=== PATIENT | male | born 1955 | race Caucasian/White ===

== ENCOUNTER 2017-09-22 11:28 | Inpatient (IN) | payer OTHER ==
[~2017-09-22] VITALS: Ht 172.7 cm; Wt 65.0 kg
[~2017-09-22 11:28] MED LIST: Z.0.NO CURRENT MEDS
[2017-09-22] MEDS ORDERED: IOHEXOL 350 MG/ML 10 ML VIAL (for RAD DIAG) IVCONTRAST ONE (11:29)
[2017-09-22 11:36] VITALS: O2SAT 97
--- NOTE | 2017-09-22 11:50 | PD ---
HPI Chief Complaint: fall Time Seen by Provider: 11:29 Travel History International Travel<30 days: No Contact w/Intl Traveler<30days: No History of Present Illness HPI 62-year-old male fell about 10 feet out of a tree and injured his left hip area. He states he did not hit his head or blacked out that he knows of. He denies any other concurrent complaints other than his hip. He states he is not taking any blood thinners. He received morphine and Zofran prior to arrival. His vitals were stable in route. Quality pain is sharp. Severity is moderate now after pain medications. Pain is worse with movement. He denies other modifying factors. He was called a trauma alert based on his age and height of fall with long bone fracture. [facility] Past Medical History Medical History: Denies Significant Hx Past Surgical History Surgical History: No Previous Surgery Social History Tobacco Use: Yes Allergies-Medications (Allergen,Severity, Reaction): Coded Allergies: codeine (Verified Allergy, Severe, violently ill, 09/22/17) Reported Meds & Prescriptions Reported Meds & Active Scripts Active No Active Prescriptions or Reported Medications Review of Systems Except as stated in HPI: all other systems reviewed are Neg Physical Exam Narrative GENERAL: Well-nourished, well-developed patient. SKIN: Warm and dry. HEAD: Normocephalic and atraumatic. EYES: No injection or drainage. ENT: No nasal drainage noted. NECK: Supple, trachea midline. C-collar in place CARDIOVASCULAR: Regular rate and rhythm RESPIRATORY: Breath sounds equal bilaterally. No accessory muscle use. GASTROINTESTINAL: Abdomen soft, non-tender, nondistended. EXTREMITIES:Pain with palpation of left hip, no pain with other joints , neurovascularly intact, no lacerations over, compartments soft. BACK: Nontender without obvious deformity with logroll. NEUROLOGICAL: Awake and alert. Motor and sensory grossly within normal limits other than limited to pain from left hip. Normal speech. Data Data Last Documented VS Vital Signs Date Time Temp Pulse Resp B/P (MAP) Pulse Ox O2 Delivery O2 Flow Rate FiO2 09/22/17 11:36 97 2.00 09/22/17 11:36 Nasal Cannula Orders Orders I-Stat Profile (09/22/17 11:30) Complete Blood Count With Diff (09/22/17 11:30) Prothrombin Time / Inr (Pt) (09/22/17 11:30) Act Partial Throm Time (Ptt) (09/22/17 11:30) Type And Screen (09/22/17 11:30) Chest, Single Ap (09/22/17 11:30) Pelvis, Ap Only (Routine) (09/22/17 11:30) Ct Brain W/O Iv Contrast(Rout) (09/22/17 11:30) Ct Cerv Spine W/O Contrast (09/22/17 11:30) Ct Abd/Pel W Iv Contrast(Rout) (09/22/17 11:30) Ct Thorax/ Chest W Iv Contrast (09/22/17 11:30) Iv Access Insert/Monitor (09/22/17 11:30) Ecg Monitoring (09/22/17 11:30) Oximetry (09/22/17 11:30) Oxygen Administration (09/22/17 11:30) Femur, One View (09/22/17 ) Hip, Ap Only Wo Ap Pelvis (09/22/17 ) Ondansetron Inj (Zofran Inj) (09/22/17 12:00) Iohexol 350 Inj (Omnipaque 350 Inj) (09/22/17 11:29) Mcdonald's Traction (09/22/17 ) Admit Order (Ed Use Only) (09/22/17 13:17) Morphine Inj (Morphine Inj) (09/22/17 13:30) Ondansetron Inj (Zofran Inj) (09/22/17 13:30) Labs Laboratory Tests Test 09/22/17 11:31 White Blood Count 11.7 TH/MM3 Red Blood Count 4.78 MIL/MM3 Hemoglobin 13.6 GM/DL Bedside Hemoglobin 13.3 G/DL Hematocrit 40.6 % Bedside Hematocrit 39.0 % Mean Corpuscular Volume 84.9 FL Mean Corpuscular Hemoglobin 28.3 PG Mean Corpuscular Hemoglobin Concent 33.4 % Red Cell Distribution Width 15.2 % Platelet Count 262 TH/MM3 Mean Platelet Volume 8.0 FL Neutrophils (%) (Auto) 70.9 % Lymphocytes (%) (Auto) 19.7 % Monocytes (%) (Auto) 8.0 % Eosinophils (%) (Auto) 0.8 % Basophils (%) (Auto) 0.6 % Neutrophils # (Auto) 8.3 TH/MM3 Lymphocytes # (Auto) 2.3 TH/MM3 Monocytes # (Auto) 0.9 TH/MM3 Eosinophils # (Auto) 0.1 TH/MM3 Basophils # (Auto) 0.1 TH/MM3 CBC Comment DIFF FINAL Differential Comment Prothrombin Time 10.7 SEC Prothromb Time International Ratio 1.1 RATIO Activated Partial Thromboplast Time 22.7 SEC Bedside Sodium 141 MMOL/L Bedside Potassium 3.7 MMOL/L Bedside Chloride 102 MMOL/L Bedside Blood Urea Nitrogen 16 MG/DL Bedside Creatinine 1.0 MG/DL Bedside Glucose 146 MG/DL MDM Medical Decision Making Medical Screen Exam Complete: Yes Emergency Medical Condition: Yes Interpretation(s) I stats revealed and are normal Last 24 hours Impressions Pelvis X-Ray 09/22/171129 Signed Impressions: Service Date/Time: September 11:30 - CONCLUSION: Nondisplaced fractures suspected involving the pelvis as detailed above. Consider CT to further evaluate. Yaniv Alvarez Jr., MD Head CT 09/22/171129 Signed Impressions: Service Date/Time: September 11:42 - CONCLUSION: 1. No acute hemorrhage or mass effect. 2. Remote postsurgical changes with screw-plate fixation devices anterior maxilla. There is an apparent old left nasal bone fracture. Lalo Danielson MD Chest X-Ray 09/22/171129 Signed Impressions: Service Date/Time: September 11:30 - CONCLUSION: 1. Negative portable chest status post trauma. Vaughn Beltre MD Chest CT 09/22/170 Signed Impressions: Service Date/Time: September 11:50 - CONCLUSION: 1. Enlarged bilateral axillary adenopathy and adenopathy in the upper abdomen concerning for lymphoma/leukemia versus metastatic disease. 2. No acute thoracic injury. 3. Large hiatal hernia. 4. Right lower lateral rib fracture appear subacute to chronic. Hong Damian MD Cervical Spine CT 09/22/170 Signed Impressions: Service Date/Time: September 11:44 - CONCLUSION: 1. No fracture or dislocation. 2. Mild degenerative changes. Yaniv Alvarez Jr., MD Abdomen/Pelvis CT 09/22/171129 Signed Impressions: Service Date/Time: September 11:48 - CONCLUSION: 1. Acute fractures involving the left ischium, left inferior pubic ramus, and left intertrochanteric hip with small left pelvic hematoma. 2. Retroperitoneal adenopathy worrisome for a myeloproliferative disorder. 3. Tiny low-density lesions involving the liver likely related to cysts. Yaniv Alvarez Jr., MD Hip X-Ray 09/22/17 0000 Signed Impressions: Service Date/Time: September 11:30 - CONCLUSION: 1. Comminuted left femoral intertrochanteric fracture. 2. Nondisplaced left inferior pubic ramus fracture. Vaughn Beltre MD Femur X-Ray 09/22/17 0000 Signed Impressions: Service Date/Time: September 11:30 - CONCLUSION: 1. Comminuted left femoral intertrochanteric fracture. 2. Nondisplaced left inferior pubic ramus fracture. Vaughn Beltre MD Differential Diagnosis Fracture, strain, sprain, bleed Narrative Course Patient was brought into the trauma room. Vital stable. Emergency department E -FAST was performed with patient consent. The curvilinear probe was used in the right upper quadrant/Morison's pouch, suprapubic, left upper quadrant/spleenorenal space, epigastric, parasternal long axis. There was no evidence of peritoneal free fluid, pericardial effusion Patient was removed from backboard and went to CT on the monitor. Workup showed hip fracture, and pelvic fractures with hematoma. Patient also updated about concerning findings of adenopathy with concerns for myeloproliferative disorder and he has not her that this and understands this will need to be worked up. He agrees to admission Physician Communication Physician Communication Dr. Betancourt agrees to admit Diagnosis Primary Impression: Fracture, intertrochanteric, left femur Qualified Codes: S72.142A - Displaced intertrochanteric fracture of left femur , initial encounter for closed fracture Additional Impressions: Fracture of left ischium Fracture of left inferior pubic ramus Qualified Codes: S32.592A - Other specified fracture of left pubis, initial encounter for closed fracture Pelvic hematoma in male Admitting Information Admitting Physician Requests: Admit Scripts No Active Prescriptions or Reported Meds Betty Simms MD Sep 22, 2017 11:50
[2017-09-22 11:52] LABS: AUTOMATED NEUTROPHIL # 8.3 TH/MM3 (1.8-7.7); BASOPHIL # 0.1 TH/MM3 (0-0.2); BASOPHIL % 0.6 % (0.0-2.0); EOSINOPHIL # 0.1 TH/MM3 (0-0.4); EOSINOPHIL % 0.8 % (0.0-4.0); HEMATOCRIT 40.6 % (39.0-51.0); HEMOGLOBIN 13.6 GM/DL (13.0-17.0); LYMPH % 19.7 % (9.0-44.0); LYMPHOCYTE # 2.3 TH/MM3 (1.0-4.8); MEAN CELL VOLUME 84.9 FL (80.0-100.0); MEAN CORPUSCULAR HEMOGLOBIN 28.3 PG (27.0-34.0); MEAN CORPUSCULAR HGB CONC 33.4 % (32.0-36.0); MONOCYTE # 0.9 TH/MM3 (0-0.9); NEUT % 70.9 % (16.0-70.0); PLATELET COUNT 262 TH/MM3 (150-450); RED BLOOD COUNT 4.78 MIL/MM3 (4.50-5.90); RED CELL DISTRIBUTION WIDTH 15.2 % (11.6-17.2); WHITE BLOOD COUNT 11.7 TH/MM3 (4.0-11.0)
--- NOTE | 2017-09-22 11:53 | RADRPT ---
EXAM DATE/TIME: 09/22/2017 11:30 [facility] COMPARISON: No previous studies available for comparison. INDICATIONS : Trauma alert. Fall. MEDICAL HISTORY : None. SURGICAL HISTORY : None. ENCOUNTER: Initial ACUITY: 1 day PAIN SCORE: Non-responsive. LOCATION: Bilateral chest FINDINGS: A single view of the chest demonstrates the lungs to be symmetrically aerated without evidence of mas s, infiltrate or effusion. The cardiomediastinal contours are unremarkable. Osseous structures are intact. CONCLUSION: 1. Negative portable chest status post trauma. Vaughn Beltre MD on September 22, 2017 at 11:49 Board Certified Radiologist. This report was verified electronically.
--- NOTE | 2017-09-22 11:55 | RADRPT ---
EXAM DATE/TIME: 09/22/2017 11:30 [facility] COMPARISON: No previous studies available for comparison. INDICATIONS : Trauma alert. Fall. MEDICAL HISTORY : None. SURGICAL HISTORY : None. ENCOUNTER: Initial ACUITY: 1 day PAIN SCORE: Non-responsive. LOCATION: Left pelvis FINDINGS: A single portable frontal view the chest shows linear lucencies involving the right pubis as well as the left inferior pubic ramus. Similar finding involving the ischium on the left. Concern for possibl e nondisplaced fractures in these locations. Remaining pelvis is intact. CONCLUSION: Nondisplaced fractures suspected involving the pelvis as detailed above. Consider CT to further evalu ate. Yaniv Alvarez Jr., MD on September 22, 2017 at 11:48 Board Certified Radiologist. This report was verified electronically.
--- NOTE | 2017-09-22 11:56 | RADRPT ---
EXAM DATE/TIME: 09/22/2017 11:30 [facility] COMPARISON: No previous studies available for comparison. INDICATIONS : Trauma alert. Fall. MEDICAL HISTORY : None. SURGICAL HISTORY : None. ENCOUNTER: Initial ACUITY: 1 day PAIN SCORE: Non-responsive. LOCATION: Left femur FINDINGS: There is a comminuted intertrochanteric fracture of the left femur. There is also a nondisplaced left inferior pubic ramus fracture. Soft tissues are grossly unremarkable. CONCLUSION: 1. Comminuted left femoral intertrochanteric fracture. 2. Nondisplaced left inferior pubic ramus fracture. Vaughn Beltre MD on September 22, 2017 at 11:50 Board Certified Radiologist. This report was verified electronically.
--- NOTE | 2017-09-22 11:57 | RADRPT ---
EXAM DATE/TIME: 09/22/2017 11:30 [facility] COMPARISON: No previous studies available for comparison. INDICATIONS : Trauma alert. Fall. MEDICAL HISTORY : None. SURGICAL HISTORY : None. ENCOUNTER: Initial ACUITY: 1 day PAIN SCORE: Non-responsive. LOCATION: Left hip FINDINGS: Comminuted intertrochanteric fracture of the left femur. Nondisplaced left inferior pubic ramus fract ure. Peak symphysis and SI joints appear maintained. Visualized sacral arches are intact. Soft tissue s are unremarkable. CONCLUSION: 1. Comminuted left femoral intertrochanteric fracture. 2. Nondisplaced left inferior pubic ramus fracture. Vaughn Beltre MD on September 22, 2017 at 11:53 Board Certified Radiologist. This report was verified electronically.
--- NOTE | 2017-09-22 11:57 | RADRPT ---
EXAM DATE/TIME: 09/22/2017 11:42 [facility] COMPARISON: No previous studies available for comparison. INDICATIONS : Truma fell out of a tree RADIATION DOSE: 69.15 CTDIvol (mGy) MEDICAL HISTORY : unable to obtain SURGICAL HISTORY : unable to obtain ENCOUNTER: Initial ACUITY: 1 day PAIN SCALE: 8/10 LOCATION: cranial TECHNIQUE: Multiple contiguous axial images were obtained of the head. Using automated exposure control and adj ustment of the mA and/or kV according to patient size, radiation dose was kept as low as reasonably a chievable to obtain optimal diagnostic quality images. DICOM format image data is available electro nically for review and comparison. FINDINGS: CEREBRUM: The ventricles are normal for age. No evidence of midline shift, mass lesion, hemorrhage or acute in farction. No extra-axial fluid collections are seen. POSTERIOR FOSSA: The cerebellum and brainstem are intact. The 4th ventricle is midline. The cerebellopontine angle i s unremarkable. EXTRACRANIAL: The visualized portion of the orbits is intact. SKULL: The calvaria is intact. No evidence of skull fracture. Postoperative changes are noted with screw-pl ate fixation devices along the maxilla. There is an old fracture of left nasal bone. CONCLUSION: 1. No acute hemorrhage or mass effect. 2. Remote postsurgical changes with screw-plate fixation devices anterior maxilla. There is an appare nt old left nasal bone fracture. Lalo Danielson MD on September 22, 2017 at 11:52 Board Certified Radiologist. This report was verified electronically.
[2017-09-22] MEDS ORDERED: SODIUM CHLOR 0.9% 250 ML INJ 250 ML IV ONE (12:00)
[2017-09-22] MEDS ORDERED: ONDANSETRON HCL 4 MG/2 ML VIAL ONE (12:00)
[2017-09-22] MEDS ORDERED: LIDOCAINE HCL 1% PF 5 ML SYRINGE OTHER ONE (12:00)
[2017-09-22] MEDS ORDERED: NEOSTIGMINE 5 MG/5 ML SYRINGE IV PUSH ONE (12:00)
[2017-09-22] MEDS ORDERED: ONDANSETRON HCL 4 MG/2 ML VIAL IV ONE (12:00)
[2017-09-22] MEDS ORDERED: ROCURONIUM INJ 50 MG/5 ML SYRINGE IV PUSH ONE (12:00)
[2017-09-22] MEDS ORDERED: DEXAMETHASONE SOD PHOS 4 MG/ML VIAL IV ONE (12:00)
[2017-09-22] MEDS ORDERED: GLYCOPYRROLATE 1 MG/5 ML SYRINGE IV PUSH ONE (12:00)
[2017-09-22] MEDS ORDERED: PROPOFOL 200 MG/20 ML AMP IV ONE (12:00)
[2017-09-22 12:01] LABS: INTERNATIONAL NORMALIZED RATIO 1.1 RATIO; PROTHROMBIN TIME - PATIENT 10.7 SEC (9.8-11.6)
--- NOTE | 2017-09-22 12:18 | RADRPT ---
EXAM DATE/TIME: 09/22/2017 11:50 [facility] COMPARISON: No previous studies available for comparison. INDICATIONS : Fell out of a tree IV CONTRAST: 95 cc Omnipaque 350 (iohexol) IV ; Cumulative dose for multiple exams. RADIATION DOSE: 5.1 CTDIvol (mGy) ; Combined studies - Thorax/Abdomen/Pelvis MEDICAL HISTORY : Unable to obtain SURGICAL HISTORY : unable to obtain ENCOUNTER: Initial ACUITY: 1 day PAIN SCALE: 8/10 LOCATION: chest TECHNIQUE: Volumetric scanning of the chest was performed. Using automated exposure control and adjustment of t he mA and/or kV according to patient size, radiation dose was kept as low as reasonably achievable to obtain optimal diagnostic quality images. DICOM format image data is available electronically for review and comparison. Follow-up recommendations for detected pulmonary nodules are based at a minimum on nodule size and pa tient risk factors according to Fleischner Society Guidelines. FINDINGS: LUNGS: There is no consolidation or pneumothorax. Several 3-4 mm neither nodules in the right lung, likely b enign. PLEURA: There is no pleural thickening or pleural effusion. MEDIASTINUM: The heart and great vessels demonstrate no acute abnormality. There is no mediastinal or hilar lymph adenopathy. AXILLAE: Enlarged bilateral axillary lymphadenopathy. SKELETAL: Right lower lateral rib fracture appears subacute to chronic. Vertebral plana of T7 likely old injury MISCELLANEOUS: The visualized upper abdominal organs demonstrate no acute abnormality. Subcentimeter low densities. CONCLUSION: 1. Enlarged bilateral axillary adenopathy and adenopathy in the upper abdomen concerning for lymphoma /leukemia versus metastatic disease. 2. No acute thoracic injury. 3. Large hiatal hernia. 4. Right lower lateral rib fracture appear subacute to chronic. Hong Damian MD on September 22, 2017 at 12:12 Board Certified Radiologist. This report was verified electronically.
--- NOTE | 2017-09-22 12:28 | RADRPT ---
EXAM DATE/TIME: 09/22/2017 11:44 [facility] COMPARISON: No previous studies available for comparison. INDICATIONS : Fell out of a tree RADIATION DOSE: 31.78 CTDIvol (mGy) MEDICAL HISTORY : Unable to obtain SURGICAL HISTORY : unable to obtain ENCOUNTER: Initial ACUITY: 1 day PAIN SCALE: 8/10 LOCATION: neck TECHNIQUE: Volumetric scanning of the cervical spine was performed. Multiplanar reconstructions in the sagittal, coronal and oblique axial planes were performed. Using automated exposure control and adjustment o f the mA and/or kV according to patient size, radiation dose was kept as low as reasonably achievable to obtain optimal diagnostic quality images. DICOM format image data is available electronically f or review and comparison. FINDINGS: VERTEBRAE: Normal vertebral body height. ALIGNMENT: No evidence of subluxation. C2-C3: The bony spinal canal is normal in size. No evidence of disc bulge or herniation. The neural forami na are bilaterally patent. C3-C4: There is a minimal broad-based disc bulge. No abutment of the cord or central canal stenosis. Neural foramina on the right shows mild narrowing due to bony uncovertebral hypertrophy. The left is patent. C4-C5: Minimal broad-based disc bulge. No central canal stenosis or abutment of the cord. Neural foramina ar e patent. C5-C6: There is a mild broad-based disc osteophyte complex that just touches the ventral portion of the cord . Central canal measures 1 cm in anterior to posterior dimension. Bony uncovertebral hypertrophy gene rates mild neural foraminal narrowing bilaterally. C6-C7: The bony spinal canal is normal in size. No evidence of disc bulge or herniation. The neural forami na are bilaterally patent. C7-T1: The bony spinal canal is normal in size. No evidence of disc bulge or herniation. The neural forami na are bilaterally patent. CONCLUSION: 1. No fracture or dislocation. 2. Mild degenerative changes. Yaniv Alvarez Jr., MD on September 22, 2017 at 12:03 Board Certified Radiologist. This report was verified electronically.
--- NOTE | 2017-09-22 12:36 | RADRPT ---
EXAM DATE/TIME: 09/22/2017 11:48 [facility] COMPARISON: PELVIS AP ONLY, September 22, 2017, 11:30. INDICATIONS : Fell out of tree IV CONTRAST: 95 cc Omnipaque 350 (iohexol) IV ; Cumulative dose for multiple exams. ORAL CONTRAST: No oral contrast ingested. RADIATION DOSE: 5.1 CTDIvol (mGy) ; Combined studies - Thorax/Abdomen/Pelvis MEDICAL HISTORY : unable to obtain SURGICAL HISTORY : unable to obtain ENCOUNTER: Initial ACUITY: 1 day PAIN SCALE: 8/10 LOCATION: Abdomen TECHNIQUE: Volumetric scanning of the abdomen and pelvis was performed. Using automated exposure control and ad justment of the mA and/or kV according to patient size, radiation dose was kept as low as reasonably achievable to obtain optimal diagnostic quality images. DICOM format image data is available electro nically for review and comparison. FINDINGS: LOWER LUNGS: A large hiatal hernia. Lung bases are clear. No pericardial effusion. LIVER: Numerous tiny low density lesions are seen scattered throughout the liver. These are too small to acc urately characterize. They are well circumscribed and very low in density. No solid-appearing lesions . Portal vein is patent. Gallbladder is unremarkable. SPLEEN: Normal size without lesion. PANCREAS: Within normal limits. KIDNEYS: Normal in size and shape. There is no mass, stone or hydronephrosis. ADRENAL GLANDS: Within normal limits. VASCULAR: There is no aortic aneurysm. BOWEL/MESENTERY: The stomach, small bowel, and colon demonstrate no acute abnormality. There is no free intraperitone al air or fluid. ABDOMINAL WALL: Within normal limits. RETROPERITONEUM: There is retroperitoneal adenopathy observed within the cephalad portion of the retroperitoneum. This is centered around the level the renal artery origins. The largest lymph node that can be isolated f or accurate measurement measures 3.1 x 2.3 cm. BLADDER: No wall thickening or mass. REPRODUCTIVE: Within normal limits. INGUINAL: There is no lymphadenopathy or hernia. MUSCULOSKELETAL: Acute fractures are seen involving the pelvis and left hip. There is a comminuted intertrochanteric h ip fracture on the left. The femoral head remains in contact with the acetabulum. There is an acute f racture through the left inferior pubic ramus as well as to the left ischium. The right pubis is inta ct. No significant displacement of the fracture fragments observed. A subtle fracture involving the l eft sacral ala also noted. A small hematoma seen involving the left hemipelvis. No acute extravasatio n. CONCLUSION: 1. Acute fractures involving the left ischium, left inferior pubic ramus, and left intertrochanteric hip with small left pelvic hematoma. 2. Retroperitoneal adenopathy worrisome for a myeloproliferative disorder. 3. Tiny low-density lesions involving the liver likely related to cysts. Yaniv Alvarez Jr., MD on September 22, 2017 at 12:25 Board Certified Radiologist. This report was verified electronically.
[2017-09-22] MEDS ORDERED: MORPHINE SULFATE 4 MG/ML INJ IV PUSH ONE (13:30)
[2017-09-22] MEDS ORDERED: ONDANSETRON HCL 4 MG/2 ML VIAL IV PUSH ONE (13:30)
[2017-09-22 13:33] VITALS: BP 120/70; PULSE 48; RESP 15; O2SAT 96
[2017-09-22 14:26] VITALS: BP 124/72; PULSE 50; RESP 16; O2SAT 97
[2017-09-22] MEDS ORDERED: SODIUM CHLOR 0.9% 1000 ML INJ 1,000 ML IV SCH (15:28)
[2017-09-22] MEDS ORDERED: ONDANSETRON HCL 4 MG/2 ML VIAL IV PUSH PRN (15:30)
[2017-09-22] MEDS ORDERED: ENALAPRILAT 1.25 MG/ML VIAL IV PUSH PRN (15:30)
[2017-09-22] MEDS: LIDOCAINE HCL 5% PATCH T-DERMAL SCH (15:30)
[2017-09-22] MEDS ORDERED: MORPHINE SULFATE 4 MG/ML INJ IV PUSH PRN (15:30)
[2017-09-22 16:00] VITALS: BP 131/74; PULSE 60; RESP 18; TEMP 96.9; O2SAT 98
[2017-09-22] MEDS ORDERED: GENTAMICIN SULFATE 80 MG/2 ML VIAL ONE (16:32)
[2017-09-22] MEDS: METHOCARBAMOL 500 MG TAB PO SCH ×2 (16:32→23:47)
[2017-09-22] MEDS: ACETAMINOPHEN 1000 MG/100 ML 100 ML IV SCH ×2 (16:47→22:03)
[2017-09-22] MEDS ORDERED: HYDR-3288 PO (17:37)
[2017-09-22] MEDS ORDERED: ASPI81CH6 CHEW (17:38)
[2017-09-22] MEDS ORDERED: VANCOMYCIN HCL 1000 MG VIAL ONE (17:44)
[2017-09-22] MEDS ORDERED: ceFAZolin 2 GM PREMIX 50 ML ONE (17:44)
[2017-09-22] MEDS ORDERED: MISCELLANEOUS PHARMACY INFORMATION XX ONE (17:45)
[2017-09-22] MEDS ORDERED: diphenhydrAMINE HCL 25 MG CAP PO PRN (17:45)
[2017-09-22] MEDS ORDERED: Post-op Orders (for Pharmacy) XX ONE (17:45)
[2017-09-22] MEDS ORDERED: MISCELLANEOUS NURSING INFORMATION XX PRN (17:45)
[2017-09-22] MEDS ORDERED: MAGNESIUM HYDROXIDE SUSP 30 ML CUP PO PRN (17:45)
--- NOTE | 2017-09-22 18:17 | MH ---
cc: SORAYA CONTRERAS MD DATE OF ADMISSION 09/22/2017 ADMISSION DIAGNOSIS Fall from a tree, intertrochanteric hip fracture HISTORY OF PRESENT ILLNESS A 62-year-old male fell out of a tree, injured his left hip. He did not lose consciousness and remembers the whole thing. He complained about severe pain in the hip and was brought in as priority two trauma alert. The patient was worked up and is now being admitted to the Trauma Service. PAST MEDICAL HISTORY Negative. PAST SURGERIES None ALLERGIES No allergies. MEDICATIONS No medications. SOCIAL HISTORY The patient smokes a pack a day most of his adult life. PHYSICAL EXAMINATION GENERAL: A pleasant gentleman in no acute distress. HEENT: Normocephalic. No trauma to the head. Pupils equally reactive. Extraocular muscles intact. No hemotympanum. No Sims sign, no raccoon's eyes. Oral cavity is intact. NECK: Bilateral carotid pulses. No bruits. C-collar is in place and will be removed later based on the x-ray reading. HEART: Regular rhythm. No murmurs. Hemodynamically intact. LUNGS: Bilateral breath sounds. ABDOMEN soft. Active bowel sounds. No masses. No organomegaly. EXTREMITIES: The patient has bilateral femoral, popliteal, dorsalis pedis, posterior tibial pulses. On palpation, he is very tender on the left hip area and any movement of the left leg causes extreme pain. BACK: The patient is log-rolled to the back. There are no injuries noted. NEUROLOGIC: The patient is awake, alert. Latasha coma scale is 15. Motor and sensory fully intact. Normal deep tendon reflexes. No pathologic reflexes. LYMPH: Examination of the lymphatic system reveals some enlarged lymph nodes noted in the supraclavicular area and both axillary areas. Groins - there are some scattered small nodes. RECOMMENDATIONS A 62-year-old male with final diagnosis of left intertrochanteric hip fracture, left inferior and superior ramus pubis fracture with some displacement. The patient will be admitted to trauma service and further care per orthopedics. In addition, it should be noted that this gentleman has bilateral extra lymphadenopathy which is palpable and a CT of the abdomen incidentally reveals retroperitoneal lymph nodes which are fairly large to about 3 cm in the periaortic area. This is definitely a pathologic finding and could be associated with a occult lymphoma or metastatic disease and will have to be worked up further when this acute phase is over. Critical care 40 minutes. Soraya MELTON/ /4:55 PM /5:49 PM
--- NOTE | 2017-09-22 19:01 | RADRPT ---
EXAM DATE/TIME: 09/22/2017 18:15 [facility] COMPARISON: No previous studies available for comparison. INDICATIONS : Left hip fracture, ORIF done in operating room. MEDICAL HISTORY : Unable to obtain. SURGICAL HISTORY : Unable to obtain. ENCOUNTER: Initial ACUITY: 1 day PAIN SCORE: Non-responsive. LOCATION: Left hip FINDINGS: ORIF of left proximal femur fracture is noted with hardware in good position. CONCLUSION: ORIF of left proximal femur fracture with hardware in good position. Steve Teague MD on September 22, 2017 at 18:58 Board Certified Radiologist. This report was verified electronically.
[2017-09-22] MEDS: DEXT 5%-NACL 0.45% 1000 ML INJ 1,000 ML IV SCH (19:40)
[2017-09-22] MEDS ORDERED: *morphine SULFATE 8 MG/ML PERIprocedure ONLY ONE (19:57)
[2017-09-22 20:46] VITALS: BP 116/74; PULSE 56; RESP 18; TEMP 96.9; O2SAT 97
[2017-09-22] MEDS: DOCUSATE SODIUM 50 MG/SENNA 8.6 MG TAB PO SCH (21:00)
[2017-09-22] MEDS: MAGNESIUM HYDROXIDE SUSP 30 ML CUP PO SCH (21:00)
[2017-09-22] MEDS ORDERED: DOCUSATE SODIUM 100 MG CAP PO SCH (21:00)
[2017-09-22] MEDS: FAMOTIDINE 20 MG TAB PO SCH (21:00)
[2017-09-22] MEDS: REMOVE OLD LIDOCAINE PATCH T-DERMAL SCH (21:00)
--- NOTE | 2017-09-22 21:35 | MB ---
cc: VANESSA BROWN MD DATE OF CONSULTATION 09/22/17 REASON FOR CONSULTATION Left intertrochanteric hip fracture, multiple trauma with pelvic rami fractures. HISTORY OF RESENT ILLNESS This patient is a 62-year-old male who fell approximately 10 feet out of a tree onto his left hip. He states he did not lose consciousness that he knows of. He complains of severe pain in regards to his left hip with inability to stand, walk, ambulate or bear weight. He is not taking any blood thinners. He received morphine upon arrival to the emergency room. He was a trauma alert patient due to his fall injury and mechanism. Pain is severe, constant, sharp and worsening symptoms with any movement. The morphine has given slight relief of his symptoms. He is a trauma alert based on his age, fall from height mechanism and long bone fracture. PAST MEDICAL HISTORY Negative. PAST SURGICAL HISTORY Negative. ALLERGIES CODEINE - CAUSES HIM TO HAVE NAUSEA ONLY. SOCIAL HISTORY He smokes greater than one pack of cigarettes per day, has done so for many years. He does not currently take any medications. REVIEW OF SYSTEMS Negative for 10 systems other than HPI. PHYSICAL EXAMINATION GENERAL: Patient is a well-nourished male lying in bed. He is in moderate distress. HEENT: Normocephalic, atraumatic. Pupils are round. Extraocular muscles intact. NECK: Supple. LUNGS: Clear. HEART: Regular rate and rhythm. ABDOMEN: Soft, nontender. SKIN: Warm, dry, intact. EXTREMITIES: His left hip shows swelling of his hip and thigh region with tenderness to palpatoin. Compartment still appears soft. He can flex and extend his ankle and toes distally. He has a 2+ dorsalis pedis pulse. Sensation intact distally. His mood and affect are appropriate. VITAL SIGNS: Temperature is 98, pulse 84, respirations 16, blood pressure 130/80. White blood cell count is 11.7, hemoglobin 13, hematocrit 40, platelet count is 262. IMAGING STUDIES X-rays of the pelvis shows nondisplaced fractures involving the pelvic rami. CT head No acute hemorrhage or mass effect. There is screw and plate fixation of the anterior maxilla with an apparent old nasal bone fracture. Chest x-ray negative. CT of the chest shows enlarged bilateral axillary adenopathy concerning for lymphoma, leukemia versus metastatic disease. No acute thoracic injury. CT scan of the cervical spine shows no fracture dislocation. There are mild degenerative changes. CT of the abdomen and pelvis shows acute fractures involving the left ischium, left inferior pelvic rami. There is a left intertrochanteric hip fracture, pelvic hematoma, retroperitoneal adenopathy which has concern for myeloproliferative disorder, liver cyst. The left hip x-ray - comminuted left intertrochanteric hip fracture with displacement, nondisplaced left pelvic rami fracture. X-rays left femur shows comminuted left intertrochanteric hip fracture and left-sided pelvic rami fracture. IMPRESSION A 52-year male status post fall from a tree with a left comminuted displaced intertrochanteric hip fracture, left pelvic rami fractures. PLAN I discussed the diagnosis with the patient, treatment options in regards to left intertrochanteric hip fracture. We discussed the option of nonoperative treatment versus surgery. Surgery would consist of open reduction internal fixation with Intramedullary trochanteric femoral nailing. Risks of surgery were discussed which include but are not limited to anesthesia, bleeding, infection, damage to nerves, blood vessels, pain, stiffness, failure of hardware, nonunion, malunion, blood clots, pulmonary embolism, even . The patient's pain is severe. He favored the benefits over the risks and did wish to proceed with surgery. I would recommend nonoperative treatment of the pelvic fractures at this point including the rami fractures. He has an abnormality on his imaging which is concerning for myeloproliferative disorder. This can be worked up on a non-emergent basis at this point. The medical physician can work this up as appropriate and as necessary. The patient has asked appropriate questions. These have been answered. Written consent has been obtained. The surgical site has been marked and we will proceed with surgery of his left intertrochanteric hip fracture as outlined above. MD SHIRLEY Goss/ /5:40 PM /8:52 PM
[2017-09-22] MEDS ORDERED: DO NOT ADM ANY ANTICOAGULANT DRUGS PRN (22:15)
[2017-09-23] VITALS (8 sets, daily range): BP systolic 107–135; BP diastolic 66–72; PULSE 58–84; RESP 16–18; TEMP 96.6–98.4; O2SAT 94–97
[2017-09-23] MEDS: ACETAMINOPHEN/HYDROcodone 325 MG/7.5 MG TAB PO PRN (00:13)
[2017-09-23] MEDS: MORPHINE SULFATE 4 MG/ML INJ IV PUSH PRN (02:53)
[2017-09-23] MEDS: MAGNESIUM HYDROXIDE SUSP 30 ML CUP PO SCH ×2 (02:53→20:05)
[2017-09-23] MEDS: DEXT 5%-NACL 0.45% 1000 ML INJ 1,000 ML IV SCH ×3 (03:35→22:33)
[2017-09-23 03:57] LABS: AUTOMATED NEUTROPHIL # 10.2 TH/MM3 (1.8-7.7); BASOPHIL % 0.2 % (0.0-2.0); HEMOGLOBIN 11.7 GM/DL (13.0-17.0); LYMPH % 7.7 % (9.0-44.0); LYMPHOCYTE # 0.9 TH/MM3 (1.0-4.8); MEAN CELL VOLUME 85.6 FL (80.0-100.0); MEAN CORPUSCULAR HEMOGLOBIN 28.6 PG (27.0-34.0); MEAN CORPUSCULAR HGB CONC 33.5 % (32.0-36.0); MONO % 8.9 % (0.0-8.0); MONOCYTE # 1.1 TH/MM3 (0-0.9); NEUT % 83.2 % (16.0-70.0); PLATELET COUNT 183 TH/MM3 (150-450); RED BLOOD COUNT 4.09 MIL/MM3 (4.50-5.90); RED CELL DISTRIBUTION WIDTH 15.3 % (11.6-17.2); WHITE BLOOD COUNT 12.2 TH/MM3 (4.0-11.0)
[2017-09-23] MEDS: ACETAMINOPHEN 1000 MG/100 ML 100 ML IV SCH ×4 (04:00→22:32)
[2017-09-23 04:12] LABS: BICARBONATE 26.2 MEQ/L (21.0-32.0); CALCIUM 8.3 MG/DL (8.5-10.1); CREATININE 0.7 MG/DL (0.60-1.30)
[2017-09-23] MEDS: ONDANSETRON HCL 4 MG/2 ML VIAL IVP PRN (06:44)
--- NOTE | 2017-09-23 08:18 | RADRPT ---
EXAM DATE/TIME: 09/23/2017 07:43 [facility] COMPARISON: CHEST SINGLE AP, September 22, 2017, 11:30. INDICATIONS : Trauma. MEDICAL HISTORY : SURGICAL HISTORY : Left hip surgery. ENCOUNTER: Subsequent ACUITY: 1 day PAIN SCORE: 0/10 LOCATION: Bilateral chest FINDINGS: A single view of the chest demonstrates the lungs to be symmetrically aerated without evidence of mas s, infiltrate or effusion. There is prominent retrocardiac density likely hiatal hernia. The cardiome diastinal contours are unremarkable. Osseous structures are intact. CONCLUSION: No acute disease. Hong Damian MD on September 23, 2017 at 8:12 Board Certified Radiologist. This report was verified electronically.
[2017-09-23] MEDS: LIDOCAINE HCL 5% PATCH T-DERMAL SCH (08:59)
[2017-09-23] MEDS: FAMOTIDINE 20 MG TAB PO SCH ×2 (09:00→20:05)
[2017-09-23] MEDS: DOCUSATE SODIUM 50 MG/SENNA 8.6 MG TAB PO SCH ×2 (09:00→20:05)
[2017-09-23] MEDS: MULTIVITAMINS/MINERALS THERAPEUTIC TAB PO SCH (09:00)
[2017-09-23] MEDS: METHOCARBAMOL 500 MG TAB PO SCH ×3 (09:00→22:31)
--- NOTE | 2017-09-23 09:21 | PD.ORT.PN ---
Subjective Post Op Day #: 1 Subjective Remarks pain tolerable. meds causing nausea. Objective Vitals Vital Signs Date Time Temp Pulse Resp B/P (MAP) Pulse Ox O2 Delivery O2 Flow Rate FiO2 09/23/17 04:20 96.7 58 18 107/68 (81) 96 09/23/17 00:39 94 09/23/17 00:10 96.6 62 18 115/69 (84) 94 09/22/17 20:46 96.9 56 18 116/74 (88) 97 09/22/17 20:30 97.7 63 16 121/80 (94) 98 Nasal Cannula 2 09/22/17 20:15 61 17 117/81 (93) 97 Nasal Cannula 2 09/22/17 20:00 56 24 125/74 (91) 98 Nasal Cannula 2 09/22/17 19:45 59 24 141/80 (100) 99 Nasal Cannula 2 09/22/17 19:30 58 14 134/80 (98) 99 Nasal Cannula 2 09/22/17 19:15 60 12 129/78 (95) 98 Nasal Cannula 2 09/22/17 19:00 64 12 145/90 (108) 99 Nasal Cannula 2 09/22/17 18:51 97.8 78 14 145/85 (105) 99 Nasal Cannula 2 09/22/17 16:00 96.9 60 18 131/74 (93) 98 09/22/17 14:55 09/22/17 14:26 50 16 124/72 (89) 97 Room Air 09/22/17 13:33 48 15 120/70 (87) 96 Room Air 09/22/17 11:36 97 2.00 09/22/17 11:36 97 Nasal Cannula 2.00 I/O 09/22/17 09/22/17 09/22/17 09/23/17 09/23/17 09/23/17 07:00 15:00 23:00 07:00 15:00 23:00 Intake Total 720 ml 440 ml Output Total 225 ml 300 ml Balance 495 ml 140 ml Intake Oral 120 ml 240 ml IV Total 200 ml Other 600 ml Output Urine Total 200 ml 300 ml Estimated Blood Loss 25 ml # Bowel Movements 0 0 Result Diagram: 09/23/17 0325 09/23/17 0325 Other Results Laboratory Tests Test 09/22/17 11:31 Prothromb Time International Ratio 1.1 RATIO Prothrombin Time 10.7 SEC (9.8-11.6) Imaging Last 24 hours Impressions Chest X-Ray 09/23/17 0600 Signed Impressions: Service Date/Time: Saturday, September 23, 2017 07:43 - CONCLUSION: No acute disease. Hong Damian MD Pelvis X-Ray 09/22/171129 Signed Impressions: Service Date/Time: September 11:30 - CONCLUSION: Nondisplaced fractures suspected involving the pelvis as detailed above. Consider CT to further evaluate. Yaniv Alvarez Jr., MD Head CT 09/22/171129 Signed Impressions: Service Date/Time: September 11:42 - CONCLUSION: 1. No acute hemorrhage or mass effect. 2. Remote postsurgical changes with screw-plate fixation devices anterior maxilla. There is an apparent old left nasal bone fracture. Lalo Danielson MD Chest X-Ray 09/22/171129 Signed Impressions: Service Date/Time: September 11:30 - CONCLUSION: 1. Negative portable chest status post trauma. Vaughn Beltre MD Chest CT 09/22/171129 Signed Impressions: Service Date/Time: September 11:50 - CONCLUSION: 1. Enlarged bilateral axillary adenopathy and adenopathy in the upper abdomen concerning for lymphoma/leukemia versus metastatic disease. 2. No acute thoracic injury. 3. Large hiatal hernia. 4. Right lower lateral rib fracture appear subacute to chronic. Hong Damian MD Cervical Spine CT 09/22/171129 Signed Impressions: Service Date/Time: September 11:44 - CONCLUSION: 1. No fracture or dislocation. 2. Mild degenerative changes. Yaniv Alvarez Jr., MD Abdomen/Pelvis CT 09/22/171129 Signed Impressions: Service Date/Time: September 11:48 - CONCLUSION: 1. Acute fractures involving the left ischium, left inferior pubic ramus, and left intertrochanteric hip with small left pelvic hematoma. 2. Retroperitoneal adenopathy worrisome for a myeloproliferative disorder. 3. Tiny low-density lesions involving the liver likely related to cysts. Yaniv Alvarez Jr., MD Objective Remarks in bed, nad dressing c/d/i thigh swelling, soft neg homans nvi Assessment & Plan Ortho Post Op Day #: 1 Problem List: Assessment and Plan s/p L Troch Nail POD1 pelvic rami fxs TTWB daily dressing changes lovenox, d/c on [id number] d/c planning rx in chart f/up dr. almanza 2 weeks Isaias Urban Sep 23, 2017 09:21
--- NOTE | 2017-09-23 11:05 | HHI.PR ---
Subjective Subjective Notes PTD: 1 Patient lying in bed. Working with PT. Patient states his pain is 4-5/10. Patient states that he lives alone and in a single story home. Objective Vitals/I&O Vital Signs Date Time Temp Pulse Resp B/P (MAP) Pulse Ox O2 Delivery O2 Flow Rate FiO2 09/23/17 09:38 96 Nasal Cannula 2.00 09/23/17 08:00 97.3 66 16 135/68 (90) Labs Laboratory Tests Test 09/22/17 11:31 09/23/17 03:25 White Blood Count 11.7 12.2 Red Blood Count 4.78 4.09 Hemoglobin 13.6 11.7 Bedside Hemoglobin 13.3 Hematocrit 40.6 35.0 Bedside Hematocrit 39.0 Mean Corpuscular Volume 84.9 85.6 Mean Corpuscular Hemoglobin 28.3 28.6 Mean Corpuscular Hemoglobin Concent 33.4 33.5 Red Cell Distribution Width 15.2 15.3 Platelet Count 262 183 Mean Platelet Volume 8.0 8.0 Neutrophils (%) (Auto) 70.9 83.2 Lymphocytes (%) (Auto) 19.7 7.7 Monocytes (%) (Auto) 8.0 8.9 Eosinophils (%) (Auto) 0.8 0.0 Basophils (%) (Auto) 0.6 0.2 Neutrophils # (Auto) 8.3 10.2 Lymphocytes # (Auto) 2.3 0.9 Monocytes # (Auto) 0.9 1.1 Eosinophils # (Auto) 0.1 0.0 Basophils # (Auto) 0.1 0.0 CBC Comment DIFF FINAL DIFF FINAL Differential Comment Prothrombin Time 10.7 Prothromb Time International Ratio 1.1 Activated Partial Thromboplast Time 22.7 Bedside Sodium 141 Bedside Potassium 3.7 Bedside Chloride 102 Bedside Blood Urea Nitrogen 16 Bedside Creatinine 1.0 Bedside Glucose 146 Blood Urea Nitrogen 12 Creatinine 0.70 Random Glucose 146 Calcium Level 8.3 Sodium Level 137 Potassium Level 3.9 Chloride Level 104 Carbon Dioxide Level 26.2 Anion Gap 7 Estimat Glomerular Filtration Rate 97 Radiology Last Impressions Chest X-Ray 09/23/17 0600 Signed Impressions: Service Date/Time: Saturday, September 23, 2017 07:43 - CONCLUSION: No acute disease. Hong Damian MD Pelvis X-Ray 09/22/171129 Signed Impressions: Service Date/Time: September 11:30 - CONCLUSION: Nondisplaced fractures suspected involving the pelvis as detailed above. Consider CT to further evaluate. Yaniv Alvarez Jr., MD Head CT 09/22/171129 Signed Impressions: Service Date/Time: September 11:42 - CONCLUSION: 1. No acute hemorrhage or mass effect. 2. Remote postsurgical changes with screw-plate fixation devices anterior maxilla. There is an apparent old left nasal bone fracture. Lalo Danielson MD Chest CT 09/22/171129 Signed Impressions: Service Date/Time: September 11:50 - CONCLUSION: 1. Enlarged bilateral axillary adenopathy and adenopathy in the upper abdomen concerning for lymphoma/leukemia versus metastatic disease. 2. No acute thoracic injury. 3. Large hiatal hernia. 4. Right lower lateral rib fracture appear subacute to chronic. Hong Damian MD Cervical Spine CT 09/22/171129 Signed Impressions: Service Date/Time: September 11:44 - CONCLUSION: 1. No fracture or dislocation. 2. Mild degenerative changes. Yaniv Alvarez Jr., MD Abdomen/Pelvis CT 09/22/171129 Signed Impressions: Service Date/Time: September 11:48 - CONCLUSION: 1. Acute fractures involving the left ischium, left inferior pubic ramus, and left intertrochanteric hip with small left pelvic hematoma. 2. Retroperitoneal adenopathy worrisome for a myeloproliferative disorder. 3. Tiny low-density lesions involving the liver likely related to cysts. Yaniv Alvarez Jr., MD Hip X-Ray 09/22/17 0000 Signed Impressions: Service Date/Time: September 18:15 - CONCLUSION: ORIF of left proximal femur fracture with hardware in good position. Steve Teague MD Femur X-Ray 09/22/17 0000 Signed Impressions: Service Date/Time: September 11:30 - CONCLUSION: 1. Comminuted left femoral intertrochanteric fracture. 2. Nondisplaced left inferior pubic ramus fracture. Vaughn Beltre MD Narrative Exam GENERAL: This is a 62-year-old male lying in bed. No distress noted. SKIN: Warm and dry. HEAD: Atraumatic. Normocephalic. EYES: PERRLA ENT: No nasal bleeding or discharge. Mucous membranes pink and moist. NECK: Trachea midline. No JVD. CARDIOVASCULAR: Regular rate and rhythm. RESPIRATORY: No accessory muscle use. Lungs are clear to auscultation. Breath sounds equal bilaterally. No distress or dyspnea. GASTROINTESTINAL: BS + x 4 quads. Abdomen soft, non-tender, nondistended. MUSCULOSKELETAL: Extremities without cyanosis, or edema. + peripheral pulses x 4 extremities. Warm with good capillary refill and sensation. MAEW. NEUROLOGICAL: Awake and alert. Normal speech and pattern. A/P Problem List: (1) Fracture, intertrochanteric, left femur ICD Codes: S72.142A - Displaced intertrochanteric fracture of left femur, initial encounter for closed fracture Status: Acute (2) Fracture of left ischium ICD Codes: S32.602A - Unspecified fracture of left ischium, initial encounter for closed fracture Status: Acute (3) Pelvic hematoma in male ICD Codes: N50.1 - Vascular disorders of male genital organs Status: Acute (4) Fracture of left inferior pubic ramus ICD Codes: S32.592A - Other specified fracture of left pubis, initial encounter for closed fracture Status: Acute Assessment and Plan [place]: This is a 62-year-old male who sustained a fall. He fell from a tree, approximately 10 feet. He landed on his left hip. No LOC. INJURIES: RIGHT rib fx (sub acute vs. chronic) LEFT ischium fx LEFT inferior pubic ramus fx (non-op) LEFT femoral intertrochanter fx Small pelvic hematoma Procedures: 09/22: LEFT troch nail Consults: Orthopedics. Case management. Diet: Regular diet. Tolerating po diet. Encourage good po intake with each meal. Pulmonary: Encourage good pulmonary toileting. IS and acapella at bedside and pt encouraged to use. Rationale for use explained to patient, and verbalized understanding. PAIN Management: [place] 7.5-15 mg q 4h. Morphine 5 mg q 3h. Robaxin 500 mg q 8h. Lidoderm patch. OFIRMEV q 6 x 24h. Activity: OOB. PT and OT ordered. (TTWB LLE) GI prophylaxis: Pepcid 20 mg BID po. Bowel regimen: Ileana - colace and MOM. LBM: 0 DVT prophylaxis: Mechanical VTE with SCDs. Chemical management with Lovenox 40 QD SQ. DC Planning: Case management consulted for assistance with final discharge disposition. Awaiting PT evaluation to coordinate final DC plan. Emotional support provided to patient and family at bedside and plan of care discussed. Discussed with RN at bedside. Discussed pt condition and plan of care with collaborating trauma surgeon. Patient is hemodynamically stable and being managed on the med/surg floor. The trauma team will round each day, and evaluate plan of care on a daily basis. RIGHT rib fx (sub acute vs. chronic) O2 as needed Aggressive pulmonary toileting Chest x-rays as needed Pain management PT and OT ordered Encourage out of bed LEFT ischium fx LEFT inferior pubic ramus fx (non-op) LEFT femoral intertrochanter fx Small pelvic hematoma Orthopedics consulted and assisting in management and care 2: Left troch nail Pain management PT and OT ordered TTWB LLE Encourage out of bed Lovenox for DVT prophylaxis Antibiotics per orthopedics Dressings per orthopedics H&H stable Problem Qualifiers (1) Fracture, intertrochanteric, left femur: Qualified Codes: S72.142A - Displaced intertrochanteric fracture of left femur , initial encounter for closed fracture (2) Fracture of left ischium: (3) Fracture of left inferior pubic ramus: Qualified Codes: S32.592A - Other specified fracture of left pubis, initial encounter for closed fracture Danielle Ames Sep 23, 2017 11:05
--- NOTE | 2017-09-23 13:45 | MP ---
cc: VANESSA BROWN DATE OF SURGERY: 09/22/2017 PREOPERATIVE DIAGNOSIS: Left intertrochanteric hip fracture. POSTOPERATIVE DIAGNOSIS: Left intertrochanteric hip fracture. OPERATIVE PROCEDURE PERFORMED: Trochanteric femoral nailing left intertrochanteric hip fracture. SURGEON: Dr. Vanessa Brown. SOFTWARE SUPPORT REPRESENTATIVE: Chidi oL ANESTHESIA General. ESTIMATED BLOOD LOSS: 100 cc. COMPLICATIONS: None. IMPLANTS USED: Synthes. JUSTIFICATION FOR THE PROCEDURE: This patient is a 62-year-old male who fell from a tree sustaining a left comminuted intertrochanteric femur fracture as well as left-sided pelvic rami fractures. He was taken to the [facility] Emergency Room. Orthopedic surgery was consulted. The patient was counselled as to the risks, benefits and alternatives to the above-named proposed surgical procedure and did wish to proceed with surgery. DESCRIPTION OF THE PROCEDURE IN DETAIL: Written consent was obtained. The patient was identified by name and taken to the operating room and placed in the supine position. General endotracheal anesthesia was administered as well as 2 grams of IV Ancef and 1 gram of IV Vancomycin. The left foot was placed in a padded traction boot. The right leg was placed in a padded well-leg askew. All bony prominences and pressure points were well-padded. The left hip and left lower extremity were prepped and draped using isopropyl alcohol, Hibiclens solution and Chloraprep solution. After a time out was performed, a longitudinal incision was made over the lateral aspect of the left hip. The fascial layer was incised. The guidewire was used to gain entrance into the intramedullary canal of the femur. This was followed by a cannulated entry reamer. Subsequently a Synthes trochanteric femoral nail was inserted into the intramedullary canal of the femur. The 130 degree locking jig was used to place a guide pin centered into the femoral head on the AP and lateral fluoroscopic projections. This was followed by placement of a 110 mm spiral blade. The top locking screw was secured to create a single sliding construct. Distally the locking jig was used to place a single lateral to medial transverse static locking screw. Fluoroscopic imaging again confirmed hardware placement and fracture reduction. The surgical wound was thoroughly irrigated with sterile saline solution. Fascial layer was closed with #1 Vicryl suture, the subcutaneous layer with 2-0 Vicryl suture. The skin was closed with Dermabond. Sterile dressing applied. The patient tolerated the procedure well. No intraoperative complications were noted. NOTE Dereck Urban, physician assistant vice president certified was present during the entire procedure to include patient positioning and the procedure itself. The medical necessity of a physician assistant vice president was indicated in this case due to the complexity of the procedure itself. He assisted with appropriate manipulation of the leg and also retraction of muscle, tendon, bone and neurovascular structures. He assisted with preparation of bone and also implantation of the prosthetic replacement. MD SHIRLEY Goss/TEZ /6:31 PM /1:18 PM
--- NOTE | 2017-09-23 14:52 | PD.CONS ---
HPI Service [facility] Consult Requested By Dr. Cat Reason for Consult Assist with medical management and counseling for tobacco abuse. elevation of WBCs Abnormal imaging results Primary Care Physician Unknown Diagnoses: History of Present Illness 62-year-old white male with no past history was brought in as a TRAUMA ALERT after he sustained a fall accidentally from a tree 10 feet above the ground sustaining a left hip fracture and left pubic ramus fracture in which he underwent a ORIF with Dr. Soares orthopedic surgery on September. He states that he did not lose consciousness from the fall. Prior to the fall, he has been healthy with no symptoms of fatigue, recent weight loss, appetite changes, joint pain nor muscle aches. Review of Systems Constitutional: DENIES: Fatigue, Fever, Chills, Change in appetite Endocrine: DENIES: Heat/cold intolerance Eyes: DENIES: Blurred vision, Eye pain, Vision loss Ears, nose, mouth, throat: DENIES: Hearing loss, Nasal discharge, Throat pain, Ear Pain, Sinus Pain Respiratory: DENIES: Cough, Shortness of breath Cardiovascular: DENIES: Chest pain, Palpitations, Dyspnea on Exertion, Lower Extremity Edema Gastrointestinal: DENIES: Abdominal pain, Black stools, Bloody stools, Constipation, Diarrhea, Nausea, Vomiting Musculoskeletal: DENIES: Joint pain, Muscle aches, Stiffness Integumentary: DENIES: Rash Hematologic/lymphatic: DENIES: Bruising, Lymphadenopathy Immunologic/allergic: DENIES: Eczema Neurologic: DENIES: Headache, Localized weakness, Paresthesias Psychiatric: DENIES: Anxiety, Depression, Suicidal Ideation Except as stated in HPI: all other systems reviewed are Neg Past Family Social History Allergies: Coded Allergies: codeine (Verified Allergy, Severe, violently ill, 09/22/17) Past Medical History None Past Surgical History None Reported Medications None Family History Father had prostate cancer Social History Smokes half a pack of cigarettes per day does not drink alcohol use other drugs. Physical Exam Vital Signs Vital Signs Date Time Temp Pulse Resp B/P (MAP) Pulse Ox O2 Delivery O2 Flow Rate FiO2 09/23/17 09:38 96 Nasal Cannula 2.00 09/23/17 08:00 97.3 66 16 135/68 (90) 96 09/23/17 04:20 96.7 58 18 107/68 (81) 96 09/23/17 00:39 94 09/23/17 00:10 96.6 62 18 115/69 (84) 94 09/22/17 20:46 96.9 56 18 116/74 (88) 97 09/22/17 20:30 97.7 63 16 121/80 (94) 98 Nasal Cannula 2 09/22/17 20:15 61 17 117/81 (93) 97 Nasal Cannula 2 09/22/17 20:00 56 24 125/74 (91) 98 Nasal Cannula 2 09/22/17 19:45 59 24 141/80 (100) 99 Nasal Cannula 2 09/22/17 19:30 58 14 134/80 (98) 99 Nasal Cannula 2 09/22/17 19:15 60 12 129/78 (95) 98 Nasal Cannula 2 09/22/17 19:00 64 12 145/90 (108) 99 Nasal Cannula 2 09/22/17 18:51 97.8 78 14 145/85 (105) 99 Nasal Cannula 2 09/22/17 16:00 96.9 60 18 131/74 (93) 98 09/22/17 14:55 Physical Exam GENERAL: This is a well-nourished, well-developed patient, in no apparent distress. SKIN: No rashes, ecchymoses or lesions. Cool and dry. HEAD: Atraumatic. Normocephalic. No temporal or scalp tenderness. EYES: Pupils equal round and reactive. Extraocular motions intact. No scleral icterus. No injection or drainage. ENT: Nose without bleeding, purulent drainage or septal hematoma. Throat without erythema, tonsillar hypertrophy or exudate. Uvula midline. Airway patent. NECK: Trachea midline. No JVD or significant lymphadenopathy. Supple, nontender , no meningeal signs. Exam in the axillary area showed palpable lymphadenopathy CARDIOVASCULAR: Regular rate and rhythm without murmurs, gallops, or rubs. RESPIRATORY: Clear to auscultation. Breath sounds equal bilaterally. No wheezes , rales, or rhonchi. GASTROINTESTINAL: Abdomen soft, non-tender, nondistended. No guarding. Normoactive bowel sounds MUSCULOSKELETAL: Extremities without clubbing, cyanosis, or edema. Left hip bandage clean dry intact NEUROLOGICAL: Awake and alert to person place and time and situation. Cranial nerves II through XII intact. Motor and sensory grossly within normal limits. Five out of 5 muscle strength in all muscle groups. Normal speech. Laboratory Laboratory Tests Test 09/23/17 03:25 White Blood Count 12.2 Red Blood Count 4.09 Hemoglobin 11.7 Hematocrit 35.0 Mean Corpuscular Volume 85.6 Mean Corpuscular Hemoglobin 28.6 Mean Corpuscular Hemoglobin Concent 33.5 Red Cell Distribution Width 15.3 Platelet Count 183 Mean Platelet Volume 8.0 Neutrophils (%) (Auto) 83.2 Lymphocytes (%) (Auto) 7.7 Monocytes (%) (Auto) 8.9 Eosinophils (%) (Auto) 0.0 Basophils (%) (Auto) 0.2 Neutrophils # (Auto) 10.2 Lymphocytes # (Auto) 0.9 Monocytes # (Auto) 1.1 Eosinophils # (Auto) 0.0 Basophils # (Auto) 0.0 CBC Comment DIFF FINAL Differential Comment Blood Urea Nitrogen 12 Creatinine 0.70 Random Glucose 146 Calcium Level 8.3 Sodium Level 137 Potassium Level 3.9 Chloride Level 104 Carbon Dioxide Level 26.2 Anion Gap 7 Estimat Glomerular Filtration Rate 97 Result Diagram: 09/23/175 09/23/17 0325 Imaging Last Impressions Chest X-Ray 09/23/17 0600 Signed Impressions: Service Date/Time: Saturday, September 23, 2017 07:43 - CONCLUSION: No acute disease. Hong Damian MD Pelvis X-Ray 09/22/17 1130 Signed Impressions: Service Date/Time: September 11:30 - CONCLUSION: Nondisplaced fractures suspected involving the pelvis as detailed above. Consider CT to further evaluate. Yaniv Alvarez Jr., MD Head CT 09/22/17 113 Signed Impressions: Service Date/Time: September 11:42 - CONCLUSION: 1. No acute hemorrhage or mass effect. 2. Remote postsurgical changes with screw-plate fixation devices anterior maxilla. There is an apparent old left nasal bone fracture. Lalo Danielson MD Chest CT 09/22/17 1130 Signed Impressions: Service Date/Time: September 11:50 - CONCLUSION: 1. Enlarged bilateral axillary adenopathy and adenopathy in the upper abdomen concerning for lymphoma/leukemia versus metastatic disease. 2. No acute thoracic injury. 3. Large hiatal hernia. 4. Right lower lateral rib fracture appear subacute to chronic. Hong Damian MD Cervical Spine CT 09/22/17 1130 Signed Impressions: Service Date/Time: September 11:44 - CONCLUSION: 1. No fracture or dislocation. 2. Mild degenerative changes. Yaniv Alvarez Jr., MD Abdomen/Pelvis CT 09/22/17 1130 Signed Impressions: Service Date/Time: September 11:48 - CONCLUSION: 1. Acute fractures involving the left ischium, left inferior pubic ramus, and left intertrochanteric hip with small left pelvic hematoma. 2. Retroperitoneal adenopathy worrisome for a myeloproliferative disorder. 3. Tiny low-density lesions involving the liver likely related to cysts. Yaniv Alvarez Jr., MD Hip X-Ray 09/22/17 0000 Signed Impressions: Service Date/Time: September 18:15 - CONCLUSION: ORIF of left proximal femur fracture with hardware in good position. Steve Teague MD Femur X-Ray 09/22/17 0000 Signed Impressions: Service Date/Time: September 11:30 - CONCLUSION: 1. Comminuted left femoral intertrochanteric fracture. 2. Nondisplaced left inferior pubic ramus fracture. Vaughn Beltre MD Assessment and Plan Assessment and Plan 1. Status post traumatic fall with left hip fracture and left pubic ramus fracture status post op day #1 for left troch nail- continue postoperative care , pain control and physical therapy per orthopedic surgery 2. Abnormal CT of the chest and abdomen with findings of Enlarged bilateral axillary adenopathy and adenopathy in the upper abdomen concerning for lymphoma/ leukemia versus metastatic disease. -Patient has a insignificant past history with no recent abnormal review of systems symptoms. At this time, will obtain consultation with hematology to also review these films for further recommendations and work-up for lymphoma. 3. Tobacco abuse- cessation counseling 4. DVT prophylaxis- Rosalina Marsh MD Sep 23, 2017 14:52
[2017-09-23] MEDS: ENOXAPARIN SODIUM 40 MG/0.4 ML SYRINGE SQ SCH (17:37)
--- NOTE | 2017-09-23 19:01 | MB ---
cc: SHARI SANDOVAL M.D. DATE OF CONSULTATION: 09/23/2017. REASON FOR CONSULTATION: Consult requested by hospitalist for evaluation of lymphadenopathy. HISTORY OF PRESENT ILLNESS: This is a 62-year-old very pleasant white male. He is from [place]; however, he spends the winter in [place]. He was working on a tree ten feet above the ground and fell accidentally and broke his left hip and left pubic ramus. He was brought into the hospital as a trauma alert and underwent open reduction internal fixation with orthopedics, Dr. Soares, yesterday. The patient did not lose any consciousness. He had a CT scan of the chest, abdomen and pelvis which showed bilateral axillary lymphadenopathy and retroperitoneal lymphadenopathy. I have been asked to see the patient for further evaluation. The patient is unaware of any lymphadenopathy. He denies any fever, night sweats or weight loss. He has no medical problems that he knows of. The rest of the review of systems is negative. PAST MEDICAL HISTORY: None PAST SURGICAL HISTORY: None ALLERGIES: CODEINE. MEDICATIONS PRIOR TO COMING TO THE HOSPITAL: None. FAMILY HISTORY: Family history is significant for prostate cancer. SOCIAL HISTORY: The patient smokes cigarettes half-pack a day but he does not drink alcohol. PHYSICAL EXAMINATION: GENERAL: This is a well-developed, well-nourished white male in no apparent distress. VITAL SIGNS: Temperature 97.3, heart rate is 84, blood pressure 130/72, 02 saturation is 97%. HEAD, EYES, EARS, NOSE, THROAT: Pupils equal, round and reactive to light and accommodation. Extraocular muscles intact. Anicteric. No oral lesions are noted. NECK: There is no cervical lymphadenopathy noted but he does have palpable bilateral axillary lymphadenopathy. LUNGS: Clear. No wheezes, rales or rhonchi. HEART: Regular rate and rhythm. ABDOMEN: Abdomen soft and nontender. No hepatosplenomegaly. EXTREMITIES: No pedal edema. NEUROLOGIC: Awake, alert, oriented times three. SKIN: No significant lesions noted. ASSESSMENT: 1. Significant bilateral axillary and retroperitoneal lymphadenopathy. This is most likely consistent with lymphoma until proven otherwise. 2. Traumatic left hip fracture status post fall from a tree ten feet above the ground. PLAN: I have reviewed his available records and I have discussed with the patient regarding the CT scan of the chest findings which shows bilateral axillary lymph adenopathy; however, there is no mediastinal or hilar lymphadenopathy noted. We also discussed the CT scan of the abdomen and pelvis findings which showed retroperitoneal lymphadenopathy. The largest lymph node is 3.1 x 2.3 cm. He also has acute fractures involving the left ischium and left inferior pubic ramus and a left intertrochanteric hip with small left pelvic hematoma. He also has an hepatic cyst. We also reviewed his blood test results. The CBC yesterday showed white count 11.7, hemoglobin 13.6, platelet count is 262,000. Differential count is normal except the absolute neutrophil count is mildly elevated at 8.3. I discussed with him that he has significant lymphadenopathy which I believe is most likely due to lymphoma. He does not have any B symptoms of lymphoma. He does not have any fever, night sweats or weight loss. We discussed the workup for the lymphadenopathy. Biopsy can be done as an outpatient or inpatient. The patient preferred to have the biopsy done while he is in the hospital. Therefore I will consult general surgery for biopsy of the palpable axillary lymph node for tissue diagnosis. I will also add HIV test and LDH for further workup of the lymphoma. Thank you for asking my opinion MD CHESTER Olivo/TEZ /6:14 PM /6:41 PM MTDOleg
--- NOTE | 2017-09-23 19:02 | EKG ---
Date Performed: 09/22/2017 Time Performed: 17:18:43 PTAGE: 89 years EKG: SINUS BRADYCARDIA BORDERLINE ECG INTERPRETATION BASED ON A DEFAULT AGE OF 40 YEARS NO PREVIOUS TRACING DOCTOR: Nav Prado Interpretating Date/Time 09/23/2017 19:01:49
[2017-09-23] MEDS: SODIUM CHLORIDE 0.9% FLUSH 10 ML FLUSH IV FLUSH PRN (20:05)
[2017-09-23] MEDS: REMOVE OLD LIDOCAINE PATCH T-DERMAL SCH (20:08)
[2017-09-24 00:20] VITALS: BP 116/66; PULSE 65; RESP 16; TEMP 98.9; O2SAT 92
[2017-09-24] MEDS: ACETAMINOPHEN/HYDROcodone 325 MG/7.5 MG TAB PO PRN ×5 (00:58→22:47)
--- NOTE | 2017-09-24 05:18 | RADRPT ---
EXAM DATE/TIME: 09/24/2017 04:47 [facility] COMPARISON: CT THORAX W CONTRAST, September 22, 2017, 11:50. CHEST SINGLE AP, September 23, 2017, 7:43. INDICATIONS : Follow up trauma from fall. MEDICAL HISTORY : None. SURGICAL HISTORY : Left hip surgery. ENCOUNTER: Initial ACUITY: 3 days PAIN SCORE: 0/10 LOCATION: Bilateral chest FINDINGS: A single view of the chest demonstrates the lungs to be symmetrically aerated without evidence of mas s, infiltrate or effusion. The cardiomediastinal contours are unremarkable. Osseous structures are intact. Large hiatal hernia. CONCLUSION: No significant change has occurred. Kendall Borges MD on September 24, 2017 at 5:15 Board Certified Radiologist. This report was verified electronically.
[2017-09-24 05:39] LABS: HEMOGLOBIN 10.6 GM/DL (13.0-17.0); MEAN CELL VOLUME 84.8 FL (80.0-100.0); MEAN CORPUSCULAR HEMOGLOBIN 29.1 PG (27.0-34.0); MEAN CORPUSCULAR HGB CONC 34.3 % (32.0-36.0); PLATELET COUNT 159 TH/MM3 (150-450); RED BLOOD COUNT 3.66 MIL/MM3 (4.50-5.90); RED CELL DISTRIBUTION WIDTH 15.7 % (11.6-17.2); WHITE BLOOD COUNT 8.7 TH/MM3 (4.0-11.0)
[2017-09-24 05:48] LABS: BICARBONATE 29.8 MEQ/L (21.0-32.0); CREATININE 0.78 MG/DL (0.60-1.30)
[2017-09-24] MEDS: METHOCARBAMOL 500 MG TAB PO SCH ×2 (07:40→16:22)
[2017-09-24] MEDS: LIDOCAINE HCL 5% PATCH T-DERMAL SCH (07:44)
[2017-09-24] MEDS: MULTIVITAMINS/MINERALS THERAPEUTIC TAB PO SCH (07:44)
[2017-09-24] MEDS: FAMOTIDINE 20 MG TAB PO SCH ×2 (07:45→20:12)
[2017-09-24] MEDS: DOCUSATE SODIUM 50 MG/SENNA 8.6 MG TAB PO SCH ×2 (07:45→20:12)
[2017-09-24] MEDS: MAGNESIUM HYDROXIDE SUSP 30 ML CUP PO SCH ×2 (07:46→20:12)
[2017-09-24] MEDS: DEXT 5%-NACL 0.45% 1000 ML INJ 1,000 ML IV SCH ×3 (07:46→22:42)
[2017-09-24 08:00] VITALS: BP 117/59; PULSE 67; RESP 16; TEMP 97; O2SAT 94
--- NOTE | 2017-09-24 08:16 | HHI.PR ---
Subjective Subjective Notes PTD: 2 Pt lying in bed. No distress noted. "I'm feeling rough." "I'm trying not to take those crazy pain meds. They make me nauseous and crap. " [facility] [place] "I got CT scans up and down about a year ago, and they took something off my back 2 years ago." Objective Vitals/I&O Vital Signs Date Time Temp Pulse Resp B/P (MAP) Pulse Ox O2 Delivery O2 Flow Rate FiO2 09/24/17 01:58 20 09/24/17 00:20 98.9 65 116/66 (83) 92 09/23/17 19:51 21 09/23/17 09:38 Nasal Cannula 2.00 Labs Laboratory Tests Test 09/24/17 04:36 White Blood Count 8.7 Red Blood Count 3.66 Hemoglobin 10.6 Hematocrit 31.0 Mean Corpuscular Volume 84.8 Mean Corpuscular Hemoglobin 29.1 Mean Corpuscular Hemoglobin Concent 34.3 Red Cell Distribution Width 15.7 Platelet Count 159 Mean Platelet Volume 8.0 Blood Urea Nitrogen 10 Creatinine 0.78 Random Glucose 101 Calcium Level 8.0 Sodium Level 139 Potassium Level 3.6 Chloride Level 106 Carbon Dioxide Level 29.8 Anion Gap 3 Estimat Glomerular Filtration Rate 86 Radiology Last 24 hours Impressions Chest X-Ray 09/24/17 0600 Signed Impressions: Service Date/Time: Sunday, September 24, 2017 04:47 - CONCLUSION: No significant change has occurred. Kendall Borges MD Narrative Exam GENERAL: This is a 62-year-old male lying in bed. No distress noted. SKIN: Warm and dry. HEAD: Atraumatic. Normocephalic. EYES: PERRLA ENT: No nasal bleeding or discharge. Mucous membranes pink and moist. NECK: Trachea midline. No JVD. CARDIOVASCULAR: Regular rate and rhythm. RESPIRATORY: No accessory muscle use. Lungs are clear to auscultation. Breath sounds equal bilaterally. No distress or dyspnea. GASTROINTESTINAL: BS + x 4 quads. Abdomen soft, non-tender, nondistended. MUSCULOSKELETAL: Extremities without cyanosis, or edema. + peripheral pulses x 4 extremities. Warm with good capillary refill and sensation. MAEW. NEUROLOGICAL: Awake and alert. Normal speech and pattern. A/P Problem List: (1) Fracture, intertrochanteric, left femur ICD Codes: S72.142A - Displaced intertrochanteric fracture of left femur, initial encounter for closed fracture Status: Acute (2) Fracture of left ischium ICD Codes: S32.602A - Unspecified fracture of left ischium, initial encounter for closed fracture Status: Acute (3) Pelvic hematoma in male ICD Codes: N50.1 - Vascular disorders of male genital organs Status: Acute (4) Fracture of left inferior pubic ramus ICD Codes: S32.592A - Other specified fracture of left pubis, initial encounter for closed fracture Status: Acute Assessment and Plan [place]: This is a 62-year-old male who sustained a fall. He fell from a tree, approximately 10 feet. He landed on his left hip. No LOC. INJURIES: RIGHT rib fx (sub acute vs. chronic) LEFT ischium fx LEFT inferior pubic ramus fx (non-op) LEFT femoral intertrochanter fx Small pelvic hematoma Procedures: 09/22: LEFT troch nail Consults: Orthopedics. Hospitalist. Hematology. Case management. Diet: Regular diet. Tolerating po diet. Encourage good po intake with each meal. Pulmonary: Encourage good pulmonary toileting. IS and acapella at bedside and pt encouraged to use. Rationale for use explained to patient, and verbalized understanding. PAIN Management: [place] 7.5-15 mg q 4h. Morphine 5 mg q 3h. Robaxin 500 mg q 8h. Lidoderm patch. OFIRMEV q 6 x 24h. Activity: OOB. PT and OT ordered. (TTWB LLE) GI prophylaxis: Pepcid 20 mg BID po. Bowel regimen: Ileana - colace and MOM. LBM: 0 DVT prophylaxis: Mechanical VTE with SCDs. Chemical management with Lovenox 40 QD SQ. DC Planning: Case management consulted for assistance with final discharge disposition. PT recommends Rehab vs. HHC PT. Pt states that he lives alone, however he could get a friend to stay with him while he recuperates. Emotional support provided to patient and family at bedside and plan of care discussed. Discussed with RN at bedside. Discussed pt condition and plan of care with collaborating trauma surgeon. Patient is hemodynamically stable and being managed on the med/surg floor. The trauma team will round each day, and evaluate plan of care on a daily basis. RIGHT rib fx (sub acute vs. chronic) O2 as needed Aggressive pulmonary toileting Chest x-rays as needed Pain management PT and OT ordered Encourage out of bed LEFT ischium fx LEFT inferior pubic ramus fx (non-op) LEFT femoral intertrochanter fx Small pelvic hematoma Orthopedics consulted and assisting in management and care 09/22: Left troch nail Pain management PT and OT ordered TTWB LLE Encourage out of bed Lovenox for DVT prophylaxis Antibiotics per orthopedics Dressings per orthopedics H&H stable *Enlarged bilateral axillary adenopathy *Adenopathy in upper abdomen concerning for lymphoma/leukemia Hospitalist following pt Hematology consulted and assisting in management and care Dr. Betancourt is happy to assist with plan for lymph node biopsy Problem Qualifiers (1) Fracture, intertrochanteric, left femur: Qualified Codes: S72.142A - Displaced intertrochanteric fracture of left femur , initial encounter for closed fracture (2) Fracture of left ischium: (3) Fracture of left inferior pubic ramus: Qualified Codes: S32.592A - Other specified fracture of left pubis, initial encounter for closed fracture Danielle Ames Sep 24, 2017 08:16
[2017-09-24 08:33] VITALS: O2SAT 93
--- NOTE | 2017-09-24 09:35 | PD.ORT.PN ---
Subjective Post Op Day #: 2 Subjective Remarks The patient is resting in bed with moderate pain to the left hip and pelvis. Denies tingling and numbness in BLEs. Objective Vitals Vital Signs Date Time Temp Pulse Resp B/P (MAP) Pulse Ox O2 Delivery O2 Flow Rate FiO2 09/24/17 08:33 93 21 09/24/17 01:58 20 09/24/17 00:20 98.9 65 16 116/66 (83) 92 09/23/17 23:02 20 09/23/17 20:20 98.4 68 17 111/66 (81) 95 09/23/17 19:51 97 21 09/23/17 12:00 97.3 84 16 130/72 (91) 97 09/23/17 09:38 96 Nasal Cannula 2.00 I/O 09/23/17 09/23/17 09/23/17 09/24/17 09/24/17 09/24/17 07:00 15:00 23:00 07:00 15:00 23:00 Intake Total 440 ml 200 ml 2740 ml 440 ml Output Total 300 ml 1150 ml 500 ml Balance 140 ml 200 ml 1590 ml -60 ml Intake Oral 240 ml 1080 ml 240 ml IV Total 200 ml 200 ml 1660 ml 200 ml Output Urine Total 300 ml 1150 ml 500 ml # Voids 1 # Bowel Movements 0 0 0 Result Diagram: 09/24/17 0436 09/24/17 0436 Imaging Last 24 hours Impressions Chest X-Ray 09/23/17 0600 Signed Impressions: Service Date/Time: Saturday, September 23, 2017 07:43 - CONCLUSION: No acute disease. Hong Damian MD Pelvis X-Ray 09/22/171129 Signed Impressions: Service Date/Time: September 11:30 - CONCLUSION: Nondisplaced fractures suspected involving the pelvis as detailed above. Consider CT to further evaluate. Yaniv Alvarez Jr., MD Head CT 09/22/171129 Signed Impressions: Service Date/Time: September 11:42 - CONCLUSION: 1. No acute hemorrhage or mass effect. 2. Remote postsurgical changes with screw-plate fixation devices anterior maxilla. There is an apparent old left nasal bone fracture. Lalo Danielson MD Chest X-Ray 09/22/171129 Signed Impressions: Service Date/Time: September 11:30 - CONCLUSION: 1. Negative portable chest status post trauma. Vaughn Beltre MD Chest CT 09/22/171129 Signed Impressions: Service Date/Time: September 11:50 - CONCLUSION: 1. Enlarged bilateral axillary adenopathy and adenopathy in the upper abdomen concerning for lymphoma/leukemia versus metastatic disease. 2. No acute thoracic injury. 3. Large hiatal hernia. 4. Right lower lateral rib fracture appear subacute to chronic. Hong Damian MD Cervical Spine CT 09/22/171129 Signed Impressions: Service Date/Time: September 11:44 - CONCLUSION: 1. No fracture or dislocation. 2. Mild degenerative changes. Yaniv Alvarez Jr., MD Abdomen/Pelvis CT 09/22/171129 Signed Impressions: Service Date/Time: September 11:48 - CONCLUSION: 1. Acute fractures involving the left ischium, left inferior pubic ramus, and left intertrochanteric hip with small left pelvic hematoma. 2. Retroperitoneal adenopathy worrisome for a myeloproliferative disorder. 3. Tiny low-density lesions involving the liver likely related to cysts. Yaniv Alvarez Jr., MD Objective Remarks in bed, nad dressing c/d/i to the left hip thigh swelling mild, soft neg homans, calf is soft and nontender. nvi Assessment & Plan Ortho Post Op Day #: 2 Problem List: Assessment and Plan s/p L Troch Nail POD2 pelvic rami fxs TTWB daily dressing changes lovenox, d/c on [id number] d/c planning rx in chart f/up dr. almanza 2 weeks Julio Stewart Sep 24, 2017 09:35
--- NOTE | 2017-09-24 10:57 | HHI.PR ---
Subjective Subjective Notes Elderly patient who fell out of a tree and on workup was found to have a bulky retroperitoneal lymphadenopathy as well as bilateral axillary lymph nodes in packets I evaluated the patient and admitted him and oncology has been consult for their expert opinion Agree with the working diagnosis of a lymphoma despite the fact the patient has no symptoms. We will go ahead with axillary lymph node biopsy tomorrow Thanks J Objective Vitals/I&O Vital Signs Date Time Temp Pulse Resp B/P (MAP) Pulse Ox O2 Delivery O2 Flow Rate FiO2 09/24/17 08:33 93 21 09/24/17 08:00 97.0 67 16 117/59 (78) 09/23/17 09:38 Nasal Cannula 2.00 Labs Laboratory Tests Test 09/24/17 04:36 White Blood Count 8.7 Red Blood Count 3.66 Hemoglobin 10.6 Hematocrit 31.0 Mean Corpuscular Volume 84.8 Mean Corpuscular Hemoglobin 29.1 Mean Corpuscular Hemoglobin Concent 34.3 Red Cell Distribution Width 15.7 Platelet Count 159 Mean Platelet Volume 8.0 Blood Urea Nitrogen 10 Creatinine 0.78 Random Glucose 101 Calcium Level 8.0 Sodium Level 139 Potassium Level 3.6 Chloride Level 106 Carbon Dioxide Level 29.8 Anion Gap 3 Estimat Glomerular Filtration Rate 86 Radiology Last 24 hours Impressions Chest X-Ray 09/24/17 0600 Signed Impressions: Service Date/Time: Sunday, September 24, 2017 04:47 - CONCLUSION: No significant change has occurred. Kendall Borges MD A/P Problem List: (1) Fracture, intertrochanteric, left femur ICD Codes: S72.142A - Displaced intertrochanteric fracture of left femur, initial encounter for closed fracture Status: Acute (2) Fracture of left ischium ICD Codes: S32.602A - Unspecified fracture of left ischium, initial encounter for closed fracture Status: Acute (3) Pelvic hematoma in male ICD Codes: N50.1 - Vascular disorders of male genital organs Status: Acute (4) Fracture of left inferior pubic ramus ICD Codes: S32.592A - Other specified fracture of left pubis, initial encounter for closed fracture Status: Acute Problem Qualifiers (1) Fracture, intertrochanteric, left femur: Qualified Codes: S72.142A - Displaced intertrochanteric fracture of left femur , initial encounter for closed fracture (2) Fracture of left ischium: (3) Fracture of left inferior pubic ramus: Qualified Codes: S32.592A - Other specified fracture of left pubis, initial encounter for closed fracture Soraya Cat MD Sep 24, 2017 10:57
[2017-09-24] MEDS ORDERED: ceFAZolin 2 GM PREMIX 50 ML IV SCH (11:00)
[2017-09-24 12:00] VITALS: BP 126/65; PULSE 76; RESP 16; TEMP 98.7; O2SAT 95
--- NOTE | 2017-09-24 13:28 | PD.ONC.PN ---
Subjective Subjective Remarks Afebrile overnight. Patient resting in room in nad. No complaints offered. Objective Data Date Time Temp Pulse Resp B/P (MAP) Pulse Ox O2 Delivery O2 Flow Rate FiO2 09/24/17 08:33 93 21 09/24/17 08:00 97.0 67 16 117/59 (78) 94 09/24/17 01:58 20 09/24/17 00:20 98.9 65 16 116/66 (83) 92 09/23/17 23:02 20 09/23/17 20:20 98.4 68 17 111/66 (81) 95 09/23/17 19:51 97 21 09/24/17 09/24/17 09/24/17 07:00 15:00 23:00 Intake Total 440 ml Output Total 500 ml Balance -60 ml Result Diagram: 09/24/17 0436 09/24/17 0436 Laboratory Results Laboratory Tests Test 09/24/17 04:36 White Blood Count 8.7 TH/MM3 Red Blood Count 3.66 MIL/MM3 Hemoglobin 10.6 GM/DL Hematocrit 31.0 % Mean Corpuscular Volume 84.8 FL Mean Corpuscular Hemoglobin 29.1 PG Mean Corpuscular Hemoglobin Concent 34.3 % Red Cell Distribution Width 15.7 % Platelet Count 159 TH/MM3 Mean Platelet Volume 8.0 FL Blood Urea Nitrogen 10 MG/DL Creatinine 0.78 MG/DL Random Glucose 101 MG/DL Calcium Level 8.0 MG/DL Sodium Level 139 MEQ/L Potassium Level 3.6 MEQ/L Chloride Level 106 MEQ/L Carbon Dioxide Level 29.8 MEQ/L Anion Gap 3 MEQ/L Estimat Glomerular Filtration Rate 86 ML/MIN Imaging Studies Last 24 hours Impressions Chest X-Ray 09/24/17 0600 Signed Impressions: Service Date/Time: Sunday, September 24, 2017 04:47 - CONCLUSION: No significant change has occurred. Kendall Borges MD Administered Medications Medications (Trade) Dose Ordered Sig/Fiona Route PRN Reason Start Time Stop Time Status Last Admin Dose Admin Sodium Chloride (NS Flush) 2 ml UNSCH PRN IV FLUSH FLUSH AFTER USING IV ACCESS 09/22/17 15:30 09/23/17 20:05 Magnesium Hydroxide (Milk Of Magnesia Liq) 30 ml BID PO 09/22/17 21:00 09/24/17 07:46 Famotidine (Pepcid) 20 mg BID PO 09/22/17 21:00 09/24/17 07:45 Methocarbamol (Robaxin) 500 mg Q8H PO 09/22/17 16:00 09/24/17 07:40 Lidocaine HCl (Lidoderm 5% Patch.12 Hr) 1 patch DAILY T-DERMAL 09/22/17 15:30 09/23/17 08:59 Miscellaneous Information 1 Q24H T-DERMAL 09/22/17 21:00 09/23/17 20:08 Dextrose/Sodium Chloride 1,000 ml @ 100 mls/hr Q10H IV 09/22/17 17:35 09/23/17 22:33 Enoxaparin Sodium (Lovenox Inj) 40 mg Q24H SQ 09/23/17 18:00 10/02/17 18:01 09/23/17 17:37 Senna/Docusate Sodium (Ileana-Colace) 1 tab BID PO 09/22/17 21:00 09/24/17 07:45 Cefazolin Sodium 1000 mg/Sodium Chloride 100 ml @ 200 mls/hr Q8H IV 09/23/17 02:00 09/24/17 07:43 Acetaminophen/ Hydrocodone Bitart ([place] 7.5-325 Mg) 1 tab Q4H PRN PO PAIN SCALE 3 TO 5 09/22/17 17:45 09/24/17 10:32 Acetaminophen/ Hydrocodone Bitart ([place] 7.5-325 Mg) 2 tab Q6H PRN PO PAIN GREATER THAN/EQUAL TO 5 09/22/17 17:45 09/24/17 00:58 Morphine Sulfate (Morphine Inj) 5 mg Q3H PRN IV PUSH Pain after EGG PACKER discontinued 09/22/17 17:45 09/23/17 02:53 Ondansetron HCl (Zofran Inj) 4 mg Q4H PRN IVP NAUSEA OR VOMITING 09/22/17 17:45 09/23/17 06:44 Multivitamins/ Minerals Therapeutic (Theragran M Tab) 1 tab DAILY PO 09/23/17 09:00 09/24/17 07:44 Objective Remarks GENERAL: Well-nourished, well-developed patient. SKIN: Warm and dry. HEAD: Normocephalic. EYES: No scleral icterus. No injection or drainage. NECK: Supple, trachea midline. No JVD or lymphadenopathy. LYMPHATIC: No adenopathy. CARDIOVASCULAR: Regular rate and rhythm without murmurs. RESPIRATORY: Breath sounds equal bilaterally. No accessory muscle use. GASTROINTESTINAL: Abdomen soft, non-tender, nondistended. EXTREMITIES: No cyanosis, or edema. MUSCULOSKELETAL: Adequate muscle tone. NEUROLOGICAL: No obvious focal deficit. Awake, alert, and oriented x3. PSYCHIATRIC: Appropriate mood and affect; insight and judgment normal. Assessment/Plan Problem List: (1) Lymphadenopathy ICD Codes: R59.1 - Generalized enlarged lymph nodes Plan: 09/24: await w/u. axillary biopsy tomorrow via Dr. Betancourt. --most likely consistent with lymphoma until proven otherwise. --HIV pending --LDH elevated. --CT c/a/p: shows bilateral axillary lymph adenopathy + retroperitoneal LAD; however, there is no mediastinal or hilar lymphadenopathy noted. --no B symptoms, ie.e fever, night sweats or weight loss. (2) Fracture of left inferior pubic ramus ICD Codes: S32.592A - Other specified fracture of left pubis, initial encounter for closed fracture Status: Acute (3) Fracture, intertrochanteric, left femur ICD Codes: S72.142A - Displaced intertrochanteric fracture of left femur, initial encounter for closed fracture Status: Acute Assessment 62y/o male admitted s/p left hip fracture. hematology consulted for incidentally found lymphadenopathy. Attending Statement The exam, history, and the medical decision-making described in the above note were completed with the assistance of the mid-level provider. I reviewed and agree with the findings presented. I attest that I had a [id number] encounter with the patient on the same day, and personally performed and documented my assessment and findings in the medical record. Denies any complain Dr Betancourt will do excisional LN Bx tomorrow. working Dx is lymphoma Problem Qualifiers (1) Fracture of left inferior pubic ramus: Qualified Codes: S32.592A - Other specified fracture of left pubis, initial encounter for closed fracture (2) Fracture, intertrochanteric, left femur: Qualified Codes: S72.142A - Displaced intertrochanteric fracture of left femur , initial encounter for closed fracture Yuly Rondon Sep 24, 2017 13:28 Eric Torres MD Sep 24, 2017 23:24
--- NOTE | 2017-09-24 15:09 | HHI.PR ---
Subjective Remarks 62-year-old white male with no past history was brought in as a TRAUMA ALERT after he sustained a fall accidentally from a tree 10 feet above the ground sustaining a left hip fracture and left pubic ramus fracture in which he underwent a ORIF with Dr. Soares orthopedic surgery on September. He states that he did not lose consciousness from the fall. Prior to the fall, he has been healthy with no symptoms of fatigue, recent weight loss, appetite changes, joint pain nor muscle aches. 2-3 PATIENT IS SCHEDULED TO HAVE BIOPSIES OF LYMPHADENOPATHY TOMORROW PER RN STATES HE WORKED WITH PHYSICAL THERAPY TODAY AM LABS Objective Vitals Vital Signs Date Time Temp Pulse Resp B/P (MAP) Pulse Ox O2 Delivery O2 Flow Rate FiO2 09/24/17 08:33 93 21 09/24/17 08:00 97.0 67 16 117/59 (78) 94 09/24/17 01:58 20 09/24/17 00:20 98.9 65 16 116/66 (83) 92 09/23/17 23:02 20 09/23/17 20:20 98.4 68 17 111/66 (81) 95 09/23/17 19:51 97 21 I/O 09/23/17 09/23/17 09/23/17 09/24/17 09/24/17 09/24/17 07:00 15:00 23:00 07:00 15:00 23:00 Intake Total 440 ml 200 ml 2740 ml 440 ml Output Total 300 ml 1150 ml 500 ml Balance 140 ml 200 ml 1590 ml -60 ml Intake Oral 240 ml 1080 ml 240 ml IV Total 200 ml 200 ml 1660 ml 200 ml Output Urine Total 300 ml 1150 ml 500 ml # Voids 1 # Bowel Movements 0 0 0 Result Diagram: 09/24/17 0436 09/24/17 0436 Other Results Laboratory Tests Test 09/22/17 11:31 09/23/17 03:25 09/24/17 04:36 White Blood Count 11.7 TH/MM3 12.2 TH/MM3 8.7 TH/MM3 Red Blood Count 4.78 MIL/MM3 4.09 MIL/MM3 3.66 MIL/MM3 Hemoglobin 13.6 GM/DL 11.7 GM/DL 10.6 GM/DL Bedside Hemoglobin 13.3 G/DL Hematocrit 40.6 % 35.0 % 31.0 % Bedside Hematocrit 39.0 % Mean Corpuscular Volume 84.9 FL 85.6 FL 84.8 FL Mean Corpuscular Hemoglobin 28.3 PG 28.6 PG 29.1 PG Mean Corpuscular Hemoglobin Concent 33.4 % 33.5 % 34.3 % Red Cell Distribution Width 15.2 % 15.3 % 15.7 % Platelet Count 262 TH/MM3 183 TH/MM3 159 TH/MM3 Mean Platelet Volume 8.0 FL 8.0 FL 8.0 FL Neutrophils (%) (Auto) 70.9 % 83.2 % Lymphocytes (%) (Auto) 19.7 % 7.7 % Monocytes (%) (Auto) 8.0 % 8.9 % Eosinophils (%) (Auto) 0.8 % 0.0 % Basophils (%) (Auto) 0.6 % 0.2 % Neutrophils # (Auto) 8.3 TH/MM3 10.2 TH/MM3 Lymphocytes # (Auto) 2.3 TH/MM3 0.9 TH/MM3 Monocytes # (Auto) 0.9 TH/MM3 1.1 TH/MM3 Eosinophils # (Auto) 0.1 TH/MM3 0.0 TH/MM3 Basophils # (Auto) 0.1 TH/MM3 0.0 TH/MM3 CBC Comment DIFF FINAL DIFF FINAL Differential Comment Prothrombin Time 10.7 SEC Prothromb Time International Ratio 1.1 RATIO Activated Partial Thromboplast Time 22.7 SEC Bedside Sodium 141 MMOL/L Bedside Potassium 3.7 MMOL/L Bedside Chloride 102 MMOL/L Bedside Blood Urea Nitrogen 16 MG/DL Bedside Creatinine 1.0 MG/DL Bedside Glucose 146 MG/DL Blood Urea Nitrogen 12 MG/DL 10 MG/DL Creatinine 0.70 MG/DL 0.78 MG/DL Random Glucose 146 MG/DL 101 MG/DL Calcium Level 8.3 MG/DL 8.0 MG/DL Sodium Level 137 MEQ/L 139 MEQ/L Potassium Level 3.9 MEQ/L 3.6 MEQ/L Chloride Level 104 MEQ/L 106 MEQ/L Carbon Dioxide Level 26.2 MEQ/L 29.8 MEQ/L Anion Gap 7 MEQ/L 3 MEQ/L Estimat Glomerular Filtration Rate 97 ML/MIN 86 ML/MIN Lactate Dehydrogenase 421 U/L Imaging Last Impressions Chest X-Ray 09/24/17 0600 Signed Impressions: Service Date/Time: Sunday, September 24, 2017 04:47 - CONCLUSION: No significant change has occurred. Kendall Borges MD Pelvis X-Ray [id number]/22/[id number] Signed Impressions: Service Date/Time: September 11:30 - CONCLUSION: Nondisplaced fractures suspected involving the pelvis as detailed above. Consider CT to further evaluate. Yaniv Alvarez Jr., MD Head CT [id number]/22/171129 Signed Impressions: Service Date/Time: September 11:42 - CONCLUSION: 1. No acute hemorrhage or mass effect. 2. Remote postsurgical changes with screw-plate fixation devices anterior maxilla. There is an apparent old left nasal bone fracture. Lalo Danielson MD Chest CT [id number]/22/171129 Signed Impressions: Service Date/Time: September 11:50 - CONCLUSION: 1. Enlarged bilateral axillary adenopathy and adenopathy in the upper abdomen concerning for lymphoma/leukemia versus metastatic disease. 2. No acute thoracic injury. 3. Large hiatal hernia. 4. Right lower lateral rib fracture appear subacute to chronic. Hong Damian MD Cervical Spine CT [id number]/22/171129 Signed Impressions: Service Date/Time: September 11:44 - CONCLUSION: 1. No fracture or dislocation. 2. Mild degenerative changes. Yaniv Alvarez Jr., MD Abdomen/Pelvis CT [id number]/22/171129 Signed Impressions: Service Date/Time: September 11:48 - CONCLUSION: 1. Acute fractures involving the left ischium, left inferior pubic ramus, and left intertrochanteric hip with small left pelvic hematoma. 2. Retroperitoneal adenopathy worrisome for a myeloproliferative disorder. 3. Tiny low-density lesions involving the liver likely related to cysts. Yaniv Alvarez Jr., MD Hip X-Ray 09/22/17 0000 Signed Impressions: Service Date/Time: September 18:15 - CONCLUSION: ORIF of left proximal femur fracture with hardware in good position. Steve Teague MD Femur X-Ray 09/22/17 0000 Signed Impressions: Service Date/Time: September 11:30 - CONCLUSION: 1. Comminuted left femoral intertrochanteric fracture. 2. Nondisplaced left inferior pubic ramus fracture. Vaughn Beltre MD Objective Remarks GENERAL: This is a well-nourished, well-developed patient, in no apparent distress. SKIN: No rashes, ecchymoses or lesions. Cool and dry. HEAD: Atraumatic. Normocephalic. No temporal or scalp tenderness. EYES: Pupils equal round and reactive. Extraocular motions intact. No scleral icterus. No injection or drainage. ENT: Nose without bleeding, purulent drainage or septal hematoma. Throat without erythema, tonsillar hypertrophy or exudate. Uvula midline. Airway patent. NECK: Trachea midline. No JVD . Supple, nontender, no meningeal signs. Exam in the axillary area showed lymphadenopathy CARDIOVASCULAR: Regular rate and rhythm without murmurs, gallops, or rubs. S1, S2 NO S3 OR S4 RESPIRATORY: Clear to auscultation. Breath sounds equal bilaterally. No wheezes , rales, or rhonchi. GASTROINTESTINAL: Abdomen soft, non-tender, nondistended. No guarding. Normoactive bowel sounds MUSCULOSKELETAL: Extremities without clubbing, cyanosis, or edema. Left hip bandage clean dry intact NEUROLOGICAL: Awake and alert to person place and time and situation. Cranial nerves II through XII intact. Motor and sensory grossly within normal limits. Five out of 5 muscle strength in all muscle groups. Normal speech. Insight and judgment is good Mood and behaviors appropriate Procedures VANESSA SOARES DATE OF SURGERY: 09/22/2017 PREOPERATIVE DIAGNOSIS: Left intertrochanteric hip fracture. POSTOPERATIVE DIAGNOSIS: Left intertrochanteric hip fracture. OPERATIVE PROCEDURE PERFORMED: Trochanteric femoral nailing left intertrochanteric hip fracture. SURGEON: Dr. Vanessa Soares. SLEEVE SETTER SAFETY STITCH: Chidi Lo ANESTHESIA General. ESTIMATED BLOOD LOSS: 100 cc. COMPLICATIONS: None. IMPLANTS USED: Synthes. JUSTIFICATION FOR THE PROCEDURE: This patient is a 62-year-old male who fell from a tree sustaining a left comminuted intertrochanteric femur fracture as well as left-sided pelvic rami fractures. He was taken to the [facility] Emergency Room. Orthopedic surgery was consulted. The patient was counselled as to the risks, benefits and alternatives to the above-named proposed surgical procedure and did wish to proceed with surgery. DESCRIPTION OF THE PROCEDURE IN DETAIL: Written consent was obtained. The patient was identified by name and taken to the operating room and placed in the supine position. General endotracheal anesthesia was administered as well as 2 grams of IV Ancef and 1 gram of IV Vancomycin. The left foot was placed in a padded traction boot. The right leg was placed in a padded well-leg askew. All bony prominences and pressure points were well-padded. The left hip and left lower extremity were prepped and draped using isopropyl alcohol, Hibiclens solution and Chloraprep solution. After a time out was performed, a longitudinal incision was made over the lateral aspect of the left hip. The fascial layer was incised. The guidewire was used to gain entrance into the intramedullary canal of the femur. This was followed by a cannulated entry reamer. Subsequently a Synthes trochanteric femoral nail was inserted into the intramedullary canal of the femur. The 130 degree locking jig was used to place a guide pin centered into the femoral head on the AP and lateral fluoroscopic projections. This was followed by placement of a 110 mm spiral blade. The top locking screw was secured to create a single sliding construct. Distally the locking jig was used to place a single lateral to medial transverse static locking screw. Fluoroscopic imaging again confirmed hardware placement and fracture reduction. The surgical wound was thoroughly irrigated with sterile saline solution. Fascial layer was closed with #1 Vicryl suture, the subcutaneous layer with 2-0 Vicryl suture. The skin was closed with Dermabond. Sterile dressing applied. The patient tolerated the procedure well. No intraoperative complications were noted. NOTE Dereck Urban, physician respiratory therapist assistant certified was present during the entire procedure to include patient positioning and the procedure itself. The medical necessity of a physician respiratory therapist assistant was indicated in this case due to the complexity of the procedure itself. He assisted with appropriate manipulation of the leg and also retraction of muscle, tendon, bone and neurovascular structures. He assisted with preparation of bone and also implantation of the prosthetic replacement. Vanessa Soares MD Medications and IVs Current Medications Ondansetron HCl (Zofran Inj) 4 mg STK-MED ONCE .ROUTE ; Start 09/22/17 at 12:00; Stop 09/22/17 at 12:01; Status DC Iohexol (Omnipaque 350 Inj) 95 ml STK-MED ONCE IVCONTRAST Last administered on 09/22/17at 11:29; Start 09/22/17 at 11:29; Stop 09/22/17 at 12:14; Status DC Morphine Sulfate (Morphine Inj) 4 mg ONCE ONCE IV PUSH Last administered on 09/22/17at 13:32; Start 09/22/17 at 13:30; Stop 09/22/17 at 13:33; Status DC Ondansetron HCl (Zofran Inj) 4 mg ONCE ONCE IV PUSH Last administered on at 13:32; Start 09/22/17 at 13:30; Stop 09/22/17 at 13:33; Status DC Sodium Chloride 1,000 ml @ 100 mls/hr Q10H IV Last administered on 09/22/17at 15 :28; Start 09/22/17 at 15:28; Stop 09/22/17 at 19:29; Status DC Sodium Chloride (NS Flush) 2 ml UNSCH PRN IV FLUSH FLUSH AFTER USING IV ACCESS Last administered on 09/23/17at 20:05; Start 09/22/17 at 15:30 Morphine Sulfate (Morphine Inj) 2 mg Q3H PRN IV PUSH BREAKTHROUGH PAIN; Start 09/22/17 at 15:30; Stop 09/22/17 at 19:31; Status DC Oxycodone HCl (Roxicodone) 5 mg Q4H PRN PO PAIN SCALE 1 TO 5; Start 09/22/17 at 15:30; Stop 09/22/17 at 19:31; Status DC Oxycodone HCl (Roxicodone) 10 mg Q4H PRN PO PAIN SCALE 6 TO 10 Last administered on 09/22/17at 16:32; Start 09/22/17 at 15:30; Stop 09/22/17 at 19:31; Status DC Enalaprilat (Vasotec Inj) 1.25 mg Q8H PRN IV PUSH SBP>180, DBP>95; Start at 15:30 Ondansetron HCl (Zofran Inj) 4 mg Q6H PRN IV PUSH NAUSEA OR VOMITING; Start 09/22/17 at 15:30; Stop 09/22/17 at 19:29; Status DC Docusate Sodium (Colace) 100 mg BID PO ; Start 09/22/17 at 21:00; Stop 09/23/17 at 07:44; Status DC Magnesium Hydroxide (Milk Of Magnesia Liq) 30 ml BID PO Last administered on 07:46; Start 09/22/17 at 21:00 Famotidine (Pepcid) 20 mg BID PO Last administered on 09/24/17 07:45; Start 09/22/17 at 21:00 Methocarbamol (Robaxin) 500 mg Q8H PO Last administered on 09/24/17 07:40; Start 09/22/17 at 16:00 Lidocaine HCl (Lidoderm 5% Patch.12 Hr) 1 patch DAILY T-DERMAL Last administered on 09/23/17 08:59; Start 09/22/17 at 15:30 Acetaminophen 100 ml @ 400 mls/hr Q6H IV Last administered on 09/23/17 22:32; Start 09/22/17 at 16:00; Stop 09/23/17 at 23:55; Status DC Miscellaneous Information 1 Q24H T-DERMAL Last administered on 09/23/17 20:08; Start 09/22/17 at 21:00 Gentamicin Sulfate (Gentamicin Inj) 240 mg STK-MED ONCE .ROUTE ; Start 09/22/17 at 16:32; Stop 09/22/17 at 16:33; Status DC Dextrose/Sodium Chloride 1,000 ml @ 100 mls/hr Q10H IV Last administered on 09/23/17at 22:33; Start 09/22/17 at 17:35 Miscellaneous Information (Post-op Orders (for Pharmacy)) STAT ONCE XX ; Start 09/22/17 at 17:45; Stop 09/22/17 at 19:35; Status DC Enoxaparin Sodium (Lovenox Inj) 40 mg Q24H SQ Last administered on 09/23/17at 17: 37; Start 09/23/17 at 18:00; Stop 10/02/17 at 18:01 Senna/Docusate Sodium (Ileana-Colace) 1 tab BID PO Last administered on 09/24/17 07:45; Start 09/22/17 at 21:00 Magnesium Hydroxide (Milk Of Magnesia Liq) 10 ml Q12H PRN PO CONSTIPATION; Start 09/22/17 at 17:45; Stop 09/23/17 at 07:44; Status DC Cefazolin Sodium 1000 mg/Sodium Chloride 100 ml @ 200 mls/hr Q8H IV Last administered on 09/24/17at 07:43; Start 09/23/17 at 02:00 Miscellaneous Information UNSCH PRN XX SEE LABEL COMMENTS; Start 09/22/17 at 17 :45 Miscellaneous Medication ([facility]) ONCE ONCE XX ; Start 09/22 at 17:45; Stop 09/22/17 at 19:35; Status DC Acetaminophen/ Hydrocodone Bitart ([place] 7.5-325 Mg) 1 tab Q4H PRN PO PAIN SCALE 3 TO 5 Last administered on 09/24/17 14:48; Start 09/22/17 at 17:45 Acetaminophen/ Hydrocodone Bitart ([place] 7.5-325 Mg) 2 tab Q6H PRN PO PAIN GREATER THAN/EQUAL TO 5 Last administered on 09/24/17at 00:58; Start 09/22/17 at 17 :45 Morphine Sulfate (Morphine Inj) 5 mg Q3H PRN IV PUSH Pain after MERCHANDISE WORKER discontinued Last administered on 09/23/17 02:53; Start 09/22/17 at 17:45 Ondansetron HCl (Zofran Inj) 4 mg Q4H PRN IVP NAUSEA OR VOMITING Last administered on 09/23/17 06:44; Start 09/22/17 at 17:45 Multivitamins/ Minerals Therapeutic (Theragran M Tab) 1 tab DAILY PO Last administered on 09/24/17at 07:44; Start 09/23/17 at 09:00 Diphenhydramine HCl (Benadryl) 25 mg Q6H PRN PO ITCHING; Start 09/22/17 at 17:45 Vancomycin HCl (Vancomycin Inj) 1,000 mg STK-MED ONCE .ROUTE Last administered on 09/22/17at 18:05; Start 09/22/17 at 17:44; Stop 09/22/17 at 17:45; Status DC Cefazolin Sodium/ Dextrose 50 ml @ As Directed STK-MED ONCE .ROUTE Last administered on 09/22/17at 17:50; Start 09/22/17 at 17:44; Stop 09/22/17 at 17:45; Status DC Fentanyl Citrate (fentaNYL INJ) 200 mcg STK-MED ONCE .ROUTE ; Start 09/22/17 at 18:54; Stop 09/22/17 at 18:55; Status DC Morphine Sulfate (*morphine INJ PERIprocedure ONLY) 8 mg STK-MED ONCE .ROUTE Last administered on 09/22/17at 19:57; Start 09/22/17 at 19:57; Stop 09/22/17 at 19: 58; Status DC Miscellaneous Information ALL NURSING DEPARTME... UNSCH PRN .XX SEE LABEL COMMENTS; Start 09/22/17 at 22:15; Stop 09/23/17 at 22:14; Status DC Acetaminophen (Tylenol) 500 mg Q6H PRN PO PAIN SCALE 1 TO 2; Start 09/23/17 at 10:00 Cefazolin Sodium/ Dextrose 50 ml @ 100 mls/hr WALLET ASSEMBLER IV ; Start 09/24/17 at 11 :00; Stop 09/27/17 at 10:59 A/P Assessment and Plan Assessment and Plan 1. Status post traumatic fall with left hip fracture and left pubic ramus fracture status post op day #2 for left troch nail- continue postoperative care , pain control and physical therapy per orthopedic surgery 2. Abnormal CT of the chest and abdomen with findings of Enlarged bilateral axillary adenopathy and adenopathy in the upper abdomen concerning for lymphoma/ leukemia versus metastatic disease. -Patient has a insignificant past history with no recent abnormal review of systems symptoms. At this time, will obtain consultation with hematology to also review these films for further recommendations. 3. Tobacco abuse- cessation counseling 4. DVT prophylaxis- Lovenox Discharge Planning AM Ernie Reed DO Sep 24, 2017 15:09
[2017-09-24] MEDS: ENOXAPARIN SODIUM 40 MG/0.4 ML SYRINGE SQ SCH (18:19)
[2017-09-24] MEDS: ONDANSETRON HCL 4 MG/2 ML VIAL IVP PRN (19:45)
[2017-09-24] MEDS: MORPHINE SULFATE 4 MG/ML INJ IV PUSH PRN (19:47)
[2017-09-24 20:10] VITALS: BP 99/52; PULSE 80; RESP 17; TEMP 96.9; O2SAT 95
[2017-09-24] MEDS: REMOVE OLD LIDOCAINE PATCH T-DERMAL SCH (20:12)
[2017-09-24] MEDS: ACETAMINOPHEN 500 MG CPLT PO PRN (22:48)
[2017-09-25] MEDS: MORPHINE SULFATE 4 MG/ML INJ IV PUSH PRN ×2 (00:01→03:12)
[2017-09-25] MEDS: ONDANSETRON HCL 4 MG/2 ML VIAL IVP PRN ×3 (00:01→13:49)
[2017-09-25 00:15] VITALS: BP 109/58; PULSE 71; RESP 18; TEMP 98.5; O2SAT 94
[2017-09-25] MEDS ORDERED: CHLORHEXIDINE GLUCONATE 2 % 1 PACK (2 CLOTHS) TOPICAL PRN (04:00)
[2017-09-25] MEDS ORDERED: POVIDONE IODINE 5% (ANTISEPSIS KIT) 4 APPLICATIONS EACH NARE PRN (04:00)
[2017-09-25] MEDS ORDERED: METOPROLOL TARTRATE 25 MG TAB PO PRN (04:00)
[2017-09-25] MEDS ORDERED: LACTATED RINGER'S 1000 ML IV PRN (04:00)
[2017-09-25] MEDS ORDERED: SODIUM CHLORID 0.9% 500 ML IV PRN (04:00)
[2017-09-25] MEDS: DEXT 5%-NACL 0.45% 1000 ML INJ 1,000 ML IV SCH ×2 (05:35→15:35)
--- NOTE | 2017-09-25 05:44 | RADRPT ---
EXAM DATE/TIME: 09/25/2017 04:43 [facility] COMPARISON: CHEST SINGLE AP, September 24, 2017, 4:47. INDICATIONS : Follow up trauma from fall. MEDICAL HISTORY : None. SURGICAL HISTORY : Left hip surgery. ENCOUNTER: Subsequent ACUITY: 4 - 6 days PAIN SCORE: 0/10 LOCATION: Bilateral chest FINDINGS: Hiatal hernia. Hyperinflation. Cardiomegaly. CONCLUSION: No significant change has occurred. Kendall Borges MD on September 25, 2017 at 5:42 Board Certified Radiologist. This report was verified electronically.
[2017-09-25 06:03] LABS: AUTOMATED NEUTROPHIL # 5.2 TH/MM3 (1.8-7.7); BASOPHIL % 0.4 % (0.0-2.0); EOSINOPHIL # 0.2 TH/MM3 (0-0.4); EOSINOPHIL % 2.3 % (0.0-4.0); HEMATOCRIT 29.4 % (39.0-51.0); HEMOGLOBIN 10.4 GM/DL (13.0-17.0); LYMPH % 14.8 % (9.0-44.0); LYMPHOCYTE # 1.1 TH/MM3 (1.0-4.8); MEAN CORPUSCULAR HGB CONC 35.3 % (32.0-36.0); MEAN PLATELET VOLUME 7.9 FL (7.0-11.0); MONO % 14.5 % (0.0-8.0); MONOCYTE # 1.1 TH/MM3 (0-0.9); PLATELET COUNT 158 TH/MM3 (150-450); RED BLOOD COUNT 3.47 MIL/MM3 (4.50-5.90); RED CELL DISTRIBUTION WIDTH 15.5 % (11.6-17.2); WHITE BLOOD COUNT 7.7 TH/MM3 (4.0-11.0)
[2017-09-25 06:14] LABS: ALBUMIN 2.6 GM/DL (3.4-5.0); ALT (GPT) 20 U/L (12-78); AST (GOT) 18 U/L (15-37); BICARBONATE 28.9 MEQ/L (21.0-32.0); BLOOD UREA NITROGEN 11 MG/DL (7-18); CHLORIDE 105 MEQ/L (98-107); CREATININE 0.61 MG/DL (0.60-1.30); GLOMERULAR FILTRATION RATE 114 ML/MIN (>89); GLUCOSE,RANDOM 98 MG/DL (74-106); MAGNESIUM 2.2 MG/DL (1.5-2.5); SODIUM (NA) 139 MEQ/L (136-145)
[2017-09-25 06:18] LABS: INTERNATIONAL NORMALIZED RATIO 0.9 RATIO; PROTHROMBIN TIME - PATIENT 9.5 SEC (9.8-11.6)
[2017-09-25 06:23] LABS: ALKALINE PHOSPHATASE 61 U/L (45-117); TOTAL BILIRUBIN ADULT 0.4 MG/DL (0.2-1.0); TOTAL PROTEIN 5.7 GM/DL (6.4-8.2)
[2017-09-25 08:00] VITALS: BP 134/61; PULSE 66; RESP 18; TEMP 97.3; O2SAT 96
--- NOTE | 2017-09-25 08:47 | HHI.PR ---
Subjective Subjective Notes PTD: 3 1040: Pt c/o LEFT hip pain. Pt being wheeled down to OR for axillary needle biopsy. Objective Vitals/I&O Vital Signs Date Time Temp Pulse Resp B/P (MAP) Pulse Ox O2 Delivery O2 Flow Rate FiO2 09/25/17 00:15 98.5 71 18 109/58 (75) 94 09/24/17 08:33 21 09/23/17 09:38 Nasal Cannula 2.00 Labs Laboratory Tests Test 09/25/17 05:25 White Blood Count 7.7 Red Blood Count 3.47 Hemoglobin 10.4 Hematocrit 29.4 Mean Corpuscular Volume 85.0 Mean Corpuscular Hemoglobin 30.0 Mean Corpuscular Hemoglobin Concent 35.3 Red Cell Distribution Width 15.5 Platelet Count 158 Mean Platelet Volume 7.9 Neutrophils (%) (Auto) 68.0 Lymphocytes (%) (Auto) 14.8 Monocytes (%) (Auto) 14.5 Eosinophils (%) (Auto) 2.3 Basophils (%) (Auto) 0.4 Neutrophils # (Auto) 5.2 Lymphocytes # (Auto) 1.1 Monocytes # (Auto) 1.1 Eosinophils # (Auto) 0.2 Basophils # (Auto) 0.0 CBC Comment DIFF FINAL Differential Comment Prothrombin Time 9.5 Prothromb Time International Ratio 0.9 Blood Urea Nitrogen 11 Creatinine 0.61 Random Glucose 98 Total Protein 5.7 Albumin 2.6 Calcium Level 8.0 Phosphorus Level 3.0 Magnesium Level 2.2 Alkaline Phosphatase 61 Aspartate Amino Transf (AST/SGOT) 18 Alanine Aminotransferase (ALT/SGPT) 20 Total Bilirubin 0.4 Sodium Level 139 Potassium Level 4.0 Chloride Level 105 Carbon Dioxide Level 28.9 Anion Gap 5 Estimat Glomerular Filtration Rate 114 Free Thyroxine 1.10 Thyroid Stimulating Hormone 3rd Gen 1.360 Radiology Last 24 hours Impressions Chest X-Ray 09/24/17 0600 Signed Impressions: Service Date/Time: Sunday, September 24, 2017 04:47 - CONCLUSION: No significant change has occurred. Kendall Borges MD Narrative Exam GENERAL: This is a 62-year-old male lying in bed. No distress noted. SKIN: Warm and dry. HEAD: Atraumatic. Normocephalic. EYES: PERRLA ENT: No nasal bleeding or discharge. Mucous membranes pink and moist. NECK: Trachea midline. No JVD. CARDIOVASCULAR: Regular rate and rhythm. RESPIRATORY: No accessory muscle use. Lungs are clear to auscultation. Breath sounds equal bilaterally. No distress or dyspnea. GASTROINTESTINAL: BS + x 4 quads. Abdomen soft, non-tender, nondistended. MUSCULOSKELETAL: Extremities without cyanosis, or edema. + peripheral pulses x 4 extremities. Warm with good capillary refill and sensation. MAEW. NEUROLOGICAL: Awake and alert. Normal speech and pattern. A/P Problem List: (1) Fracture, intertrochanteric, left femur ICD Codes: S72.142A - Displaced intertrochanteric fracture of left femur, initial encounter for closed fracture Status: Acute (2) Fracture of left ischium ICD Codes: S32.602A - Unspecified fracture of left ischium, initial encounter for closed fracture Status: Acute (3) Pelvic hematoma in male ICD Codes: N50.1 - Vascular disorders of male genital organs Status: Acute (4) Fracture of left inferior pubic ramus ICD Codes: S32.592A - Other specified fracture of left pubis, initial encounter for closed fracture Status: Acute Assessment and Plan [place]: This is a 62-year-old male who sustained a fall. He fell from a tree, approximately 10 feet. He landed on his left hip. No LOC. INJURIES: RIGHT rib fx (sub acute vs. chronic) LEFT ischium fx LEFT inferior pubic ramus fx (non-op) LEFT femoral intertrochanter fx Small pelvic hematoma Procedures: 09/22: LEFT troch nail 09/25: Lymph node Biopsy Consults: Orthopedics. Hospitalist. Hematology. Case management. Diet: Regular diet. Tolerating po diet. Encourage good po intake with each meal. Pulmonary: Encourage good pulmonary toileting. IS and acapella at bedside and pt encouraged to use. Rationale for use explained to patient, and verbalized understanding. PAIN Management: [place] 7.5-15 mg q 4h. Morphine 5 mg q 3h. Robaxin 500 mg q 8h. Lidoderm patch. OFIRMEV q 6 x 24h. Activity: OOB. PT and OT ordered. (TTWB LLE) GI prophylaxis: Pepcid 20 mg BID po. Bowel regimen: Ileana - colace and MOM. Added Lactulose daily. LBM: 0 DVT prophylaxis: Mechanical VTE with SCDs. Chemical management with Lovenox 40 QD SQ. DC Planning: Case management consulted for assistance with final discharge disposition. PT recommends Rehab vs. C PT. Pt states that he lives alone, however he could get a friend to stay with him while he recuperates. Emotional support provided to patient and family at bedside and plan of care discussed. Discussed with RN at bedside. Discussed pt condition and plan of care with collaborating trauma surgeon. Patient is hemodynamically stable and being managed on the med/surg floor. The trauma team will round each day, and evaluate plan of care on a daily basis. RIGHT rib fx (sub acute vs. chronic) O2 as needed Aggressive pulmonary toileting Chest x-rays as needed Pain management PT and OT ordered Encourage out of bed LEFT ischium fx LEFT inferior pubic ramus fx (non-op) LEFT femoral intertrochanter fx Small pelvic hematoma Orthopedics consulted and assisting in management and care 2/: Left troch nail Pain management PT and OT ordered TTWB LLE Encourage out of bed Lovenox for DVT prophylaxis Antibiotics per orthopedics Dressings per orthopedics H&H stable *Enlarged bilateral axillary adenopathy *Adenopathy in upper abdomen concerning for lymphoma/leukemia Hospitalist following pt Hematology consulted and assisting in management and care 2/: Lymph node biopsy Problem Qualifiers (1) Fracture, intertrochanteric, left femur: Qualified Codes: S72.142A - Displaced intertrochanteric fracture of left femur , initial encounter for closed fracture (2) Fracture of left ischium: (3) Fracture of left inferior pubic ramus: Qualified Codes: S32.592A - Other specified fracture of left pubis, initial encounter for closed fracture Danielle Ames Sep 25, 2017 08:47
[2017-09-25] MEDS: FAMOTIDINE 20 MG TAB PO SCH ×2 (09:00→20:44)
[2017-09-25] MEDS: DOCUSATE SODIUM 50 MG/SENNA 8.6 MG TAB PO SCH ×2 (09:21→20:45)
[2017-09-25] MEDS: METHOCARBAMOL 500 MG TAB PO SCH ×4 (09:21→23:55)
[2017-09-25] MEDS: ACETAMINOPHEN 500 MG CPLT PO PRN ×2 (09:21→20:45)
[2017-09-25] MEDS: MULTIVITAMINS/MINERALS THERAPEUTIC TAB PO SCH (09:21)
[2017-09-25] MEDS: LACTULOSE SYRUP 20 GM/30 ML CUP PO SCH (09:22)
[2017-09-25] MEDS: MAGNESIUM HYDROXIDE SUSP 30 ML CUP PO SCH ×2 (09:22→20:45)
[2017-09-25] MEDS: LIDOCAINE HCL 5% PATCH T-DERMAL SCH (09:23)
[2017-09-25] MEDS ORDERED: LIDOCAINE 1%/EPINEPHrine 1:100,000 SOLN 50 ML VIAL ONE (10:29)
--- NOTE | 2017-09-25 10:38 | PD.ONC.PN ---
Subjective Subjective Remarks Afebrile overnight. Patient resting comfortably without complaint. Waiting to have axillary LN biopsy today. Objective Data Date Time Temp Pulse Resp B/P (MAP) Pulse Ox O2 Delivery O2 Flow Rate FiO2 09/25/17 00:15 98.5 71 18 109/58 (75) 94 09/24/17 20:10 96.9 80 17 99/52 (68) 95 09/24/17 12:00 98.7 76 16 126/65 (85) 95 09/25/17 09/25/17 09/25/17 07:00 15:00 23:00 Intake Total 581 ml Output Total 200 ml Balance 381 ml Result Diagram: 09/25/17 0525 09/25/17 0525 Laboratory Results Laboratory Tests Test 09/25/17 05:25 White Blood Count 7.7 TH/MM3 Red Blood Count 3.47 MIL/MM3 Hemoglobin 10.4 GM/DL Hematocrit 29.4 % Mean Corpuscular Volume 85.0 FL Mean Corpuscular Hemoglobin 30.0 PG Mean Corpuscular Hemoglobin Concent 35.3 % Red Cell Distribution Width 15.5 % Platelet Count 158 TH/MM3 Mean Platelet Volume 7.9 FL Neutrophils (%) (Auto) 68.0 % Lymphocytes (%) (Auto) 14.8 % Monocytes (%) (Auto) 14.5 % Eosinophils (%) (Auto) 2.3 % Basophils (%) (Auto) 0.4 % Neutrophils # (Auto) 5.2 TH/MM3 Lymphocytes # (Auto) 1.1 TH/MM3 Monocytes # (Auto) 1.1 TH/MM3 Eosinophils # (Auto) 0.2 TH/MM3 Basophils # (Auto) 0.0 TH/MM3 CBC Comment DIFF FINAL Differential Comment Prothrombin Time 9.5 SEC Prothromb Time International Ratio 0.9 RATIO Blood Urea Nitrogen 11 MG/DL Creatinine 0.61 MG/DL Random Glucose 98 MG/DL Total Protein 5.7 GM/DL Albumin 2.6 GM/DL Calcium Level 8.0 MG/DL Phosphorus Level 3.0 MG/DL Magnesium Level 2.2 MG/DL Alkaline Phosphatase 61 U/L Aspartate Amino Transf (AST/SGOT) 18 U/L Alanine Aminotransferase (ALT/SGPT) 20 U/L Total Bilirubin 0.4 MG/DL Sodium Level 139 MEQ/L Potassium Level 4.0 MEQ/L Chloride Level 105 MEQ/L Carbon Dioxide Level 28.9 MEQ/L Anion Gap 5 MEQ/L Estimat Glomerular Filtration Rate 114 ML/MIN Free Thyroxine 1.10 NG/DL Thyroid Stimulating Hormone 3rd Gen 1.360 uIU/ML Imaging Studies Last 24 hours Impressions Chest X-Ray 09/25/17 0600 Signed Impressions: Service Date/Time: Monday, September 25, 2017 04:43 - CONCLUSION: No significant change has occurred. Kendall Borges MD Administered Medications Medications (Trade) Dose Ordered Sig/Fiona Route PRN Reason Start Time Stop Time Status Last Admin Dose Admin Sodium Chloride (NS Flush) 2 ml UNSCH PRN IV FLUSH FLUSH AFTER USING IV ACCESS 09/22/17 15:30 09/23/17 20:05 Magnesium Hydroxide (Milk Of Jemal Liwilliam) 30 ml BID PO 09/22/17 21:00 09/25/17 09:22 Famotidine (Pepcid) 20 mg BID PO 09/22/17 21:00 09/25/17 09:00 Methocarbamol (Robaxin) 500 mg Q8H PO 09/22/17 16:00 09/25/17 09:21 Lidocaine HCl (Lidoderm 5% Patch.12 Hr) 1 patch DAILY T-DERMAL 09/22/17 15:30 09/25/17 09:23 Miscellaneous Information 1 Q24H T-DERMAL 09/22/17 21:00 09/24/17 20:12 Dextrose/Sodium Chloride 1,000 ml @ 100 mls/hr Q10H IV 09/22/17 17:35 09/24/17 22:42 Enoxaparin Sodium (Lovenox Inj) 40 mg Q24H SQ 09/23/17 18:00 10/02/17 18:01 09/24/17 18:19 Senna/Docusate Sodium (Ileana-Colace) 1 tab BID PO 09/22/17 21:00 09/25/17 09:21 Cefazolin Sodium 1000 mg/Sodium Chloride 100 ml @ 200 mls/hr Q8H IV 09/23/17 02:00 09/25/17 09:23 Acetaminophen/ Hydrocodone Bitart ([place] 7.5-325 Mg) 1 tab Q4H PRN PO PAIN SCALE 3 TO 5 09/22/17 17:45 09/24/17 22:47 Acetaminophen/ Hydrocodone Bitart ([place] 7.5-325 Mg) 2 tab Q6H PRN PO PAIN GREATER THAN/EQUAL TO 5 09/22/17 17:45 09/24/17 00:58 Morphine Sulfate (Morphine Inj) 5 mg Q3H PRN IV PUSH Pain after [employer]UR[employer] discontinued 09/22/17 17:45 09/25/17 03:12 Ondansetron HCl (Zofran Inj) 4 mg Q4H PRN IVP NAUSEA OR VOMITING 09/22/17 17:45 09/25/17 05:06 Multivitamins/ Minerals Therapeutic (Theragran M Tab) 1 tab DAILY PO 09/23/17 09:00 09/25/17 09:21 Acetaminophen (Tylenol) 500 mg Q6H PRN PO PAIN SCALE 1 TO 2 09/23/17 10:00 09/25/17 09:21 Lactulose (Lactulose Liq) 30 ml DAILY PO 09/25/17 09:00 09/25/17 09:22 Objective Remarks GENERAL: Pleasant middle aged male, lying in bed resting in nad. SKIN: Warm and dry. bandages along left hip with ice overlying. HEAD: Normocephalic. EYES: No scleral icterus. No injection or drainage. NECK: Supple, trachea midline. CARDIOVASCULAR: Regular rate and rhythm RESPIRATORY: anterior yanes clear. GASTROINTESTINAL: Abdomen soft, non-tender, nondistended. EXTREMITIES: No cyanosis MUSCULOSKELETAL: Adequate muscle tone. NEUROLOGICAL: awake and alert. Assessment/Plan Problem List: (1) Lymphadenopathy ICD Codes: R59.1 - Generalized enlarged lymph nodes Plan: 09/25: axillary biopsy today. await pathology --most likely consistent with lymphoma until proven otherwise. --HIV pending --LDH elevated. --CT c/a/p: shows bilateral axillary lymph adenopathy + retroperitoneal LAD; however, there is no mediastinal or hilar lymphadenopathy noted. --no B symptoms, ie.e fever, night sweats or weight loss. (2) Fracture of left inferior pubic ramus ICD Codes: S32.592A - Other specified fracture of left pubis, initial encounter for closed fracture Status: Acute (3) Fracture, intertrochanteric, left femur ICD Codes: S72.142A - Displaced intertrochanteric fracture of left femur, initial encounter for closed fracture Status: Acute Assessment 62y/o male admitted s/p left hip fracture. hematology consulted for incidentally found lymphadenopathy. Attending Statement The exam, history, and the medical decision-making described in the above note were completed with the assistance of the mid-level provider. I reviewed and agree with the findings presented. I attest that I had a [id number] encounter with the patient on the same day, and personally performed and documented my assessment and findings in the medical record. no c/o awaiting LN bx. will follow Problem Qualifiers (1) Fracture of left inferior pubic ramus: Qualified Codes: S32.592A - Other specified fracture of left pubis, initial encounter for closed fracture (2) Fracture, intertrochanteric, left femur: Qualified Codes: S72.142A - Displaced intertrochanteric fracture of left femur , initial encounter for closed fracture Yuly Rondon Sep 25, 2017 10:38 Eric Torres MD Sep 25, 2017 15:25
[2017-09-25] MEDS ORDERED: WALKER WHEELS/F1 MIS (10:42)
--- NOTE | 2017-09-25 10:45 | PD.ORT.PN ---
Subjective Post Op Day #: 3 Subjective Remarks The patient is resting in bed with continued moderate pain to the left hip and pelvis. Denies tingling and numbness in BLEs. Objective Vitals Vital Signs Date Time Temp Pulse Resp B/P (MAP) Pulse Ox O2 Delivery O2 Flow Rate FiO2 09/25/17 00:15 98.5 71 18 109/58 (75) 94 09/24/17 20:10 96.9 80 17 99/52 (68) 95 09/24/17 12:00 98.7 76 16 126/65 (85) 95 I/O 09/24/17 09/24/17 09/24/17 09/25/17 09/25/17 09/25/17 07:00 15:00 23:00 07:00 15:00 23:00 Intake Total 440 ml 3203 ml 581 ml Output Total 500 ml 1050 ml 200 ml Balance -60 ml 2153 ml 381 ml Intake Oral 240 ml 960 ml 360 ml IV Total 200 ml 2243 ml 221 ml Output Urine Total 500 ml 1050 ml 200 ml # Bowel Movements 0 0 0 Result Diagram: 09/25/17 0525 09/25/17 0525 Other Results Laboratory Tests Test 09/25/17 05:25 Prothromb Time International Ratio 0.9 RATIO Prothrombin Time 9.5 SEC (9.8-11.6) Imaging Last 24 hours Impressions Chest X-Ray 09/23/17 0600 Signed Impressions: Service Date/Time: Saturday, September 23, 2017 07:43 - CONCLUSION: No acute disease. Hong Damian MD Pelvis X-Ray 09/22/171129 Signed Impressions: Service Date/Time: September 11:30 - CONCLUSION: Nondisplaced fractures suspected involving the pelvis as detailed above. Consider CT to further evaluate. Yaniv Alvarez Jr., MD Head CT [id number]/22/171129 Signed Impressions: Service Date/Time: September 11:42 - CONCLUSION: 1. No acute hemorrhage or mass effect. 2. Remote postsurgical changes with screw-plate fixation devices anterior maxilla. There is an apparent old left nasal bone fracture. Lalo Danielson MD Chest X-Ray 09/22/171129 Signed Impressions: Service Date/Time: September 11:30 - CONCLUSION: 1. Negative portable chest status post trauma. Vaughn Beltre MD Chest CT 09/22/17 1130 Signed Impressions: Service Date/Time: September 11:50 - CONCLUSION: 1. Enlarged bilateral axillary adenopathy and adenopathy in the upper abdomen concerning for lymphoma/leukemia versus metastatic disease. 2. No acute thoracic injury. 3. Large hiatal hernia. 4. Right lower lateral rib fracture appear subacute to chronic. Hong Damian MD Cervical Spine CT 09/22/171129 Signed Impressions: Service Date/Time: September 11:44 - CONCLUSION: 1. No fracture or dislocation. 2. Mild degenerative changes. Yaniv Alvarez Jr., MD Abdomen/Pelvis CT 09/22/171129 Signed Impressions: Service Date/Time: September 11:48 - CONCLUSION: 1. Acute fractures involving the left ischium, left inferior pubic ramus, and left intertrochanteric hip with small left pelvic hematoma. 2. Retroperitoneal adenopathy worrisome for a myeloproliferative disorder. 3. Tiny low-density lesions involving the liver likely related to cysts. Yaniv Alvarez Jr., MD Objective Remarks in bed, nad dressing c/d/i to the left hip thigh swelling mild, soft neg homans, calf is soft and nontender. nvi Assessment & Plan Ortho Post Op Day #: 3 Problem List: Assessment and Plan s/p L Troch Nail POD3 pelvic rami fxs TTWB daily dressing changes lovenox, d/c on [id number] d/c planning rx in chart f/up dr. almanza 2 weeks Needle biopsy with Julio Tong Sep 25, 2017 10:45
[2017-09-25 11:40] LABS: HEMOGLOBIN A1C 5.6 % (4.3-6.0)
[2017-09-25] MEDS ORDERED: DEXAMETHASONE SOD PHOS 4 MG/ML VIAL IV ONE (12:00)
[2017-09-25] MEDS ORDERED: PROPOFOL 200 MG/20 ML AMP IV ONE (12:00)
[2017-09-25] MEDS ORDERED: LIDOCAINE HCL 1% PF 5 ML SYRINGE OTHER ONE (12:00)
[2017-09-25] MEDS ORDERED: ONDANSETRON HCL 4 MG/2 ML VIAL IV ONE (12:00)
[2017-09-25] MEDS ORDERED: ePHEDrine/NS 25 MG/5 ML SYRINGE IV ONE (12:00)
[2017-09-25] MEDS ORDERED: DO NOT ADM ANY ANTICOAGULANT DRUGS PRN (12:30)
[2017-09-25] MEDS ORDERED: MIDAZOLAM HCL 2 MG/2 ML VIAL ONE (12:44)
[2017-09-25 13:30] VITALS: BP 147/75; PULSE 64; RESP 16; TEMP 96.5; O2SAT 94
[2017-09-25] MEDS: ACETAMINOPHEN/HYDROcodone 325 MG/7.5 MG TAB PO PRN (14:26)
--- NOTE | 2017-09-25 14:36 | HHI.PR ---
Subjective Remarks 62-year-old white male with no past history was brought in as a TRAUMA ALERT after he sustained a fall accidentally from a tree 10 feet above the ground sustaining a left hip fracture and left pubic ramus fracture in which he underwent a ORIF with Dr. Soares orthopedic surgery on September. He states that he did not lose consciousness from the fall. Prior to the fall, he has been healthy with no symptoms of fatigue, recent weight loss, appetite changes, joint pain nor muscle aches. 2-3 PATIENT IS SCHEDULED TO HAVE BIOPSIES OF LYMPHADENOPATHY TOMORROW PER RN STATES HE WORKED WITH PHYSICAL THERAPY TODAY AM LABS 2-4 HAD LEFT AXILLARY BIOPSIES TODAY WITH SURGERY PATHOLOGY IS OBVIOUSLY PENDING PAIN CONTROL HAS DARK URINE WILL SEND UA WITH C&S DW RN AND PATIENT INCREASE ACTIVITY PT AND OT Objective Vitals Vital Signs Date Time Temp Pulse Resp B/P (MAP) Pulse Ox O2 Delivery O2 Flow Rate FiO2 09/25/17 12:57 66 14 142/84 (103) 93 Room Air 09/25/17 12:46 68 14 151/81 (104) 93 Room Air 09/25/17 12:33 98.4 64 14 159/88 (111) 97 Room Air 09/25/17 08:00 97.3 66 18 134/61 (85) 96 09/25/17 00:15 98.5 71 18 109/58 (75) 94 09/24/17 20:10 96.9 80 17 99/52 (68) 95 I/O 09/24/17 09/24/17 09/24/17 09/25/17 09/25/17 09/25/17 07:00 15:00 23:00 07:00 15:00 23:00 Intake Total 440 ml 3203 ml 581 ml 650 ml Output Total 500 ml 1050 ml 200 ml 10 ml Balance -60 ml 2153 ml 381 ml 640 ml Intake Oral 240 ml 960 ml 360 ml IV Total 200 ml 2243 ml 221 ml 650 ml Output Urine Total 500 ml 1050 ml 200 ml Estimated Blood Loss 10 ml # Bowel Movements 0 0 0 Result Diagram: 09/25/17 0525 09/25/17 0525 Other Results Laboratory Tests Test 09/23/17 03:25 09/24/17 04:36 09/25/17 05:25 White Blood Count 12.2 TH/MM3 8.7 TH/MM3 7.7 TH/MM3 Red Blood Count 4.09 MIL/MM3 3.66 MIL/MM3 3.47 MIL/MM3 Hemoglobin 11.7 GM/DL 10.6 GM/DL 10.4 GM/DL Hematocrit 35.0 % 31.0 % 29.4 % Mean Corpuscular Volume 85.6 FL 84.8 FL 85.0 FL Mean Corpuscular Hemoglobin 28.6 PG 29.1 PG 30.0 PG Mean Corpuscular Hemoglobin Concent 33.5 % 34.3 % 35.3 % Red Cell Distribution Width 15.3 % 15.7 % 15.5 % Platelet Count 183 TH/MM3 159 TH/MM3 158 TH/MM3 Mean Platelet Volume 8.0 FL 8.0 FL 7.9 FL Neutrophils (%) (Auto) 83.2 % 68.0 % Lymphocytes (%) (Auto) 7.7 % 14.8 % Monocytes (%) (Auto) 8.9 % 14.5 % Eosinophils (%) (Auto) 0.0 % 2.3 % Basophils (%) (Auto) 0.2 % 0.4 % Neutrophils # (Auto) 10.2 TH/MM3 5.2 TH/MM3 Lymphocytes # (Auto) 0.9 TH/MM3 1.1 TH/MM3 Monocytes # (Auto) 1.1 TH/MM3 1.1 TH/MM3 Eosinophils # (Auto) 0.0 TH/MM3 0.2 TH/MM3 Basophils # (Auto) 0.0 TH/MM3 0.0 TH/MM3 CBC Comment DIFF FINAL DIFF FINAL Differential Comment Blood Urea Nitrogen 12 MG/DL 10 MG/DL 11 MG/DL Creatinine 0.70 MG/DL 0.78 MG/DL 0.61 MG/DL Random Glucose 146 MG/DL 101 MG/DL 98 MG/DL Calcium Level 8.3 MG/DL 8.0 MG/DL 8.0 MG/DL Sodium Level 137 MEQ/L 139 MEQ/L 139 MEQ/L Potassium Level 3.9 MEQ/L 3.6 MEQ/L 4.0 MEQ/L Chloride Level 104 MEQ/L 106 MEQ/L 105 MEQ/L Carbon Dioxide Level 26.2 MEQ/L 29.8 MEQ/L 28.9 MEQ/L Anion Gap 7 MEQ/L 3 MEQ/L 5 MEQ/L Estimat Glomerular Filtration Rate 97 ML/MIN 86 ML/MIN 114 ML/MIN Lactate Dehydrogenase 421 U/L Prothrombin Time 9.5 SEC Prothromb Time International Ratio 0.9 RATIO Total Protein 5.7 GM/DL Albumin 2.6 GM/DL Phosphorus Level 3.0 MG/DL Magnesium Level 2.2 MG/DL Alkaline Phosphatase 61 U/L Aspartate Amino Transf (AST/SGOT) 18 U/L Alanine Aminotransferase (ALT/SGPT) 20 U/L Total Bilirubin 0.4 MG/DL Free Thyroxine 1.10 NG/DL Thyroid Stimulating Hormone 3rd Gen 1.360 uIU/ML Imaging Last Impressions Chest X-Ray 09/25/17 0600 Signed Impressions: Service Date/Time: Monday, September 25, 2017 04:43 - CONCLUSION: No significant change has occurred. Kendall Borges MD Pelvis X-Ray 09/22/171129 Signed Impressions: Service Date/Time: September 11:30 - CONCLUSION: Nondisplaced fractures suspected involving the pelvis as detailed above. Consider CT to further evaluate. Yaniv Alvarez Jr., MD Head CT [id number]/22/171129 Signed Impressions: Service Date/Time: September 11:42 - CONCLUSION: 1. No acute hemorrhage or mass effect. 2. Remote postsurgical changes with screw-plate fixation devices anterior maxilla. There is an apparent old left nasal bone fracture. Lalo Danielson MD Chest CT [id number]/22/171129 Signed Impressions: Service Date/Time: September 11:50 - CONCLUSION: 1. Enlarged bilateral axillary adenopathy and adenopathy in the upper abdomen concerning for lymphoma/leukemia versus metastatic disease. 2. No acute thoracic injury. 3. Large hiatal hernia. 4. Right lower lateral rib fracture appear subacute to chronic. Hong Damian MD Cervical Spine CT 09/22/171129 Signed Impressions: Service Date/Time: September 11:44 - CONCLUSION: 1. No fracture or dislocation. 2. Mild degenerative changes. Yaniv Alvarez Jr., MD Abdomen/Pelvis CT 09/22/171129 Signed Impressions: Service Date/Time: September 11:48 - CONCLUSION: 1. Acute fractures involving the left ischium, left inferior pubic ramus, and left intertrochanteric hip with small left pelvic hematoma. 2. Retroperitoneal adenopathy worrisome for a myeloproliferative disorder. 3. Tiny low-density lesions involving the liver likely related to cysts. Yaniv Alvarez Jr., MD Hip X-Ray 09/22/17 0000 Signed Impressions: Service Date/Time: September 18:15 - CONCLUSION: ORIF of left proximal femur fracture with hardware in good position. Steve Teague MD Femur X-Ray 09/22/17 0000 Signed Impressions: Service Date/Time: September 11:30 - CONCLUSION: 1. Comminuted left femoral intertrochanteric fracture. 2. Nondisplaced left inferior pubic ramus fracture. Vaughn Beltre MD Objective Remarks GENERAL: This is a well-nourished, well-developed patient, in no apparent distress. SKIN: No rashes, ecchymoses or lesions. Cool and dry. LEFT AXILLARY AREA IS DRESSED TENDER WITH PAIN ON MOVEMENT HEAD: Atraumatic. Normocephalic. No temporal or scalp tenderness. EYES: Pupils equal round and reactive. Extraocular motions intact. No scleral icterus. No injection or drainage. ENT: Nose without bleeding, purulent drainage or septal hematoma. Throat without erythema, tonsillar hypertrophy or exudate. Uvula midline. Airway patent. NECK: Trachea midline. No JVD . Supple, nontender, no meningeal signs. Exam in the axillary area showed lymphadenopathy CARDIOVASCULAR: Regular rate and rhythm without murmurs, gallops, or rubs. S1, S2 NO S3 OR S4 RESPIRATORY: Clear to auscultation. Breath sounds equal bilaterally. No wheezes , rales, or rhonchi. GASTROINTESTINAL: Abdomen soft, non-tender, nondistended. No guarding. Normoactive bowel sounds MUSCULOSKELETAL: Extremities without clubbing, cyanosis, or edema. Left hip bandage clean dry intact NEUROLOGICAL: Awake and alert to person place and time and situation. Cranial nerves II through XII intact. Motor and sensory grossly within normal limits. Five out of 5 muscle strength in all muscle groups. Normal speech. Insight and judgment is good Mood and behaviors appropriate Procedures VANESSA SOARES DATE OF SURGERY: 09/22/2017 PREOPERATIVE DIAGNOSIS: Left intertrochanteric hip fracture. POSTOPERATIVE DIAGNOSIS: Left intertrochanteric hip fracture. OPERATIVE PROCEDURE PERFORMED: Trochanteric femoral nailing left intertrochanteric hip fracture. SURGEON: Dr. Vanessa Soares. AUTO ACCESSORIES INSTALLER: Chidi Lo ANESTHESIA General. ESTIMATED BLOOD LOSS: 100 cc. COMPLICATIONS: None. IMPLANTS USED: Synthes. JUSTIFICATION FOR THE PROCEDURE: This patient is a 62-year-old male who fell from a tree sustaining a left comminuted intertrochanteric femur fracture as well as left-sided pelvic rami fractures. He was taken to the [facility] Emergency Room. Orthopedic surgery was consulted. The patient was counselled as to the risks, benefits and alternatives to the above-named proposed surgical procedure and did wish to proceed with surgery. DESCRIPTION OF THE PROCEDURE IN DETAIL: Written consent was obtained. The patient was identified by name and taken to the operating room and placed in the supine position. General endotracheal anesthesia was administered as well as 2 grams of IV Ancef and 1 gram of IV Vancomycin. The left foot was placed in a padded traction boot. The right leg was placed in a padded well-leg askew. All bony prominences and pressure points were well-padded. The left hip and left lower extremity were prepped and draped using isopropyl alcohol, Hibiclens solution and Chloraprep solution. After a time out was performed, a longitudinal incision was made over the lateral aspect of the left hip. The fascial layer was incised. The guidewire was used to gain entrance into the intramedullary canal of the femur. This was followed by a cannulated entry reamer. Subsequently a Synthes trochanteric femoral nail was inserted into the intramedullary canal of the femur. The 130 degree locking jig was used to place a guide pin centered into the femoral head on the AP and lateral fluoroscopic projections. This was followed by placement of a 110 mm spiral blade. The top locking screw was secured to create a single sliding construct. Distally the locking jig was used to place a single lateral to medial transverse static locking screw. Fluoroscopic imaging again confirmed hardware placement and fracture reduction. The surgical wound was thoroughly irrigated with sterile saline solution. Fascial layer was closed with #1 Vicryl suture, the subcutaneous layer with 2-0 Vicryl suture. The skin was closed with Dermabond. Sterile dressing applied. The patient tolerated the procedure well. No intraoperative complications were noted. NOTE Dereck Urban, physician special ed assistant certified was present during the entire procedure to include patient positioning and the procedure itself. The medical necessity of a physician special ed assistant was indicated in this case due to the complexity of the procedure itself. He assisted with appropriate manipulation of the leg and also retraction of muscle, tendon, bone and neurovascular structures. He assisted with preparation of bone and also implantation of the prosthetic replacement. Vanessa Soares MD Medications and IVs Current Medications Ondansetron HCl (Zofran Inj) 4 mg STK-MED ONCE .ROUTE ; Start 09/22/17 at 12:00; Stop 09/22/17 at 12:01; Status DC Iohexol (Omnipaque 350 Inj) 95 ml STK-MED ONCE IVCONTRAST Last administered on 09/22/17at 11:29; Start 09/22/17 at 11:29; Stop 09/22/17 at 12:14; Status DC Morphine Sulfate (Morphine Inj) 4 mg ONCE ONCE IV PUSH Last administered on 09/22/17at 13:32; Start 09/22/17 at 13:30; Stop 09/22/17 at 13:33; Status DC Ondansetron HCl (Zofran Inj) 4 mg ONCE ONCE IV PUSH Last administered on at 13:32; Start 09/22/17 at 13:30; Stop 09/22/17 at 13:33; Status DC Sodium Chloride 1,000 ml @ 100 mls/hr Q10H IV Last administered on 09/22/17at 15 :28; Start 09/22/17 at 15:28; Stop 09/22/17 at 19:29; Status DC Sodium Chloride (NS Flush) 2 ml UNSCH PRN IV FLUSH FLUSH AFTER USING IV ACCESS Last administered on 09/23/17at 20:05; Start 09/22/17 at 15:30 Morphine Sulfate (Morphine Inj) 2 mg Q3H PRN IV PUSH BREAKTHROUGH PAIN; Start 09/22/17 at 15:30; Stop 09/22/17 at 19:31; Status DC Oxycodone HCl (Roxicodone) 5 mg Q4H PRN PO PAIN SCALE 1 TO 5; Start 09/22/17 at 15:30; Stop 09/22/17 at 19:31; Status DC Oxycodone HCl (Roxicodone) 10 mg Q4H PRN PO PAIN SCALE 6 TO 10 Last administered on 09/22/17 16:32; Start 09/22/17 at 15:30; Stop 09/22/17 at 19:31; Status DC Enalaprilat (Vasotec Inj) 1.25 mg Q8H PRN IV PUSH SBP>180, DBP>95; Start at 15:30 Ondansetron HCl (Zofran Inj) 4 mg Q6H PRN IV PUSH NAUSEA OR VOMITING; Start 09/22/17 at 15:30; Stop 09/22/17 at 19:29; Status DC Docusate Sodium (Colace) 100 mg BID PO ; Start 09/22/17 at 21:00; Stop 09/23/17 at 07:44; Status DC Magnesium Hydroxide (Milk Of Magnesia Liq) 30 ml BID PO Last administered on 09:22; Start 09/22/17 at 21:00 Famotidine (Pepcid) 20 mg BID PO Last administered on 09/25/17 09:00; Start 09/22/17 at 21:00 Methocarbamol (Robaxin) 500 mg Q8H PO Last administered on 09/25/17 09:21; Start 09/22/17 at 16:00 Lidocaine HCl (Lidoderm 5% Patch.12 Hr) 1 patch DAILY T-DERMAL Last administered on 09/25/17 09:23; Start 09/22/17 at 15:30 Acetaminophen 100 ml @ 400 mls/hr Q6H IV Last administered on 09/23/17at 22:32; Start 09/22/17 at 16:00; Stop 09/23/17 at 23:55; Status DC Miscellaneous Information 1 Q24H T-DERMAL Last administered on 09/24/17 20:12; Start 09/22/17 at 21:00 Gentamicin Sulfate (Gentamicin Inj) 240 mg STK-MED ONCE .ROUTE ; Start 09/22/17 at 16:32; Stop 09/22/17 at 16:33; Status DC Dextrose/Sodium Chloride 1,000 ml @ 100 mls/hr Q10H IV Last administered on 09/24/17at 22:42; Start 09/22/17 at 17:35 Miscellaneous Information (Post-op Orders (for Pharmacy)) STAT ONCE XX ; Start 09/22/17 at 17:45; Stop 09/22/17 at 19:35; Status DC Enoxaparin Sodium (Lovenox Inj) 40 mg Q24H SQ Last administered on 09/24/17 18: 19; Start 09/23/17 at 18:00; Stop 10/02/17 at 18:01 Senna/Docusate Sodium (Ileana-Colace) 1 tab BID PO Last administered on 09/25/17 09:21; Start 09/22/17 at 21:00 Magnesium Hydroxide (Milk Of Magnesia Liq) 10 ml Q12H PRN PO CONSTIPATION; Start 09/22/17 at 17:45; Stop 09/23/17 at 07:44; Status DC Cefazolin Sodium 1000 mg/Sodium Chloride 100 ml @ 200 mls/hr Q8H IV Last administered on 09/25/17 09:23; Start 09/23/17 at 02:00 Miscellaneous Information UNSCH PRN XX SEE LABEL COMMENTS; Start 09/22/17 at 17 :45 Miscellaneous Medication ([facility] Information) ONCE ONCE XX ; Start 09/22 at 17:45; Stop 09/22/17 at 19:35; Status DC Acetaminophen/ Hydrocodone Bitart ([place] 7.5-325 Mg) 1 tab Q4H PRN PO PAIN SCALE 3 TO 5 Last administered on 09/24/17 22:47; Start 09/22/17 at 17:45 Acetaminophen/ Hydrocodone Bitart ([place] 7.5-325 Mg) 2 tab Q6H PRN PO PAIN GREATER THAN/EQUAL TO 5 Last administered on 09/25/17 14:26; Start 09/22/17 at 17 :45 Morphine Sulfate (Morphine Inj) 5 mg Q3H PRN IV PUSH 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 Last administered on 09/25/17 03:12; Start 09/22/17 at 17:45 Ondansetron HCl (Zofran Inj) 4 mg Q4H PRN IVP NAUSEA OR VOMITING Last administered on 09/25/17 13:49; Start 09/22/17 at 17:45 Multivitamins/ Minerals Therapeutic (Theragran M Tab) 1 tab DAILY PO Last administered on 2/4/18at 09:21; Start 09/23/17 at 09:00 Diphenhydramine HCl (Benadryl) 25 mg Q6H PRN PO ITCHING; Start 09/22/17 at 17:45 Vancomycin HCl (Vancomycin Inj) 1,000 mg STK-MED ONCE .ROUTE Last administered on 09/22/17at 18:05; Start 09/22/17 at 17:44; Stop 09/22/17 at 17:45; Status DC Cefazolin Sodium/ Dextrose 50 ml @ As Directed STK-MED ONCE .ROUTE Last administered on 09/22/17at 17:50; Start 09/22/17 at 17:44; Stop 09/22/17 at 17:45; Status DC Fentanyl Citrate (fentaNYL INJ) 200 mcg STK-MED ONCE .ROUTE ; Start 09/22/17 at 18:54; Stop 09/22/17 at 18:55; Status DC Morphine Sulfate (*morphine INJ PERIprocedure ONLY) 8 mg STK-MED ONCE .ROUTE Last administered on 09/22/17at 19:57; Start 09/22/17 at 19:57; Stop 09/22/17 at 19: 58; Status DC Miscellaneous Information ALL NURSING DEPARTME... UNSCH PRN .XX SEE LABEL COMMENTS; Start 09/22/17 at 22:15; Stop 09/23/17 at 22:14; Status DC Acetaminophen (Tylenol) 500 mg Q6H PRN PO PAIN SCALE 1 TO 2 Last administered on 09/25/17at 09:21; Start 09/23/17 at 10:00 Cefazolin Sodium/ Dextrose 50 ml @ 100 mls/hr CELL CLEANER IV Last administered on 09/25/17at 11:34; Start 09/24/17 at 11:00; Stop 09/27/17 at 10:59 Lactated Ringer's 1,000 ml @ 30 mls/hr Q24H PRN IV SEE LABEL COMMENTS; Start at 04:00; Stop 09/28/17 at 03:59 Sodium Chloride 500 ml @ 30 mls/hr [id number] PRN IV SEE LABEL COMMENTS; Start 09/25/17 at 04:00; Stop 09/28/17 at 03:59 Metoprolol Tartrate (Lopressor) 25 mg CELL CLEANER PRN PO SEE LABEL COMMENTS; Start 09/25/17 at 04:00; Stop 09/28/17 at 03:59 Povidone Iodine (Betadine 5% Antisepsis Kit) 1 applic CELL CLEANER PRN EACH NARE SEE LABEL COMMENTS; Start 09/25/17 at 04:00; Stop 09/28/17 at 03:59 Chlorhexidine Gluconate (Chlorhexidine 2% Cloth) 3 pack CELL CLEANER PRN TOPICAL SEE LABEL COMMENTS; Start 09/25/17 at 04:00; Stop 09/28/17 at 03:59 Lactulose (Lactulose Liq) 30 ml DAILY PO Last administered on 09/25/17at 09:22; Start 09/25/17 at 09:00 Lidocaine/ Epinephrine (Xylocaine-Epi 1%-1:100,000 Inj) 50 ml STK-MED ONCE .ROUTE Last administered on 09/25/17at 10:29; Start 09/25/17 at 10:29; Stop at 10:30; Status DC Midazolam HCl (Versed Inj) 2 mg STK-MED ONCE .ROUTE ; Start 09/25/17 at 12:44; Stop 09/25/17 at 12:45; Status DC Fentanyl Citrate (fentaNYL INJ) 100 mcg STK-MED ONCE .ROUTE ; Start 09/25/17 at 12:44; Stop 09/25/17 at 12:45; Status DC Miscellaneous Information ALL NURSING DEPARTME... UNSCH PRN .XX SEE LABEL COMMENTS; Start 09/25/17 at 12:30; Stop 09/26/17 at 12:29 A/P Assessment and Plan Assessment and Plan 1. Status post traumatic fall with left hip fracture and left pubic ramus fracture status post op day #3 for left troch nail- continue postoperative care , pain control and physical therapy per orthopedic surgery 2. Abnormal CT of the chest and abdomen with findings of Enlarged bilateral axillary adenopathy and adenopathy in the upper abdomen concerning for lymphoma/ leukemia versus metastatic disease. -Patient has a insignificant past history with no recent abnormal review of systems symptoms. At this time, will obtain consultation with hematology to also review these films for further recommendations. SP LEFT AXILLARY NODE BIPOSIES 2-12-07 POD #0 3. Tobacco abuse- cessation counseling 4. DVT prophylaxis- Lovenox 5. SP LEFT AXILLARY NODE BIOPSIES 2-4-18 POD #0 INCREASE ACTIVITY PAIN CONTROL DW RN AND PT PT AND OT TO EVAL AND TREAT Discharge Planning AM Ernie Reed DO Sep 25, 2017 14:36
--- NOTE | 2017-09-25 15:49 | MP ---
cc: MD BEN,SORAYA DATE OF SURGERY: 09/25/2017. PREOPERATIVE DIAGNOSIS: 1. Lymphoma, probably non-Hodgkin's disease. 2. Lymphadenopathy. POSTOPERATIVE DIAGNOSIS: 1. Lymphoma, probably non-Hodgkin's disease. 2. Lymphadenopathy. OPERATIVE PROCEDURE PERFORMED: Left axillary lymph node excisional biopsy. SURGEON: Soraya Cat M.D. ANESTHESIA: General. ESTIMATED BLOOD LOSS: 10 cc. DESCRIPTION OF THE PROCEDURE IN DETAIL: The patient was prepped and draped in the usual sterile fashion. An oblique incision was made over the left axilla and deepened down. There was a huge lymph node in the axilla measuring about 2-1/2 inches in diameter. This one was excised and dissected with blunt and sharp dissection. Small venous tributaries were clipped with Liga clips, divided and ligated and then finally there was some tissue feeding the lymph node and this was clamped with hemostats, divided and tied off with 2-0 silk stick ties. The area was irrigated with copious amounts of saline. Meticulous hemostasis was obtained. The incision was closed with 0 Vicryl and 2-0 Vicryl. The skin was closed with 4-0 Monocryl. The patient tolerated the procedure well. Soraya MELTON/TEZ /3:01 PM /3:40 PM
[2017-09-25 16:00] VITALS: BP 127/79; PULSE 62; RESP 16; TEMP 96.9; O2SAT 95
[2017-09-25] MEDS: ENOXAPARIN SODIUM 40 MG/0.4 ML SYRINGE SQ SCH (17:13)
[2017-09-25 17:49] LABS: AMORPHOUS SEDIMENT, URINE RARE; BILIRUBIN, URINE NEG (NEG); BLOOD, URINE NEG (NEG); GLUCOSE,URINE 150 mg/dL (NEG); KETONE, URINE NEG (NEG); MUCUS URINE FEW /lpf (OCC); NITRITE,URINE NEG (NEG); PH, URINE 7.5 (5.0-8.5); SQUAMOUS EPITHELIAL CELL URINE <1 /hpf (0-5); URINE COLOR YELLOW (YELLW/STRAW); URINE LEUKOCYTE ESTERASE NEG (NEG)
[2017-09-25 20:00] VITALS: BP 136/73; PULSE 87; RESP 16; TEMP 98; O2SAT 95
[2017-09-25] MEDS: REMOVE OLD LIDOCAINE PATCH T-DERMAL SCH (20:46)
[2017-09-26] MEDS: ONDANSETRON HCL 4 MG/2 ML VIAL IVP PRN ×4 (03:30→20:08)
[2017-09-26] MEDS: ACETAMINOPHEN/HYDROcodone 325 MG/7.5 MG TAB PO PRN ×3 (03:56→16:40)
[2017-09-26 07:43] LABS: AUTOMATED NEUTROPHIL # 7.5 TH/MM3 (1.8-7.7); BASOPHIL % 0.2 % (0.0-2.0); EOSINOPHIL % 0.3 % (0.0-4.0); HEMATOCRIT 30.5 % (39.0-51.0); HEMOGLOBIN 10.4 GM/DL (13.0-17.0); LYMPH % 14.1 % (9.0-44.0); LYMPHOCYTE # 1.4 TH/MM3 (1.0-4.8); MEAN CELL VOLUME 84.5 FL (80.0-100.0); MEAN CORPUSCULAR HEMOGLOBIN 28.9 PG (27.0-34.0); MEAN CORPUSCULAR HGB CONC 34.2 % (32.0-36.0); MONO % 10.4 % (0.0-8.0); PLATELET COUNT 201 TH/MM3 (150-450); RED BLOOD COUNT 3.61 MIL/MM3 (4.50-5.90); RED CELL DISTRIBUTION WIDTH 15.6 % (11.6-17.2)
[2017-09-26 08:05] LABS: ALBUMIN 2.7 GM/DL (3.4-5.0); ALT (GPT) 27 U/L (12-78); AST (GOT) 23 U/L (15-37); BLOOD UREA NITROGEN 12 MG/DL (7-18); CALCIUM 8.2 MG/DL (8.5-10.1); CHLORIDE 103 MEQ/L (98-107); CREATININE 0.67 MG/DL (0.60-1.30); GLOMERULAR FILTRATION RATE 102 ML/MIN (>89); GLUCOSE,RANDOM 99 MG/DL (74-106); MAGNESIUM 2.2 MG/DL (1.5-2.5); SODIUM (NA) 138 MEQ/L (136-145)
[2017-09-26 08:08] LABS: ALKALINE PHOSPHATASE 67 U/L (45-117); PHOSPHORUS 3.3 MG/DL (2.5-4.9); TOTAL BILIRUBIN ADULT 0.6 MG/DL (0.2-1.0); TOTAL PROTEIN 6.1 GM/DL (6.4-8.2)
[2017-09-26] MEDS: METHOCARBAMOL 500 MG TAB PO SCH ×3 (08:09→23:21)
[2017-09-26] MEDS: MULTIVITAMINS/MINERALS THERAPEUTIC TAB PO SCH (08:09)
[2017-09-26] MEDS: FAMOTIDINE 20 MG TAB PO SCH ×2 (08:09→20:07)
[2017-09-26] MEDS: MAGNESIUM HYDROXIDE SUSP 30 ML CUP PO SCH ×2 (08:09→20:07)
[2017-09-26] MEDS: LACTULOSE SYRUP 20 GM/30 ML CUP PO SCH (08:09)
[2017-09-26] MEDS: DEXT 5%-NACL 0.45% 1000 ML INJ 1,000 ML IV SCH ×2 (08:09→19:38)
[2017-09-26] MEDS: DOCUSATE SODIUM 50 MG/SENNA 8.6 MG TAB PO SCH ×2 (08:09→20:07)
[2017-09-26] MEDS: LIDOCAINE HCL 5% PATCH T-DERMAL SCH (08:09)
[2017-09-26 08:10] VITALS: BP 136/84; PULSE 62; RESP 17; TEMP 98.3; O2SAT 97
[2017-09-26] MEDS: SODIUM CHLORIDE 0.9% FLUSH 10 ML FLUSH IV FLUSH PRN ×4 (08:10→16:44)
--- NOTE | 2017-09-26 12:00 | HHI.PR ---
Subjective Subjective Notes PTD: 5 Pt OOB in a chair. No distress noted. "I'm about as well as can be expected." "Can I get a colonoscopy? Can we order one?" "I want to be knocked out though." Objective Vitals/I&O Vital Signs Date Time Temp Pulse Resp B/P (MAP) Pulse Ox O2 Delivery O2 Flow Rate FiO2 09/26/17 08:10 98.3 62 17 136/84 (101) 97 09/25/17 12:57 Room Air 09/24/17 08:33 21 09/23/17 09:38 2.00 Labs Laboratory Tests Test 09/25/17 17:30 09/26/17 07:08 Urine Color YELLOW Urine Turbidity HAZY Urine pH 7.5 Urine Specific [place] 1.014 Urine Protein NEG Urine Glucose (UA) 150 Urine Ketones NEG Urine Occult Blood NEG Urine Nitrite NEG Urine Bilirubin NEG Urine Urobilinogen LESS THAN 2.0 Urine Leukocyte Esterase NEG Urine RBC 1 Urine Squamous Epithelial Cells <1 Urine Amorphous Sediment RARE Urine Mucus FEW Microscopic Urinalysis Comment CULT NOT INDICATED White Blood Count 10.0 Red Blood Count 3.61 Hemoglobin 10.4 Hematocrit 30.5 Mean Corpuscular Volume 84.5 Mean Corpuscular Hemoglobin 28.9 Mean Corpuscular Hemoglobin Concent 34.2 Red Cell Distribution Width 15.6 Platelet Count 201 Mean Platelet Volume 8.0 Neutrophils (%) (Auto) 75.0 Lymphocytes (%) (Auto) 14.1 Monocytes (%) (Auto) 10.4 Eosinophils (%) (Auto) 0.3 Basophils (%) (Auto) 0.2 Neutrophils # (Auto) 7.5 Lymphocytes # (Auto) 1.4 Monocytes # (Auto) 1.0 Eosinophils # (Auto) 0.0 Basophils # (Auto) 0.0 CBC Comment DIFF FINAL Differential Comment Blood Urea Nitrogen 12 Creatinine 0.67 Random Glucose 99 Total Protein 6.1 Albumin 2.7 Calcium Level 8.2 Phosphorus Level 3.3 Magnesium Level 2.2 Alkaline Phosphatase 67 Aspartate Amino Transf (AST/SGOT) 23 Alanine Aminotransferase (ALT/SGPT) 27 Total Bilirubin 0.6 Sodium Level 138 Potassium Level 4.5 Chloride Level 103 Carbon Dioxide Level 31.0 Anion Gap 4 Estimat Glomerular Filtration Rate 102 Narrative Exam GENERAL: This is a 62-year-old male OOB in a chair. No distress noted. SKIN: Warm and dry. HEAD: Atraumatic. Normocephalic. EYES: PERRLA ENT: No nasal bleeding or discharge. Mucous membranes pink and moist. NECK: Trachea midline. No JVD. CARDIOVASCULAR: Regular rate and rhythm. RESPIRATORY: No accessory muscle use. Lungs are clear to auscultation. Breath sounds equal bilaterally. No distress or dyspnea. GASTROINTESTINAL: BS + x 4 quads. Abdomen soft, non-tender, nondistended. MUSCULOSKELETAL: Extremities without cyanosis, or edema. + peripheral pulses x 4 extremities. Warm with good capillary refill and sensation. MAEW. NEUROLOGICAL: Awake and alert. Normal speech and pattern. A/P Problem List: (1) Fracture, intertrochanteric, left femur ICD Codes: S72.142A - Displaced intertrochanteric fracture of left femur, initial encounter for closed fracture Status: Acute (2) Fracture of left ischium ICD Codes: S32.602A - Unspecified fracture of left ischium, initial encounter for closed fracture Status: Acute (3) Pelvic hematoma in male ICD Codes: N50.1 - Vascular disorders of male genital organs Status: Acute (4) Fracture of left inferior pubic ramus ICD Codes: S32.592A - Other specified fracture of left pubis, initial encounter for closed fracture Status: Acute Assessment and Plan VIEJAS: This is a 62-year-old male who sustained a fall. He fell from a tree, approximately 10 feet. He landed on his left hip. No LOC. INJURIES: RIGHT rib fx (sub acute vs. chronic) LEFT ischium fx LEFT inferior pubic ramus fx (non-op) LEFT femoral intertrochanter fx Small pelvic hematoma Procedures: 09/22: LEFT troch nail 09/25: Lymph node Biopsy Consults: Orthopedics. Hospitalist. Hematology. GI. Case management. GI consulted per patient request. Pt is requesting a colonoscopy. GI will evaluate patient for need of colonoscopy. Diet: Regular diet. Tolerating po diet. Encourage good po intake with each meal. Pulmonary: Encourage good pulmonary toileting. IS and acapella at bedside and pt encouraged to use. Rationale for use explained to patient, and verbalized understanding. PAIN Management: [place] 7.5-15 mg q 4h. Morphine 5 mg q 3h. Robaxin 500 mg q 8h. Lidoderm patch. Activity: OOB. PT and OT ordered. (TTWB LLE) GI prophylaxis: Pepcid 20 mg BID po. Bowel regimen: Ileana - colace and MOM. Lactulose daily. LBM: 09/26. DVT prophylaxis: Mechanical VTE with SCDs. Chemical management with Lovenox 40 QD SQ. DC Planning: Case management consulted for assistance with final discharge disposition. PT recommends Rehab vs. [facility] PT. Pt states that he lives alone, however he could get a friend to stay with him while he recuperates. Pt is not a candidate for [facility], due to his [employer] insurance. Emotional support provided to patient at bedside and plan of care discussed. Discussed with RN at bedside. Discussed pt condition and plan of care with collaborating trauma surgeon. Patient is hemodynamically stable and being managed on the med/surg floor. The trauma team will round each day, and evaluate plan of care on a daily basis. RIGHT rib fx (sub acute vs. chronic) O2 as needed Aggressive pulmonary toileting Chest x-rays as needed Pain management PT and OT ordered Encourage out of bed LEFT ischium fx LEFT inferior pubic ramus fx (non-op) LEFT femoral intertrochanter fx Small pelvic hematoma Orthopedics consulted and assisting in management and care 09/22: Left troch nail Pain management PT and OT ordered TTWB LLE Encourage out of bed Lovenox for DVT prophylaxis Antibiotics per orthopedics Dressings per orthopedics H&H stable *Enlarged bilateral axillary adenopathy *Adenopathy in upper abdomen concerning for lymphoma/leukemia Hospitalist following pt Hematology consulted and assisting in management and care 09/25: Lymph node biopsy Awaiting results Remarks Patient seen and examined the nurse practitioner, continue current care, DVT prophylaxis, PT, hematology consult Problem Qualifiers (1) Fracture, intertrochanteric, left femur: Qualified Codes: S72.142A - Displaced intertrochanteric fracture of left femur , initial encounter for closed fracture (2) Fracture of left ischium: (3) Fracture of left inferior pubic ramus: Qualified Codes: S32.592A - Other specified fracture of left pubis, initial encounter for closed fracture Danielle Ames Sep 26, 2017 12:00 Ria De La Garza MD Sep 26, 2017 14:57
[2017-09-26 12:07] VITALS: BP 141/86; PULSE 80; RESP 18; TEMP 97.7; O2SAT 97
[2017-09-26] MEDS: ASCORBIC ACID 500 MG TAB PO SCH (12:08)
[2017-09-26] MEDS: ACETAMINOPHEN 500 MG CPLT PO PRN (12:08)
--- NOTE | 2017-09-26 12:57 | HHI.PR ---
Subjective Remarks in no acute distress. pain seems to be fairly controlled. has some dysuria. Objective Vitals Vital Signs Date Time Temp Pulse Resp B/P (MAP) Pulse Ox O2 Delivery O2 Flow Rate FiO2 09/26/17 12:07 97.7 80 18 141/86 (104) 97 09/26/17 08:10 98.3 62 17 136/84 (101) 97 09/25/17 20:00 98.0 87 16 136/73 (94) 95 09/25/17 16:00 96.9 62 16 127/79 (95) 95 09/25/17 13:30 96.5 64 16 147/75 (99) 94 09/25/17 12:57 66 14 142/84 (103) 93 Room Air I/O 09/25/17 09/25/17 09/25/17 09/26/17 09/26/17 09/26/17 07:00 15:00 23:00 07:00 15:00 23:00 Intake Total 581 ml 650 ml 400 ml 300 ml 894 ml Output Total 200 ml 10 ml 600 ml 700 ml Balance 381 ml 640 ml -200 ml -400 ml 894 ml Intake Oral 360 ml 400 ml 300 ml IV Total 221 ml 650 ml 894 ml Output Urine Total 200 ml 600 ml 700 ml Estimated Blood Loss 10 ml # Voids 1 # Bowel Movements 0 1 Result Diagram: 09/26/17 0708 09/26/17 0708 Imaging Last Impressions Chest X-Ray 09/25/17 0600 Signed Impressions: Service Date/Time: Monday, September 25, 2017 04:43 - CONCLUSION: No significant change has occurred. Kendall Borges MD Pelvis X-Ray 09/22/17 113 Signed Impressions: Service Date/Time: September 11:30 - CONCLUSION: Nondisplaced fractures suspected involving the pelvis as detailed above. Consider CT to further evaluate. Yaniv Alvarez Jr., MD Head CT 09/22/171129 Signed Impressions: Service Date/Time: September 11:42 - CONCLUSION: 1. No acute hemorrhage or mass effect. 2. Remote postsurgical changes with screw-plate fixation devices anterior maxilla. There is an apparent old left nasal bone fracture. Lalo Danielson MD Chest CT 2/1/18 1130 Signed Impressions: Service Date/Time: September 11:50 - CONCLUSION: 1. Enlarged bilateral axillary adenopathy and adenopathy in the upper abdomen concerning for lymphoma/leukemia versus metastatic disease. 2. No acute thoracic injury. 3. Large hiatal hernia. 4. Right lower lateral rib fracture appear subacute to chronic. Hong Damian MD Cervical Spine CT 09/22/17 1130 Signed Impressions: Service Date/Time: September 11:44 - CONCLUSION: 1. No fracture or dislocation. 2. Mild degenerative changes. Yaniv Alvarez Jr., MD Abdomen/Pelvis CT 09/22/17 1130 Signed Impressions: Service Date/Time: September 11:48 - CONCLUSION: 1. Acute fractures involving the left ischium, left inferior pubic ramus, and left intertrochanteric hip with small left pelvic hematoma. 2. Retroperitoneal adenopathy worrisome for a myeloproliferative disorder. 3. Tiny low-density lesions involving the liver likely related to cysts. Yaniv Alvarez Jr., MD Hip X-Ray 09/22/17 0000 Signed Impressions: Service Date/Time: September 18:15 - CONCLUSION: ORIF of left proximal femur fracture with hardware in good position. Steve Teague MD Femur X-Ray 09/22/17 0000 Signed Impressions: Service Date/Time: September 11:30 - CONCLUSION: 1. Comminuted left femoral intertrochanteric fracture. 2. Nondisplaced left inferior pubic ramus fracture. Vaughn Beltre MD Objective Remarks GENERAL: This is a well-nourished, well-developed patient, in no apparent distress. CARDIOVASCULAR: Regular rate and regular rhythm without murmurs, gallops, or rubs. RESPIRATORY: Clear to auscultation. Breath sounds equal bilaterally. No wheezes , rales, or rhonchi. GASTROINTESTINAL: Abdomen soft, non-tender, nondistended. Normal, active bowel sounds MUSCULOSKELETAL: Extremities without clubbing, cyanosis, or edema. NEURO: Alert & Oriented x4 to person, place, time, situation. Moves all ext x4 Procedures VANESSA SOARES DATE OF SURGERY: 09/22/2017 PREOPERATIVE DIAGNOSIS: Left intertrochanteric hip fracture. POSTOPERATIVE DIAGNOSIS: Left intertrochanteric hip fracture. OPERATIVE PROCEDURE PERFORMED: Trochanteric femoral nailing left intertrochanteric hip fracture. SURGEON: Dr. Vanessa Soares. MANAGER MORTGAGE: Chidi Lo ANESTHESIA General. ESTIMATED BLOOD LOSS: 100 cc. COMPLICATIONS: None. IMPLANTS USED: Synthes. JUSTIFICATION FOR THE PROCEDURE: This patient is a 62-year-old male who fell from a tree sustaining a left comminuted intertrochanteric femur fracture as well as left-sided pelvic rami fractures. He was taken to the [facility] Emergency Room. Orthopedic surgery was consulted. The patient was counselled as to the risks, benefits and alternatives to the above-named proposed surgical procedure and did wish to proceed with surgery. DESCRIPTION OF THE PROCEDURE IN DETAIL: Written consent was obtained. The patient was identified by name and taken to the operating room and placed in the supine position. General endotracheal anesthesia was administered as well as 2 grams of IV Ancef and 1 gram of IV Vancomycin. The left foot was placed in a padded traction boot. The right leg was placed in a padded well-leg askew. All bony prominences and pressure points were well-padded. The left hip and left lower extremity were prepped and draped using isopropyl alcohol, Hibiclens solution and Chloraprep solution. After a time out was performed, a longitudinal incision was made over the lateral aspect of the left hip. The fascial layer was incised. The guidewire was used to gain entrance into the intramedullary canal of the femur. This was followed by a cannulated entry reamer. Subsequently a Synthes trochanteric femoral nail was inserted into the intramedullary canal of the femur. The 130 degree locking jig was used to place a guide pin centered into the femoral head on the AP and lateral fluoroscopic projections. This was followed by placement of a 110 mm spiral blade. The top locking screw was secured to create a single sliding construct. Distally the locking jig was used to place a single lateral to medial transverse static locking screw. Fluoroscopic imaging again confirmed hardware placement and fracture reduction. The surgical wound was thoroughly irrigated with sterile saline solution. Fascial layer was closed with #1 Vicryl suture, the subcutaneous layer with 2-0 Vicryl suture. The skin was closed with Dermabond. Sterile dressing applied. The patient tolerated the procedure well. No intraoperative complications were noted. NOTE Dereck Urban, physician financial administrative assistant certified was present during the entire procedure to include patient positioning and the procedure itself. The medical necessity of a physician financial administrative assistant was indicated in this case due to the complexity of the procedure itself. He assisted with appropriate manipulation of the leg and also retraction of muscle, tendon, bone and neurovascular structures. He assisted with preparation of bone and also implantation of the prosthetic replacement. Vanessa Soares MD Medications and IVs Inpatient Medications Acetaminophen (Tylenol) 500 mg Q6H PRN PO PAIN SCALE 1 TO 2 Last administered on 09/26/17at 12:08; Start 09/23/17 at 10:00 Acetaminophen/ Hydrocodone Bitart ([place] 7.5-325 Mg) 2 tab Q6H PRN PO PAIN GREATER THAN/EQUAL TO 5 Last administered on 09/26/17at 08:23; Start 09/22/17 at 17 :45 Ascorbic Acid (Vitamin C) 500 mg DAILY PO Last administered on 09/26/17at 12:08; Start 09/26/17 at 12:15 Cefazolin Sodium 1000 mg/Sodium Chloride 100 ml @ 200 mls/hr Q8H IV Last administered on 09/26/17at 10:50; Start 09/23/17 at 02:00 Cefazolin Sodium/ Dextrose 50 ml @ 100 mls/hr ELECTRICIAN MARINE IV Last administered on 09/25/17at 11:34; Start 09/24/17 at 11:00; Stop 09/27/17 at 10:59 Chlorhexidine Gluconate (Chlorhexidine 2% Cloth) 3 pack ELECTRICIAN MARINE PRN TOPICAL SEE LABEL COMMENTS; Start 09/25/17 at 04:00; Stop 09/28/17 at 03:59 Dextrose/Sodium Chloride 1,000 ml @ 100 mls/hr Q10H IV Last administered on 09/24/17at 22:42; Start 09/22/17 at 17:35 Diphenhydramine HCl (Benadryl) 25 mg Q6H PRN PO ITCHING; Start 09/22/17 at 17:45 Docusate Sodium (Colace) 100 mg BID PO ; Start 09/22/17 at 21:00; Stop 09/23/17 at 07:44; Status DC Enalaprilat (Vasotec Inj) 1.25 mg Q8H PRN IV PUSH SBP>180, DBP>95; Start at 15:30 Enoxaparin Sodium (Lovenox Inj) 40 mg Q24H SQ Last administered on 09/25/17at 17: 13; Start 09/23/17 at 18:00; Stop 10/02/17 at 18:01 Famotidine (Pepcid) 20 mg BID PO Last administered on 09/26/17at 08:09; Start 09/22/17 at 21:00 Lactated Ringer's 1,000 ml @ 30 mls/hr Q24H PRN IV SEE LABEL COMMENTS; Start at 04:00; Stop 09/28/17 at 03:59 Lactulose (Lactulose Liq) 30 ml DAILY PO Last administered on 09/25/17at 09:22; Start 09/25/17 at 09:00 Lidocaine HCl (Lidoderm 5% Patch.12 Hr) 1 patch DAILY T-DERMAL Last administered on 09/26/17at 08:09; Start 09/22/17 at 15:30 Magnesium Hydroxide (Milk Of Magnesia Liq) 10 ml Q12H PRN PO CONSTIPATION; Start 09/22/17 at 17:45; Stop 09/23/17 at 07:44; Status DC Methocarbamol (Robaxin) 500 mg Q8H PO Last administered on 09/26/17at 08:09; Start 09/22/17 at 16:00 Metoprolol Tartrate (Lopressor) 25 mg ELECTRICIAN MARINE PRN PO SEE LABEL COMMENTS; Start 09/25/17 at 04:00; Stop 09/28/17 at 03:59 Miscellaneous Information ALL NURSING DEPARTME... UNSCH PRN .XX SEE LABEL COMMENTS; Start 09/25/17 at 12:30; Stop 09/26/17 at 12:29; Status DC Miscellaneous Information (Post-op Orders (for Pharmacy)) STAT ONCE XX ; Start 09/22/17 at 17:45; Stop 09/22/17 at 19:35; Status DC Miscellaneous Medication ([facility]) ONCE ONCE XX ; Start 09/22 at 17:45; Stop 09/22/17 at 19:35; Status DC Morphine Sulfate (Morphine Inj) 5 mg Q3H PRN IV PUSH Pain after MENTAL TELEPATHIST discontinued Last administered on 09/25/17at 03:12; Start 09/22/17 at 17:45 Multivitamins/ Minerals Therapeutic (Theragran M Tab) 1 tab DAILY PO Last administered on 09/26/17 08:09; Start 09/23/17 at 09:00 Ondansetron HCl (Zofran Inj) 4 mg Q4H PRN IVP NAUSEA OR VOMITING Last administered on 09/26/17at 08:10; Start 09/22/17 at 17:45 Oxycodone HCl (Roxicodone) 10 mg Q4H PRN PO PAIN SCALE 6 TO 10 Last administered on 09/22/17at 16:32; Start 09/22/17 at 15:30; Stop 09/22/17 at 19:31; Status DC Povidone Iodine (Betadine 5% Antisepsis Kit) 1 applic ELECTRICIAN MARINE PRN EACH NARE SEE LABEL COMMENTS; Start 09/25/17 at 04:00; Stop 09/28/17 at 03:59 Senna/Docusate Sodium (Ileana-Colace) 1 tab BID PO Last administered on 09/25/17at 09:21; Start 09/22/17 at 21:00 Sodium Chloride 500 ml @ 30 mls/hr [id number] PRN IV SEE LABEL COMMENTS; Start 09/25/17 at 04:00; Stop 09/28/17 at 03:59 Sodium Chloride (NS Flush) 2 ml UNSCH PRN IV FLUSH FLUSH AFTER USING IV ACCESS Last administered on 09/26/17at 10:50; Start 09/22/17 at 15:30 A/P Assessment and Plan 1. Status post traumatic fall with left hip fracture and left pubic ramus fracture status post op day #3 for left troch nail- continue postoperative care , pain control and physical therapy per orthopedic surgery 2. Abnormal CT of the chest and abdomen with findings of Enlarged bilateral axillary adenopathy and adenopathy in the upper abdomen concerning for lymphoma/ leukemia versus metastatic disease. -Patient has a insignificant past history with no recent abnormal review of systems symptoms. s/p left axillary note excisional biopsy- awaiting the pathology- hematology following. 3. Tobacco abuse- cessation counseling 4. dysuria-- UA not impressive. 5. DVT prophylaxis- Pete Reeves MD Sep 26, 2017 12:57
--- NOTE | 2017-09-26 13:15 | PD.CONS ---
HPI History of Present Illness This is a 89 year old male appears age 50-60 who was brought to [facility] as a trauma alert after falling out of the tree. He is s/p repair hip fracture. A CT scan showed retroperitoneal lymphadenopathy concerning for a myeloproliferative disorder. The pt has never had EGD or colonoscopy and is requesting one. He denies abd pain, weight loss, blood in stool, black tarry stool, n/v. Aside from mental illness he denies any significant PMH. (Desirae Stein) PFSH Past Medical History per pt: anxiety, depression, bipolar, "a little" schizophrenia self medicates with weekly marijuana Past Surgical History appendectomy repair hip fracture (Desirae Stein) Coded Allergies: codeine (Verified Allergy, Severe, violently ill, 09/22/17) Family History lung ca prostate ca Social History no etoh weekly marijuana smokes 1/2 ppd (Desirae Stein) Review of Systems Constitutional: DENIES: Weight loss Eyes: DENIES: Blurred vision Ears, nose, mouth, throat: DENIES: Hearing loss Respiratory: DENIES: Cough Cardiovascular: DENIES: Chest pain Gastrointestinal: DENIES: Abdominal pain, Black stools, Bloody stools, Constipation, Diarrhea, Nausea, Vomiting, Hematemesis Genitourinary: DENIES: Urinary incontinence Musculoskeletal: DENIES: Joint pain Integumentary: COMPLAINS OF: Jaundice Hematologic/lymphatic: DENIES: Bruising Immunologic/allergic: DENIES: Eczema Neurologic: DENIES: Abnormal gait Psychiatric: DENIES: Anxiety (Desirae Stein) GI Exam Vitals I&O Vital Signs Date Time Temp Pulse Resp B/P (MAP) Pulse Ox O2 Delivery O2 Flow Rate FiO2 09/26/17 12:07 97.7 80 18 141/86 (104) 97 09/26/17 08:10 98.3 62 17 136/84 (101) 97 09/25/17 20:00 98.0 87 16 136/73 (94) 95 09/25/17 16:00 96.9 62 16 127/79 (95) 95 09/25/17 13:30 96.5 64 16 147/75 (99) 94 09/25/17 12:57 66 14 142/84 (103) 93 Room Air I/O 09/25/17 09/25/17 09/25/17 09/26/17 09/26/17 09/26/17 07:00 15:00 23:00 07:00 15:00 23:00 Intake Total 581 ml 650 ml 400 ml 300 ml 894 ml Output Total 200 ml 10 ml 600 ml 700 ml Balance 381 ml 640 ml -200 ml -400 ml 894 ml Intake Oral 360 ml 400 ml 300 ml IV Total 221 ml 650 ml 894 ml Output Urine Total 200 ml 600 ml 700 ml Estimated Blood Loss 10 ml # Voids 1 # Bowel Movements 0 1 Imaging Last Impressions Chest X-Ray 09/25/17 0600 Signed Impressions: Service Date/Time: Monday, September 25, 2017 04:43 - CONCLUSION: No significant change has occurred. Kendall Borges MD Pelvis X-Ray 09/22/171129 Signed Impressions: Service Date/Time: September 11:30 - CONCLUSION: Nondisplaced fractures suspected involving the pelvis as detailed above. Consider CT to further evaluate. Yaniv Alvarez Jr., MD Head CT 09/22/171129 Signed Impressions: Service Date/Time: September 11:42 - CONCLUSION: 1. No acute hemorrhage or mass effect. 2. Remote postsurgical changes with screw-plate fixation devices anterior maxilla. There is an apparent old left nasal bone fracture. Lalo Danielson MD Chest CT 09/22/171129 Signed Impressions: Service Date/Time: September 11:50 - CONCLUSION: 1. Enlarged bilateral axillary adenopathy and adenopathy in the upper abdomen concerning for lymphoma/leukemia versus metastatic disease. 2. No acute thoracic injury. 3. Large hiatal hernia. 4. Right lower lateral rib fracture appear subacute to chronic. Hong Damian MD Cervical Spine CT 09/22/171129 Signed Impressions: Service Date/Time: September 11:44 - CONCLUSION: 1. No fracture or dislocation. 2. Mild degenerative changes. Yaniv Alvarez Jr., MD Abdomen/Pelvis CT 09/22/171129 Signed Impressions: Service Date/Time: September 11:48 - CONCLUSION: 1. Acute fractures involving the left ischium, left inferior pubic ramus, and left intertrochanteric hip with small left pelvic hematoma. 2. Retroperitoneal adenopathy worrisome for a myeloproliferative disorder. 3. Tiny low-density lesions involving the liver likely related to cysts. Yaniv Alvarez Jr., MD Hip X-Ray 09/22/17 0000 Signed Impressions: Service Date/Time: September 18:15 - CONCLUSION: ORIF of left proximal femur fracture with hardware in good position. Steve Teague MD Femur X-Ray 09/22/17 0000 Signed Impressions: Service Date/Time: September 11:30 - CONCLUSION: 1. Comminuted left femoral intertrochanteric fracture. 2. Nondisplaced left inferior pubic ramus fracture. Vaughn Beltre MD Laboratory Test 09/25/17 17:30 09/26/17 07:08 Urine Color YELLOW Urine Turbidity HAZY Urine pH 7.5 Urine Specific [place] 1.014 Urine Protein NEG mg/dL Urine Glucose (UA) 150 mg/dL Urine Ketones NEG mg/dL Urine Occult Blood NEG Urine Nitrite NEG Urine Bilirubin NEG Urine Urobilinogen LESS THAN 2.0 MG/DL Urine Leukocyte Esterase NEG Urine RBC 1 /hpf Urine Squamous Epithelial Cells <1 /hpf Urine Amorphous Sediment RARE Urine Mucus FEW /lpf Microscopic Urinalysis Comment CULT NOT INDICATED White Blood Count 10.0 TH/MM3 Red Blood Count 3.61 MIL/MM3 Hemoglobin 10.4 GM/DL Hematocrit 30.5 % Mean Corpuscular Volume 84.5 FL Mean Corpuscular Hemoglobin 28.9 PG Mean Corpuscular Hemoglobin Concent 34.2 % Red Cell Distribution Width 15.6 % Platelet Count 201 TH/MM3 Mean Platelet Volume 8.0 FL Neutrophils (%) (Auto) 75.0 % Lymphocytes (%) (Auto) 14.1 % Monocytes (%) (Auto) 10.4 % Eosinophils (%) (Auto) 0.3 % Basophils (%) (Auto) 0.2 % Neutrophils # (Auto) 7.5 TH/MM3 Lymphocytes # (Auto) 1.4 TH/MM3 Monocytes # (Auto) 1.0 TH/MM3 Eosinophils # (Auto) 0.0 TH/MM3 Basophils # (Auto) 0.0 TH/MM3 CBC Comment DIFF FINAL Differential Comment Blood Urea Nitrogen 12 MG/DL Creatinine 0.67 MG/DL Random Glucose 99 MG/DL Total Protein 6.1 GM/DL Albumin 2.7 GM/DL Calcium Level 8.2 MG/DL Phosphorus Level 3.3 MG/DL Magnesium Level 2.2 MG/DL Alkaline Phosphatase 67 U/L Aspartate Amino Transf (AST/SGOT) 23 U/L Alanine Aminotransferase (ALT/SGPT) 27 U/L Total Bilirubin 0.6 MG/DL Sodium Level 138 MEQ/L Potassium Level 4.5 MEQ/L Chloride Level 103 MEQ/L Carbon Dioxide Level 31.0 MEQ/L Anion Gap 4 MEQ/L Estimat Glomerular Filtration Rate 102 ML/MIN Physical Examination HEENT: PERRL; normocephalic; atraumatic; no jaundice. CHEST: CTA CARDIAC: RRR ABDOMEN: Soft, nondistended, nontender; no hepatosplenomegaly; bowel sounds are present in all four quadrants. EXTREMITIES: No clubbing, cyanosis, or edema. SKIN: Normal; no rash; no jaundice. HOTEL GENERAL MANAGER: No focal deficits; alert and oriented times three. (Desirae Stein) Assessment and Plan Plan ASSESSMENT - abnormal CT finding - CT 09/22/17 showed retroperitoneal lymphadenopathy concerning for myeloproliferative disorder. Pt denies any GI sx but has never had colonoscopy or EGD. will do EGD and colonoscopy r/o lymphoma - anemia - mild, s/p repair hip fracture could be d/t surgery PLAN - EGD and colonoscopy - obtain consent - clear liquids - NPO after midnight - GoLytely prep - monitor labs - supportive care - further recs to follow pt seen by myself and Dr Ibanez and this note is written on her behalf (Desirae Stein) Physician Comments seen, examined agree with above egd/colon in am (Kelsy Ibanez MD) Desirae Stein Sep 26, 2017 13:15 Kelsy Ibanez MD Sep 26, 2017 15:59
[2017-09-26] MEDS ORDERED: THERM PO (14:15)
[2017-09-26] MEDS ORDERED: ASCO500 PO (14:15)
--- NOTE | 2017-09-26 14:32 | PD.ONC.PN ---
Subjective Subjective Remarks c/o discomfort at left armpit bx site. Objective Data Date Time Temp Pulse Resp B/P (MAP) Pulse Ox O2 Delivery O2 Flow Rate FiO2 09/26/17 12:07 97.7 80 18 141/86 (104) 97 09/26/17 08:10 98.3 62 17 136/84 (101) 97 09/25/17 20:00 98.0 87 16 136/73 (94) 95 09/25/17 16:00 96.9 62 16 127/79 (95) 95 09/26/17 09/26/17 09/26/17 07:00 15:00 23:00 Intake Total 300 ml 894 ml Output Total 700 ml Balance -400 ml 894 ml Result Diagram: 09/26/1708 09/26/17707 Laboratory Results Laboratory Tests Test 09/25/17 17:30 09/26/17 07:08 Urine Color YELLOW Urine Turbidity HAZY Urine pH 7.5 Urine Specific [place] 1.014 Urine Protein NEG mg/dL Urine Glucose (UA) 150 mg/dL Urine Ketones NEG mg/dL Urine Occult Blood NEG Urine Nitrite NEG Urine Bilirubin NEG Urine Urobilinogen LESS THAN 2.0 MG/DL Urine Leukocyte Esterase NEG Urine RBC 1 /hpf Urine Squamous Epithelial Cells <1 /hpf Urine Amorphous Sediment RARE Urine Mucus FEW /lpf Microscopic Urinalysis Comment CULT NOT INDICATED White Blood Count 10.0 TH/MM3 Red Blood Count 3.61 MIL/MM3 Hemoglobin 10.4 GM/DL Hematocrit 30.5 % Mean Corpuscular Volume 84.5 FL Mean Corpuscular Hemoglobin 28.9 PG Mean Corpuscular Hemoglobin Concent 34.2 % Red Cell Distribution Width 15.6 % Platelet Count 201 TH/MM3 Mean Platelet Volume 8.0 FL Neutrophils (%) (Auto) 75.0 % Lymphocytes (%) (Auto) 14.1 % Monocytes (%) (Auto) 10.4 % Eosinophils (%) (Auto) 0.3 % Basophils (%) (Auto) 0.2 % Neutrophils # (Auto) 7.5 TH/MM3 Lymphocytes # (Auto) 1.4 TH/MM3 Monocytes # (Auto) 1.0 TH/MM3 Eosinophils # (Auto) 0.0 TH/MM3 Basophils # (Auto) 0.0 TH/MM3 CBC Comment DIFF FINAL Differential Comment Blood Urea Nitrogen 12 MG/DL Creatinine 0.67 MG/DL Random Glucose 99 MG/DL Total Protein 6.1 GM/DL Albumin 2.7 GM/DL Calcium Level 8.2 MG/DL Phosphorus Level 3.3 MG/DL Magnesium Level 2.2 MG/DL Alkaline Phosphatase 67 U/L Aspartate Amino Transf (AST/SGOT) 23 U/L Alanine Aminotransferase (ALT/SGPT) 27 U/L Total Bilirubin 0.6 MG/DL Sodium Level 138 MEQ/L Potassium Level 4.5 MEQ/L Chloride Level 103 MEQ/L Carbon Dioxide Level 31.0 MEQ/L Anion Gap 4 MEQ/L Estimat Glomerular Filtration Rate 102 ML/MIN Administered Medications Medications (Trade) Dose Ordered Sig/Fiona Route PRN Reason Start Time Stop Time Status Last Admin Dose Admin Sodium Chloride (NS Flush) 2 ml UNSCH PRN IV FLUSH FLUSH AFTER USING IV ACCESS 09/22/17 15:30 09/26/17 10:50 Magnesium Hydroxide (Milk Of Magnraine Liq) 30 ml BID PO 09/22/17 21:00 09/25/17 09:22 Famotidine (Pepcid) 20 mg BID PO 09/22/17 21:00 09/26/17 08:09 Methocarbamol (Robaxin) 500 mg Q8H PO 09/22/17 16:00 09/26/17 08:09 Lidocaine HCl (Lidoderm 5% Patch.12 Hr) 1 patch DAILY T-DERMAL 09/22/17 15:30 09/26/17 08:09 Miscellaneous Information 1 Q24H T-DERMAL 09/22/17 21:00 09/25/17 20:46 Dextrose/Sodium Chloride 1,000 ml @ 100 mls/hr Q10H IV 09/22/17 17:35 09/24/17 22:42 Enoxaparin Sodium (Lovenox Inj) 40 mg Q24H SQ 09/23/17 18:00 10/02/17 18:01 09/25/17 17:13 Senna/Docusate Sodium (Ileana-Colace) 1 tab BID PO 09/22/17 21:00 09/25/17 09:21 Cefazolin Sodium 1000 mg/Sodium Chloride 100 ml @ 200 mls/hr Q8H IV 09/23/17 02:00 09/26/17 10:50 Acetaminophen/ Hydrocodone Bitart ([place] 7.5-325 Mg) 1 tab Q4H PRN PO PAIN SCALE 3 TO 5 09/22/17 17:45 09/26/17 03:56 Acetaminophen/ Hydrocodone Bitart ([place] 7.5-325 Mg) 2 tab Q6H PRN PO PAIN GREATER THAN/EQUAL TO 5 09/22/17 17:45 09/26/17 08:23 Morphine Sulfate (Morphine Inj) 5 mg Q3H PRN IV PUSH Pain after TELEGRAPH PRINTER 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 discontinued 09/22/17 17:45 09/25/17 03:12 Ondansetron HCl (Zofran Inj) 4 mg Q4H PRN IVP NAUSEA OR VOMITING 09/22/17 17:45 09/26/17 08:10 Multivitamins/ Minerals Therapeutic (Theragran M Tab) 1 tab DAILY PO 09/23/17 09:00 09/26/17 08:09 Acetaminophen (Tylenol) 500 mg Q6H PRN PO PAIN SCALE 1 TO 2 09/23/17 10:00 09/26/17 12:08 Cefazolin Sodium/ Dextrose 50 ml @ 100 mls/hr SWAT TEAM MEMBER IV 09/24/17 11:00 09/27/17 10:59 09/25/17 11:34 Lactulose (Lactulose Liq) 30 ml DAILY PO 09/25/17 09:00 09/25/17 09:22 Ascorbic Acid (Vitamin C) 500 mg DAILY PO 09/26/17 12:15 09/26/17 12:08 Objective Remarks GENERAL: Well-nourished, well-developed patient. SKIN: Warm and dry. HEAD: Normocephalic. EYES: No scleral icterus. No injection or drainage. NECK: Supple, trachea midline. No JVD or lymphadenopathy. LYMPHATIC: ++ adenopathy. CARDIOVASCULAR: Regular rate and rhythm without murmurs. RESPIRATORY: Breath sounds equal bilaterally. No accessory muscle use. GASTROINTESTINAL: Abdomen soft, non-tender, nondistended. EXTREMITIES: No cyanosis, or edema. MUSCULOSKELETAL: Adequate muscle tone. NEUROLOGICAL: No obvious focal deficit. Awake, alert, and oriented x3. . Assessment/Plan Problem List: (1) Lymphadenopathy ICD Codes: R59.1 - Generalized enlarged lymph nodes Plan: 2/5 S/P bx of LN yesterday. await result. It will take 5-7 days to get the result back Pt can be d/c to home . Appt to see me next week at office to go over the result of the bx. Pt is requesting walker. Consult CM to arrange it. 09/25: axillary biopsy today. await pathology --most likely consistent with lymphoma until proven otherwise. --HIV pending --LDH elevated. --CT c/a/p: shows bilateral axillary lymph adenopathy + retroperitoneal LAD; however, there is no mediastinal or hilar lymphadenopathy noted. --no B symptoms, ie.e fever, night sweats or weight loss. (2) Fracture of left inferior pubic ramus ICD Codes: S32.592A - Other specified fracture of left pubis, initial encounter for closed fracture Status: Acute (3) Fracture, intertrochanteric, left femur ICD Codes: S72.142A - Displaced intertrochanteric fracture of left femur, initial encounter for closed fracture Status: Acute Assessment 62y/o male admitted s/p left hip fracture. hematology consulted for incidentally found lymphadenopathy. Problem Qualifiers (1) Fracture of left inferior pubic ramus: Qualified Codes: S32.592A - Other specified fracture of left pubis, initial encounter for closed fracture (2) Fracture, intertrochanteric, left femur: Qualified Codes: S72.142A - Displaced intertrochanteric fracture of left femur , initial encounter for closed fracture Eric Torres MD Sep 26, 2017 14:31
[2017-09-26] MEDS ORDERED: PEG (High)/E-LYTE SOLN 4000 ML BTL PO ONE (16:00)
[2017-09-26 16:37] VITALS: BP 140/85; PULSE 74; RESP 18; TEMP 96.6; O2SAT 98
[2017-09-26] MEDS: ENOXAPARIN SODIUM 40 MG/0.4 ML SYRINGE SQ SCH (16:45)
[2017-09-26] MEDS: REMOVE OLD LIDOCAINE PATCH T-DERMAL SCH (20:08)
[2017-09-26] MEDS: MORPHINE SULFATE 4 MG/ML INJ IV PUSH PRN (21:27)
[2017-09-26 21:30] VITALS: BP 132/78; PULSE 71; RESP 17; TEMP 98; O2SAT 97
[2017-09-26 23:30] VITALS: BP 130/78; PULSE 63; RESP 17; TEMP 97.8; O2SAT 95
[2017-09-27] MEDS: ACETAMINOPHEN/HYDROcodone 325 MG/7.5 MG TAB PO PRN ×4 (01:16→21:33)
[2017-09-27 04:10] VITALS: BP 126/75; PULSE 59; RESP 17; TEMP 96.8; O2SAT 95
[2017-09-27] MEDS: ONDANSETRON HCL 4 MG/2 ML VIAL IVP PRN ×3 (06:46→20:28)
[2017-09-27] MEDS: DEXT 5%-NACL 0.45% 1000 ML INJ 1,000 ML IV SCH (07:35)
[2017-09-27] MEDS: LIDOCAINE HCL 5% PATCH T-DERMAL SCH (07:52)
[2017-09-27] MEDS: MULTIVITAMINS/MINERALS THERAPEUTIC TAB PO SCH (07:53)
[2017-09-27] MEDS: FAMOTIDINE 20 MG TAB PO SCH ×2 (07:53→20:27)
[2017-09-27] MEDS: METHOCARBAMOL 500 MG TAB PO SCH ×2 (07:53→14:01)
[2017-09-27] MEDS: ASCORBIC ACID 500 MG TAB PO SCH (07:53)
[2017-09-27] MEDS: DOCUSATE SODIUM 50 MG/SENNA 8.6 MG TAB PO SCH ×2 (07:53→20:27)
--- NOTE | 2017-09-27 07:55 | HHI.FF ---
Face to Face Verification Diagnosis: (1) Pelvic hematoma in male (2) Lymphadenopathy (3) Fracture, intertrochanteric, left femur (4) Fracture of left ischium (5) Fracture of left inferior pubic ramus Physical Therapy Order: Evaluate and Treat, Improve ambulation, Strength and gait training Home Health Nursing Order: Medical education Signs/symptoms of disease process Medication education-adverse effect Nursing assessment with vital signs I have seen patient Tho [id number] on 09/27/17. My clinical findings support the need for the requested home health care services because: Ltd mobility - disease progression Deconditioned w/ increased weakness Limited ability to care for self High risk of falls Infection w/ risk of complications I certify that my clinical findings support that this patient is homebound because: Post-op weakness Unsteady gait/balance Unsafe to leave home unassisted [id number] bed/chair Unable to use public transportation Danielle Ames Sep 27, 2017 07:55
[2017-09-27] MEDS: LACTULOSE SYRUP 20 GM/30 ML CUP PO SCH (07:58)
[2017-09-27] MEDS: MAGNESIUM HYDROXIDE SUSP 30 ML CUP PO SCH ×2 (07:58→20:27)
[2017-09-27 08:00] VITALS: BP 110/73; PULSE 69; RESP 18; TEMP 97; O2SAT 99
--- NOTE | 2017-09-27 10:29 | GIPROC ---
[facility] [address] [facility]. [facility], [address] EGD PROCEDURE REPORT EXAM DATE: 09/27/2017 PATIENT NAME: Tho Villegas MR #: [id number] BIRTHDATE: 08/22/1879 ATTENDING: Kesly Ibanez MD ORDER #: [id number] RACKET STRINGER: Liana Hamilton and Nadia Livingston STATUS: inpatient INDICATIONS: The patient is a 89 yr old male here for an EGD due to anemia , abnormal ct PROCEDURE PERFORMED: EGD w/ biopsy MEDICATIONS: None and Per Anesthesia. TOPICAL ANESTHETIC: none CONSENT: The patient understands the risks and benefits of the procedure and understands that these risks include, but are not limited to: sedation, allergic reaction, infection, perforation and/or bleeding. Alternative means of evaluation and treatment include, among others: physical exam, x-rays, and/or surgical intervention. The patient elects to proceed with this endoscopic procedure. medical equipment was checked for proper function. Hand hygiene and appropriate measures for infection prevention was taken. After the risks, benefits and alternatives of the procedure were thoroughly explained, Informed consent was verified, confirmed and timeout was successfully executed by the treatment team. The patient was anesthetized with topical anesthesia and the EC-[id number] (Pedi C) endoscope was introduced through the mouth and advanced to the second portion of the duodenum. Retroflexed views revealed a hiatal hernia The gastroscope was then slowly withdrawn and removed. Duodenum normal-biopsy gastritis antrum-biopsy large hiatal hernia. ADVERSE EVENTS: There were no complications. IMPRESSIONS: 1. Duodenum normal-biopsy gastritis antrum-biopsy large hiatal hernia 2. Retroflexed views revealed a hiatal hernia RECOMMENDATIONS: 1. Await biopsy results. Biopsy results will not be ready for 7-10 days. If you don't hear from us in two weeks, call our office for biopsy results. 2. Anti-reflux regimen 3. Continue PPI PATIENT CONDITION: stable DISPOSITION: Inpatient REPEAT EXAM: Return 3 years EGD Kelsy Ibanez MD eSigned: Kelsy Ibanez MD 09/27/2017 10:28 AM cc: PATIENT NAME: Tho Villegas MR#: [id number]
--- NOTE | 2017-09-27 10:31 | GIPROC ---
[facility] [address] [facility]. [facility], [address] COLONOSCOPY PROCEDURE REPORT EXAM DATE: 09/27/2017 PATIENT NAME: Tho Villegas MR #: [id number] BIRTHDATE: 08/22/1879 ENDOSCOPIST: Kelsy Ibanez MD ORDER #: [id number] PROJECT MANAGEMENT INSTRUCTOR: Liana Hamilton and Nadia Livingston STATUS: inpatient INDICATIONS: The patient is a 89 yr old male here for a colonoscopy due to anemia , abnormal ct PROCEDURE PERFORMED: Colonoscopy with biopsy MEDICATIONS: None and Per Anesthesia. PREP QUALITY: fair PREP TYPE:Other: ESTIMATED BLOOD LOSS: None CONSENT: The patient understands the risks and benefits of the procedure and understands that these risks include, but are not limited to: sedation, allergic reaction, infection, perforation and/or bleeding. Alternative means of evaluation and treatment include, among others: physical exam, x-rays, and/or surgical intervention. The patient elects to proceed with this endoscopic procedure. medical equipment was checked for proper function. Hand hygiene and appropriate measures for infection prevention was taken. After the risks, benefits and alternatives of the procedure were thoroughly explained, Informed consent was verified, confirmed and timeout was successfully executed by the treatment team. A digital exam revealed external hemorrhoids The Pentax EC-[id number] endoscope was introduced through the anus and advanced to the cecum, which was identified by both the appendix and ileocecal valve. The instrument was then slowly withdrawn as the colon was fully examined. COLON FINDINGS: Diverticulosis sigmoiod,descending diminutive polyp rectum-biopsy. Retroflexed views revealed internal hemorrhoids and Retroflexed views revealed small internal hemorrhoids The scope was then completely withdrawn from the patient and the procedure terminated. PROCEDURE WITHDRAWAL TIME:6minutes ADVERSE EVENTS: There were no complications. IMPRESSIONS: 1. Diverticulosis sigmoiod,descending diminutive polyp rectum-biopsy 2. Retroflexed views revealed internal hemorrhoids 3. Retroflexed views revealed small internal hemorrhoids 4. Revealed external hemorrhoids RECOMMENDATIONS: 1. Await biopsy results. Biopsy results will not be ready for 7-10 days. If you don't hear from us in two weeks, call our office for results. 2. Benefiber 2 tsp daily 3. Probiotics from any [facility] or health food store RECALL: Return 5 years Colonoscopy Kelsy Ibanez MD eSigned: Kelsy Ibanez MD 09/27/2017 10:30 AM cc:
--- NOTE | 2017-09-27 11:15 | HHI.PR ---
Subjective Subjective Notes PTD: 5 1030: In GI lab for colonoscopy. 1430: No complaints offered. Objective Vitals/I&O Vital Signs Date Time Temp Pulse Resp B/P (MAP) Pulse Ox O2 Delivery O2 Flow Rate FiO2 09/27/17 10:15 96.8 60 18 123/74 (90) 100 Room Air 09/24/17 08:33 21 09/23/17 09:38 2.00 Narrative Exam GENERAL: This is a 62-year-old male lying in bed. No distress noted. SKIN: Warm and dry. HEAD: Atraumatic. Normocephalic. EYES: PERRLA ENT: No nasal bleeding or discharge. Mucous membranes pink and moist. NECK: Trachea midline. No JVD. CARDIOVASCULAR: Regular rate and rhythm. RESPIRATORY: No accessory muscle use. Lungs are clear to auscultation. Breath sounds equal bilaterally. No distress or dyspnea. GASTROINTESTINAL: BS + x 4 quads. Abdomen soft, non-tender, nondistended. MUSCULOSKELETAL: Extremities without cyanosis, or edema. + peripheral pulses x 4 extremities. Warm with good capillary refill and sensation. MAEW. NEUROLOGICAL: Awake and alert. Normal speech and pattern. A/P Problem List: (1) Fracture, intertrochanteric, left femur ICD Codes: S72.142A - Displaced intertrochanteric fracture of left femur, initial encounter for closed fracture Status: Acute (2) Fracture of left ischium ICD Codes: S32.602A - Unspecified fracture of left ischium, initial encounter for closed fracture Status: Acute (3) Pelvic hematoma in male ICD Codes: N50.1 - Vascular disorders of male genital organs Status: Acute (4) Fracture of left inferior pubic ramus ICD Codes: S32.592A - Other specified fracture of left pubis, initial encounter for closed fracture Status: Acute Assessment and Plan [place]: This is a 62-year-old male who sustained a fall. He fell from a tree, approximately 10 feet. He landed on his left hip. No LOC. INJURIES: RIGHT rib fx (sub acute vs. chronic) LEFT ischium fx LEFT inferior pubic ramus fx (non-op) LEFT femoral intertrochanter fx Small pelvic hematoma Procedures: 09/22: LEFT troch nail 09/25: Lymph node Biopsy 09/27: Colonoscopy Consults: Orthopedics. Hospitalist. Hematology. GI. Case management. GI consulted. Colonoscopy today. Gastritis, Diverticulitis and hemorrhoids. Biopsy taken. No results for 7-10 days. To follow up with GI outpatient. Diet: Regular diet. Tolerating po diet. Encourage good po intake with each meal. Pulmonary: Encourage good pulmonary toileting. IS and acapella at bedside and pt encouraged to use. Rationale for use explained to patient, and verbalized understanding. PAIN Management: [place] 7.5-15 mg q 4h. Morphine 5 mg q 3h. Robaxin 500 mg q 8h. Lidoderm patch. Activity: OOB. PT and OT ordered. (TTWB LLE) GI prophylaxis: Pepcid 20 mg BID po. Bowel regimen: Ileana - colace and MOM. Lactulose daily. LBM: 09/27. DVT prophylaxis: Mechanical VTE with SCDs. Chemical management with Lovenox 40 QD SQ. DC Planning: Case management consulted for assistance with final discharge disposition. PT recommends Rehab vs. [facility] PT. Pt states that he lives alone, however he could get a friend to stay with him while he recuperates. Pt is not a candidate for [place], due to his [employer] insurance. Emotional support provided to patient at bedside and plan of care discussed. Discussed with RN at bedside. Discussed pt condition and plan of care with collaborating trauma surgeon. Patient is hemodynamically stable and being managed on the med/surg floor. The trauma team will round each day, and evaluate plan of care on a daily basis. RIGHT rib fx (sub acute vs. chronic) O2 as needed Aggressive pulmonary toileting Chest x-rays as needed Pain management PT and OT ordered Encourage out of bed LEFT ischium fx LEFT inferior pubic ramus fx (non-op) LEFT femoral intertrochanter fx Small pelvic hematoma Orthopedics consulted and assisting in management and care 09/22: Left troch nail Pain management PT and OT ordered TTWB LLE Encourage out of bed Lovenox for DVT prophylaxis Antibiotics per orthopedics Dressings per orthopedics H&H stable *Enlarged bilateral axillary adenopathy *Adenopathy in upper abdomen concerning for lymphoma/leukemia Hospitalist following pt Hematology consulted and assisting in management and care 09/25: Lymph node biopsy Awaiting results Remarks Seen and examined with the nurse practitioner, undergoing colonoscopy and EGD, is stable from trauma standpoint and will be discharged soon Problem Qualifiers (1) Fracture, intertrochanteric, left femur: Qualified Codes: S72.142A - Displaced intertrochanteric fracture of left femur , initial encounter for closed fracture (2) Fracture of left ischium: (3) Fracture of left inferior pubic ramus: Qualified Codes: S32.592A - Other specified fracture of left pubis, initial encounter for closed fracture Danielle Ames Sep 27, 2017 11:15 Ria De La Garza MD Sep 30, 2017 08:55
--- NOTE | 2017-09-27 11:17 | HHI.PR ---
Subjective Remarks in no acute distress. pain is fairly controlled. no new complaints. Objective Vitals Vital Signs Date Time Temp Pulse Resp B/P (MAP) Pulse Ox O2 Delivery O2 Flow Rate FiO2 09/27/17 10:15 96.8 60 18 123/74 (90) 100 Room Air 09/27/17 08:00 97.0 69 18 110/73 (85) 99 09/27/17 04:10 96.8 59 17 126/75 (92) 95 09/26/17 23:30 97.8 63 17 130/78 (95) 95 09/26/17 21:30 98.0 71 17 132/78 (96) 97 09/26/17 16:37 96.6 74 18 140/85 (103) 98 09/26/17 12:07 97.7 80 18 141/86 (104) 97 I/O 09/26/17 09/26/17 09/26/17 09/27/17 09/27/17 09/27/17 07:00 15:00 23:00 07:00 15:00 23:00 Intake Total 300 ml 894 ml 3220 ml 700 ml 400 ml Output Total 700 ml 510 ml Balance -400 ml 894 ml 2710 ml 700 ml 400 ml Intake Oral 300 ml 3220 ml 600 ml IV Total 894 ml 100 ml Other 400 ml Output Urine Total 700 ml 510 ml # Voids 5 5 # Bowel Movements 6 5 Result Diagram: 09/26/17 0708 09/26/17 0708 Imaging Last Impressions Chest X-Ray 09/25/17 0600 Signed Impressions: Service Date/Time: Monday, September 25, 2017 04:43 - CONCLUSION: No significant change has occurred. Kendall Borges MD Pelvis X-Ray 09/22/17 1130 Signed Impressions: Service Date/Time: September 11:30 - CONCLUSION: Nondisplaced fractures suspected involving the pelvis as detailed above. Consider CT to further evaluate. Yaniv Alvarez Jr., MD Head CT 09/22/17 1130 Signed Impressions: Service Date/Time: September 11:42 - CONCLUSION: 1. No acute hemorrhage or mass effect. 2. Remote postsurgical changes with screw-plate fixation devices anterior maxilla. There is an apparent old left nasal bone fracture. Lalo Danielson MD Chest CT 09/22/17 1130 Signed Impressions: Service Date/Time: September 11:50 - CONCLUSION: 1. Enlarged bilateral axillary adenopathy and adenopathy in the upper abdomen concerning for lymphoma/leukemia versus metastatic disease. 2. No acute thoracic injury. 3. Large hiatal hernia. 4. Right lower lateral rib fracture appear subacute to chronic. Hong Damian MD Cervical Spine CT 09/22/17 1130 Signed Impressions: Service Date/Time: September 11:44 - CONCLUSION: 1. No fracture or dislocation. 2. Mild degenerative changes. Yaniv Alvarez Jr., MD Abdomen/Pelvis CT 09/22/17 1130 Signed Impressions: Service Date/Time: September 11:48 - CONCLUSION: 1. Acute fractures involving the left ischium, left inferior pubic ramus, and left intertrochanteric hip with small left pelvic hematoma. 2. Retroperitoneal adenopathy worrisome for a myeloproliferative disorder. 3. Tiny low-density lesions involving the liver likely related to cysts. Yaniv Alvarez Jr., MD Hip X-Ray 09/22/17 0000 Signed Impressions: Service Date/Time: September 18:15 - CONCLUSION: ORIF of left proximal femur fracture with hardware in good position. Steve Teague MD Femur X-Ray 09/22/17 0000 Signed Impressions: Service Date/Time: September 11:30 - CONCLUSION: 1. Comminuted left femoral intertrochanteric fracture. 2. Nondisplaced left inferior pubic ramus fracture. Vaughn Beltre MD Objective Remarks GENERAL: This is a well-nourished, well-developed patient, in no apparent distress. CARDIOVASCULAR: Regular rate and regular rhythm without murmurs, gallops, or rubs. RESPIRATORY: Clear to auscultation. Breath sounds equal bilaterally. No wheezes , rales, or rhonchi. GASTROINTESTINAL: Abdomen soft, non-tender, nondistended. Normal, active bowel sounds MUSCULOSKELETAL: Extremities without clubbing, cyanosis, or edema. NEURO: Alert & Oriented x4 to person, place, time, situation. Moves all ext x4 Procedures VANESSA SOARES DATE OF SURGERY: 09/22/2017 PREOPERATIVE DIAGNOSIS: Left intertrochanteric hip fracture. POSTOPERATIVE DIAGNOSIS: Left intertrochanteric hip fracture. OPERATIVE PROCEDURE PERFORMED: Trochanteric femoral nailing left intertrochanteric hip fracture. SURGEON: Dr. Vanessa Soares. FRONT OFFICE AGENT: Chidi Lo ANESTHESIA General. ESTIMATED BLOOD LOSS: 100 cc. COMPLICATIONS: None. IMPLANTS USED: Synthes. JUSTIFICATION FOR THE PROCEDURE: This patient is a 62-year-old male who fell from a tree sustaining a left comminuted intertrochanteric femur fracture as well as left-sided pelvic rami fractures. He was taken to the [facility] Emergency Room. Orthopedic surgery was consulted. The patient was counselled as to the risks, benefits and alternatives to the above-named proposed surgical procedure and did wish to proceed with surgery. DESCRIPTION OF THE PROCEDURE IN DETAIL: Written consent was obtained. The patient was identified by name and taken to the operating room and placed in the supine position. General endotracheal anesthesia was administered as well as 2 grams of IV Ancef and 1 gram of IV Vancomycin. The left foot was placed in a padded traction boot. The right leg was placed in a padded well-leg askew. All bony prominences and pressure points were well-padded. The left hip and left lower extremity were prepped and draped using isopropyl alcohol, Hibiclens solution and Chloraprep solution. After a time out was performed, a longitudinal incision was made over the lateral aspect of the left hip. The fascial layer was incised. The guidewire was used to gain entrance into the intramedullary canal of the femur. This was followed by a cannulated entry reamer. Subsequently a Synthes trochanteric femoral nail was inserted into the intramedullary canal of the femur. The 130 degree locking jig was used to place a guide pin centered into the femoral head on the AP and lateral fluoroscopic projections. This was followed by placement of a 110 mm spiral blade. The top locking screw was secured to create a single sliding construct. Distally the locking jig was used to place a single lateral to medial transverse static locking screw. Fluoroscopic imaging again confirmed hardware placement and fracture reduction. The surgical wound was thoroughly irrigated with sterile saline solution. Fascial layer was closed with #1 Vicryl suture, the subcutaneous layer with 2-0 Vicryl suture. The skin was closed with Dermabond. Sterile dressing applied. The patient tolerated the procedure well. No intraoperative complications were noted. NOTE Dereck Urban, physician fast food sales assistant certified was present during the entire procedure to include patient positioning and the procedure itself. The medical necessity of a physician fast food sales assistant was indicated in this case due to the complexity of the procedure itself. He assisted with appropriate manipulation of the leg and also retraction of muscle, tendon, bone and neurovascular structures. He assisted with preparation of bone and also implantation of the prosthetic replacement. Vanessa Soares MD colonoscopy. Medications and IVs Inpatient Medications Acetaminophen (Tylenol) 500 mg Q6H PRN PO PAIN SCALE 1 TO 2 Last administered on 09/26/17at 12:08; Start 09/23/17 at 10:00 Acetaminophen/ Hydrocodone Bitart ([place] 7.5-325 Mg) 2 tab Q6H PRN PO PAIN GREATER THAN/EQUAL TO 5 Last administered on 09/27/17at 07:53; Start 09/22/17 at 17 :45 Ascorbic Acid (Vitamin C) 500 mg DAILY PO Last administered on 09/27/17 07:53; Start 09/26/17 at 12:15 Cefazolin Sodium 1000 mg/Sodium Chloride 100 ml @ 200 mls/hr Q8H IV Last administered on 09/27/17at 01:14; Start 09/23/17 at 02:00 Cefazolin Sodium/ Dextrose 50 ml @ 100 mls/hr WATER RESOURCE AGENT IV Last administered on 09/25/17at 11:34; Start 09/24/17 at 11:00; Stop 09/27/17 at 10:59; Status DC Chlorhexidine Gluconate (Chlorhexidine 2% Cloth) 3 pack WATER RESOURCE AGENT PRN TOPICAL SEE LABEL COMMENTS; Start 09/25/17 at 04:00; Stop 09/28/17 at 03:59 Dextrose/Sodium Chloride 1,000 ml @ 100 mls/hr Q10H IV Last administered on 09/24/17at 22:42; Start 09/22/17 at 17:35 Diphenhydramine HCl (Benadryl) 25 mg Q6H PRN PO ITCHING; Start 09/22/17 at 17:45 Docusate Sodium (Colace) 100 mg BID PO ; Start 09/22/17 at 21:00; Stop 09/23/17 at 07:44; Status DC Enalaprilat (Vasotec Inj) 1.25 mg Q8H PRN IV PUSH SBP>180, DBP>95; Start at 15:30 Enoxaparin Sodium (Lovenox Inj) 40 mg Q24H SQ Last administered on 09/26/17at 16: 45; Start 09/23/17 at 18:00; Stop 10/02/17 at 18:01 Famotidine (Pepcid) 20 mg BID PO Last administered on 09/27/17at 07:53; Start 09/22/17 at 21:00 Lactated Ringer's 1,000 ml @ 30 mls/hr Q24H PRN IV SEE LABEL COMMENTS; Start at 04:00; Stop 09/28/17 at 03:59 Lactulose (Lactulose Liq) 30 ml DAILY PO Last administered on 09/25/17at 09:22; Start 09/25/17 at 09:00 Lidocaine HCl (Lidoderm 5% Patch.12 Hr) 1 patch DAILY T-DERMAL Last administered on 09/27/17at 07:52; Start 09/22/17 at 15:30 Magnesium Hydroxide (Milk Of Magnesia Liq) 10 ml Q12H PRN PO CONSTIPATION; Start 09/22/17 at 17:45; Stop 09/23/17 at 07:44; Status DC Methocarbamol (Robaxin) 500 mg Q8H PO Last administered on 09/27/17at 07:53; Start 09/22/17 at 16:00 Metoprolol Tartrate (Lopressor) 25 mg WATER RESOURCE AGENT PRN PO SEE LABEL COMMENTS; Start 09/25/17 at 04:00; Stop 09/28/17 at 03:59 Miscellaneous Information ALL NURSING DEPARTME... 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 Last administered on 09/26/17at 21:27; Start 09/22/17 at 17:45 Multivitamins/ Minerals Therapeutic (Theragran M Tab) 1 tab DAILY PO Last administered on 09/27/17at 07:53; Start 09/23/17 at 09:00 Ondansetron HCl (Zofran Inj) 4 mg Q4H PRN IVP NAUSEA OR VOMITING Last administered on 09/27/17 06:46; Start 09/22/17 at 17:45 Oxycodone HCl (Roxicodone) 10 mg Q4H PRN PO PAIN SCALE 6 TO 10 Last administered on 09/22/17at 16:32; Start 09/22/17 at 15:30; Stop 09/22/17 at 19:31; Status DC Polyethylene Glycol/ Electrolytes (Colyte Liq) 4,000 ml ONCE ONCE PO Last administered on 09/26/17at 14:39; Start 09/26/17 at 16:00; Stop 09/26/17 at 16:01; Status DC Povidone Iodine (Betadine 5% Antisepsis Kit) 1 applic WATER RESOURCE AGENT PRN EACH NARE SEE LABEL COMMENTS; Start 09/25/17 at 04:00; Stop 09/28/17 at 03:59 Senna/Docusate Sodium (Ileana-Colace) 1 tab BID PO Last administered on 09/27/17at 07:53; Start 09/22/17 at 21:00 Sodium Chloride 500 ml @ 30 mls/hr [id number] PRN IV SEE LABEL COMMENTS; Start 09/25/17 at 04:00; Stop 09/28/17 at 03:59 Sodium Chloride (NS Flush) 2 ml UNSCH PRN IV FLUSH FLUSH AFTER USING IV ACCESS Last administered on 09/26/17at 16:44; Start 09/22/17 at 15:30 A/P Assessment and Plan 1. Status post traumatic fall with left hip fracture and left pubic ramus fracture status post op day #3 for left troch nail- continue postoperative care , pain control and physical therapy per orthopedic surgery 2. Abnormal CT of the chest and abdomen with findings of Enlarged bilateral axillary adenopathy and adenopathy in the upper abdomen concerning for lymphoma/ leukemia versus metastatic disease. -Patient has a insignificant past history with no recent abnormal review of systems symptoms. s/p left axillary note excisional biopsy- awaiting the pathology-surgery and hematology following. s/p EGD and colonoscopy with gastritis, hiatal hernia, diverticulosis and internal and external hemorrhoids. 3. Tobacco abuse- cessation counseling 4. DVT prophylaxis- Lovenox Discharge Planning dc planning to SNF. d/w the case management and the patient. Pete Caputo MD Sep 27, 2017 11:17
[2017-09-27 12:00] VITALS: BP 149/98; PULSE 70; RESP 18; TEMP 96; O2SAT 100
[2017-09-27] MEDS ORDERED: LIDOCAINE HCL 1% PF 5 ML SYRINGE OTHER ONE (12:00)
[2017-09-27] MEDS ORDERED: PROPOFOL 200 MG/20 ML AMP IV ONE (12:00)
--- NOTE | 2017-09-27 13:24 | PD.ONC.PN ---
Subjective Subjective Remarks Afebrile overnight. Patient resting in bed in nad. No complaints. Hoping to leave hospital soon. Objective Data Date Time Temp Pulse Resp B/P (MAP) Pulse Ox O2 Delivery O2 Flow Rate FiO2 09/27/17 10:15 96.8 60 18 123/74 (90) 100 Room Air 09/27/17 08:00 97.0 69 18 110/73 (85) 99 09/27/17 04:10 96.8 59 17 126/75 (92) 95 09/26/17 23:30 97.8 63 17 130/78 (95) 95 09/26/17 21:30 98.0 71 17 132/78 (96) 97 09/26/17 16:37 96.6 74 18 140/85 (103) 98 09/27/17 09/27/17 09/27/17 07:00 15:00 23:00 Intake Total 700 ml 400 ml Balance 700 ml 400 ml Result Diagram: 09/26/17 0708 09/26/17 0708 Administered Medications Medications (Trade) Dose Ordered Sig/Fiona Route PRN Reason Start Time Stop Time Status Last Admin Dose Admin Sodium Chloride (NS Flush) 2 ml UNSCH PRN IV FLUSH FLUSH AFTER USING IV ACCESS 09/22/17 15:30 09/26/17 16:44 Magnesium Hydroxide (Milk Of Jemal Lizama) 30 ml BID PO 09/22/17 21:00 09/26/17 20:07 Famotidine (Pepcid) 20 mg BID PO 09/22/17 21:00 09/27/17 07:53 Methocarbamol (Robaxin) 500 mg Q8H PO 09/22/17 16:00 09/27/17 07:53 Lidocaine HCl (Lidoderm 5% Patch.12 Hr) 1 patch DAILY T-DERMAL 09/22/17 15:30 09/27/17 07:52 Miscellaneous Information 1 Q24H T-DERMAL 09/22/17 21:00 09/26/17 20:08 Dextrose/Sodium Chloride 1,000 ml @ 100 mls/hr Q10H IV 09/22/17 17:35 09/24/17 22:42 Enoxaparin Sodium (Lovenox Inj) 40 mg Q24H SQ 09/23/17 18:00 10/02/17 18:01 09/26/17 16:45 Senna/Docusate Sodium (Ileana-Colace) 1 tab BID PO 09/22/17 21:00 09/27/17 07:53 Cefazolin Sodium 1000 mg/Sodium Chloride 100 ml @ 200 mls/hr Q8H IV 09/23/17 02:00 09/27/17 01:14 Acetaminophen/ Hydrocodone Bitart ([place] 7.5-325 Mg) 1 tab Q4H PRN PO PAIN SCALE 3 TO 5 09/22/17 17:45 09/26/17 03:56 Acetaminophen/ Hydrocodone Bitart ([place] 7.5-325 Mg) 2 tab Q6H PRN PO PAIN GREATER THAN/EQUAL TO 5 09/22/17 17:45 09/27/17 07:53 Morphine Sulfate (Morphine Inj) 5 mg Q3H PRN IV PUSH 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 SKIN: Warm and dry. bandages in left axilla are clean. HEAD: Normocephalic. EYES: No scleral icterus. No injection or drainage. NECK: Supple, trachea midline. CARDIOVASCULAR: Regular rate and rhythm RESPIRATORY: Breath sounds equal bilaterally. No accessory muscle use. GASTROINTESTINAL: Abdomen soft, non-tender, nondistended. EXTREMITIES: No cyanosis NEUROLOGICAL: No obvious focal deficit. Awake, alert, and oriented x3. Assessment/Plan Problem List: (1) Lymphadenopathy ICD Codes: R59.1 - Generalized enlarged lymph nodes Plan: 09/27: face sheet faxed to new patient referrals for follow up in 1-2 weeks. will review pathology in clinic. 09/26 S/P bx of LN yesterday. await result. It will take 5-7 days to get the result back Pt can be d/c to home . Appt to see me next week at office to go over the result of the bx. Pt is requesting walker. Consult CM to arrange it. 09/25: axillary biopsy today. await pathology --most likely consistent with lymphoma until proven otherwise. --HIV pending --LDH elevated. --CT c/a/p: shows bilateral axillary lymph adenopathy + retroperitoneal LAD; however, there is no mediastinal or hilar lymphadenopathy noted. --no B symptoms, ie.e fever, night sweats or weight loss. (2) Fracture of left inferior pubic ramus ICD Codes: S32.592A - Other specified fracture of left pubis, initial encounter for closed fracture Status: Acute (3) Fracture, intertrochanteric, left femur ICD Codes: S72.142A - Displaced intertrochanteric fracture of left femur, initial encounter for closed fracture Status: Acute Assessment 62y/o male admitted s/p left hip fracture. hematology consulted for incidentally found lymphadenopathy. Attending Statement The exam, history, and the medical decision-making described in the above note were completed with the assistance of the mid-level provider. I reviewed and agree with the findings presented. I attest that I had a [id number] encounter with the patient on the same day, and personally performed and documented my assessment and findings in the medical record. No new complaints Anxious to know the results of the lymph node biopsy Patient had an EGD and colonoscopy. No evidence of malignancy noted Okay to discharge he can be followed as an Outpatient for the biopsy results Problem Qualifiers (1) Fracture of left inferior pubic ramus: Qualified Codes: S32.592A - Other specified fracture of left pubis, initial encounter for closed fracture (2) Fracture, intertrochanteric, left femur: Qualified Codes: S72.142A - Displaced intertrochanteric fracture of left femur , initial encounter for closed fracture Yuly Rondon Sep 27, 2017 13:24 Eric Torres MD Sep 27, 2017 21:31
[2017-09-27 16:00] VITALS: BP 116/79; PULSE 75; RESP 18; TEMP 98.5; O2SAT 99
[2017-09-27] MEDS: ENOXAPARIN SODIUM 40 MG/0.4 ML SYRINGE SQ SCH (17:44)
[2017-09-27] MEDS: REMOVE OLD LIDOCAINE PATCH T-DERMAL SCH (20:29)
[2017-09-27 21:20] VITALS: BP 107/64; PULSE 67; RESP 17; TEMP 97.2; O2SAT 97
[2017-09-27 23:45] VITALS: BP 118/82; PULSE 72; RESP 16; TEMP 97.3; O2SAT 97
[2017-09-28] MEDS: METHOCARBAMOL 500 MG TAB PO SCH ×2 (00:39→07:57)
[2017-09-28] MEDS: ACETAMINOPHEN 500 MG CPLT PO PRN ×2 (00:42→07:58)
[2017-09-28] MEDS: ONDANSETRON HCL 4 MG/2 ML VIAL IVP PRN (03:11)
[2017-09-28] MEDS: ACETAMINOPHEN/HYDROcodone 325 MG/7.5 MG TAB PO PRN ×2 (03:42→10:14)
[2017-09-28 07:50] VITALS: BP 103/59; PULSE 58; RESP 18; TEMP 97.8; O2SAT 99
[2017-09-28] MEDS: DOCUSATE SODIUM 50 MG/SENNA 8.6 MG TAB PO SCH (07:57)
[2017-09-28] MEDS: ASCORBIC ACID 500 MG TAB PO SCH (07:57)
[2017-09-28] MEDS: FAMOTIDINE 20 MG TAB PO SCH (07:57)
[2017-09-28] MEDS: MAGNESIUM HYDROXIDE SUSP 30 ML CUP PO SCH (07:57)
[2017-09-28] MEDS: MULTIVITAMINS/MINERALS THERAPEUTIC TAB PO SCH (07:57)
[2017-09-28] MEDS: LACTULOSE SYRUP 20 GM/30 ML CUP PO SCH (07:57)
[2017-09-28] MEDS: LIDOCAINE HCL 5% PATCH T-DERMAL SCH (07:58)
[2017-09-28] MEDS ORDERED: HYDR-3288 PO (11:18)
[2017-09-28 12:00] VITALS: BP 133/81; PULSE 86; RESP 18; TEMP 98.9; O2SAT 96
--- NOTE | 2017-09-28 12:11 | PD.PSY.CON ---
Provisional Diagnosis Admission Date Sep 22, 2017 at 13:19 [place]. Bipolar disorder History of Present Illness Service Psychiatry Consult Requested By Surgical team Reason for Consult Bipolar disorder Primary Care Physician Unknown HPI The patient is a in about late [id number] man, homeless, he usually lives in a detention in the [place], single, poor family and social support, supported by [facility], he says that he has a psychiatric history of schizoaffective disorder, bipolar type, he denies previous psychiatric hospitalizations, denied previous suicidal attempts, he is not in psychotropics, medical history of hypertension, hospitalized Left intertrochanteric hip fracture. Consulted to psychiatry due to history of schizoaffective disorder. On psychiatric evaluation today the patient is guarded, oppositional, irritable, at the beginning refusing to talk with psychiatry. The patient says that he is not here to see a psychiatrist. He says that he is not interested in psychiatric services. Patient reports that he has a good mood, he would prefer to be out of the hospital, he denies depression, he denies anxiety, he denies anhedonia, he denies suicidal and homicidal ideation, he denies visual and auditory hallucinations. She says that he has a History of schizoaffective disorder, he has been in medications in the past, but he prefers to be not taking any medications, and he prefers not to talk about his past psychiatric history. The patient is logical, he is coherent and relevant. Oriented 3, no attention deficit, no fluctuation of consciousness. Patient denies the use of alcohol, reports almost daily use of marijuana. Review of Systems Constitutional: DENIES: Diaphoretic episodes, Fatigue, Fever, Weight gain, Weight loss, Chills, Dizziness, Change in appetite, Night Sweats Endocrine: DENIES: Heat/cold intolerance, Polydipsia, Polyuria, Polyphagia Eyes: DENIES: Blurred vision, Diplopia, Eye inflammation, Eye pain, Vision loss , Photosensitivity, Double Vision Ears, nose, mouth, throat: DENIES: Tinnitus, Hearing loss, Vertigo, Nasal discharge, Oral lesions, Throat pain, Hoarseness, Ear Pain, Running Nose, Epistaxis, Sinus Pain, Toothache, Odynophagia Respiratory: DENIES: Apneas, Cough, Snoring, Wheezing, Hemoptysis, Sputum production, Shortness of breath Cardiovascular: DENIES: Chest pain, Palpitations, Syncope, Dyspnea on Exertion , PND, Lower Extremity Edema, Orthopnea, Claudication Gastrointestinal: DENIES: Abdominal pain, Black stools, Bloody stools, Constipation, Diarrhea, Nausea, Vomiting, Difficulty Swallowing, Anorexia Genitourinary: DENIES: Sexual dysfunction, Urinary frequency, Urinary incontinence, Urgency, Hematuria, Dysuria, Nocturia, Penile Discharge, Testicular Pain, Testicular Swelling Musculoskeletal: DENIES: Joint pain, Muscle aches, Stiffness, Joint Swelling, Back pain, Neck pain Integumentary: DENIES: Abnormal pigmentation, Nail changes, Pruritus, Rash Hematologic/lymphatic: DENIES: Bruising, Lymphadenopathy Immunologic/allergic: DENIES: Eczema, Urticaria Neurologic: DENIES: Abnormal gait, Headache, Localized weakness, Paresthesias, Seizures, Speech Problems, Tremor, Poor Balance Psychiatric: DENIES: Anxiety, Confusion, Mood changes, Depression, Hallucinations, Agitation, Suicidal Ideation, Homicidal Ideation, Delusions Past Family Social History Coded Allergies: codeine (Verified Allergy, Severe, violently ill, 09/22/17) Active Scripts Aspirin (Aspirin Low Dose) 81 Mg Chew, 81 MG CHEW BID for Prevent Blood Clot for 30 Days, #60 TAB 0 Refills Prov:Isaias Soares MD 09/22/17 Current Medications Medications (Trade) Dose Ordered Sig/Fiona Route Start Time Stop Time Status Last Admin (NS Flush) 2 ml UNSCH PRN IV FLUSH 09/22/17 15:30 09/26/17 16:44 (Vasotec Inj) 1.25 mg Q8H PRN IV PUSH 09/22/17 15:30 (Milk Of Magnesia Liq) 30 ml BID PO 09/22/17 21:00 09/28/17 07:57 (Pepcid) 20 mg BID PO 09/22/17 21:00 09/28/17 07:57 (Robaxin) 500 mg Q8H PO 09/22/17 16:00 09/28/17 07:57 (Lidoderm 5% Patch.12 Hr) 1 patch DAILY T-DERMAL 09/22/17 15:30 09/28/17 07:58 Miscellaneous Information 1 Q24H T-DERMAL 09/22/17 21:00 09/27/17 20:29 (Lovenox Inj) 40 mg Q24H SQ 09/23/17 18:00 10/02/17 18:01 2/6/18 17:44 (Ileana-Colace) 1 tab BID PO 09/22/17 21:00 09/28/17 07:57 Cefazolin Sodium 1000 mg/Sodium Chloride 100 ml @ 200 mls/hr Q8H IV 09/23/17 02:00 09/28/17 11:13 Miscellaneous Information UNSCH PRN XX 09/22/17 17:45 ([place] 7.5-325 Mg) 1 tab Q4H PRN PO 09/22/17 17:45 09/26/17 03:56 ([place] 7.5-325 Mg) 2 tab Q6H PRN PO 09/22/17 17:45 09/28/17 10:14 (Morphine Inj) 5 mg Q3H PRN IV PUSH 09/22/17 17:45 09/26/17 21:27 (Zofran Inj) 4 mg Q4H PRN IVP 09/22/17 17:45 09/28/17 03:11 (Theragran M Tab) 1 tab DAILY PO 09/23/17 09:00 09/28/17 07:57 (Benadryl) 25 mg Q6H PRN PO 09/22/17 17:45 (Tylenol) 500 mg Q6H PRN PO 09/23/17 10:00 09/28/17 07:58 (Lactulose Liq) 30 ml DAILY PO 09/25/17 09:00 09/28/17 07:57 (Vitamin C) 500 mg DAILY PO 09/26/17 12:15 09/28/17 07:57 Family Psych History No family psychiatric history Social History Patient was born and raised in [place], he is homeless, usually sleeps in a hinduism in [place], single, unemployed, supported by [employer], he has some college credits Patient's Strengths (min. 2) Verbal communication Physical Exam Vital Signs Vital Signs Date Time Temp Pulse Resp B/P (MAP) Pulse Ox O2 Delivery O2 Flow Rate FiO2 09/28/17 07:50 97.8 58 18 103/59 (74) 99 09/27/17 10:15 Room Air 09/24/17 08:33 21 I/O 09/28/17 09/28/17 09/29/17 08:00 16:00 00:00 Intake Total 960 ml Balance 960 ml Mental Status Examination Appearance: Appropriate Consciousness: Alert Orientation: x4 Motor Activity: Normal gait Speech: Unremarkable Language: Adequate Fund of Knowledge: Adequate Attention and Concentration: Adequate Memory: Unremarkable Mood: Irritable Affect: Irritable Thought Process & Associations: Intact Thought Content: Appropriate Hallucination Type: None Delusion Type: None Suicidal Ideation: No Suicidal Plan: No Suicidal Intention: No Homicidal Ideation: No Homicidal Plan: No Homicidal Intention: No Insight: Fair Judgment: Impulsive Assessment & Plan Problem List: (1) Schizoaffective disorder ICD Codes: F25.9 - Schizoaffective disorder, unspecified Assessment & Plan: At the moment of this evaluation the patient does not present any neuropsychiatric symptoms that require immediate psychiatric intervention. Patient denies depression, denies anxiety, denies natacha and psychosis. He denies suicidal and homicidal ideation, he denies visual and auditory hallucinations. She is not interested in restarting any psychotropic regimen for his reported history of schizoaffective disorder. Psychoeducation provided. Psychiatry is signing off. Assessment & Plan Estimated LOS: Osbaldo Bradford MD Sep 28, 2017 12:11
--- NOTE | 2017-09-28 13:22 | HHI.PR ---
Subjective Remarks in no acute distress. pain seems to be controlled. Objective Vitals Vital Signs Date Time Temp Pulse Resp B/P (MAP) Pulse Ox O2 Delivery O2 Flow Rate FiO2 09/28/17 12:00 98.9 86 18 133/81 (98) 96 09/28/17 07:50 97.8 58 18 103/59 (74) 99 09/27/17 23:45 97.3 72 16 118/82 (94) 97 09/27/17 21:20 97.2 67 17 107/64 (78) 97 09/27/17 16:00 98.5 75 18 116/79 (91) 99 I/O 09/27/17 09/27/17 09/27/17 09/28/17 09/28/17 09/28/17 07:00 15:00 23:00 07:00 15:00 23:00 Intake Total 700 ml 880 ml 480 ml 960 ml Balance 700 ml 880 ml 480 ml 960 ml Intake Oral 600 ml 480 ml 480 ml 960 ml IV Total 100 ml Other 400 ml # Voids 5 5 2 3 # Bowel Movements 5 2 0 0 Result Diagram: 09/26/17 0708 09/26/17 0708 Imaging Last Impressions Chest X-Ray 09/25/17 0600 Signed Impressions: Service Date/Time: Monday, September 25, 2017 04:43 - CONCLUSION: No significant change has occurred. Kendall Borges MD Pelvis X-Ray 09/22/17 1130 Signed Impressions: Service Date/Time: September 11:30 - CONCLUSION: Nondisplaced fractures suspected involving the pelvis as detailed above. Consider CT to further evaluate. Yaniv Alvarez Jr., MD Head CT 09/22/171129 Signed Impressions: Service Date/Time: September 11:42 - CONCLUSION: 1. No acute hemorrhage or mass effect. 2. Remote postsurgical changes with screw-plate fixation devices anterior maxilla. There is an apparent old left nasal bone fracture. Lalo Danielson MD Chest CT 09/22/170 Signed Impressions: Service Date/Time: September 11:50 - CONCLUSION: 1. Enlarged bilateral axillary adenopathy and adenopathy in the upper abdomen concerning for lymphoma/leukemia versus metastatic disease. 2. No acute thoracic injury. 3. Large hiatal hernia. 4. Right lower lateral rib fracture appear subacute to chronic. Hong Damian MD Cervical Spine CT 09/22/17 1130 Signed Impressions: Service Date/Time: September 11:44 - CONCLUSION: 1. No fracture or dislocation. 2. Mild degenerative changes. Yaniv Alvarez Jr., MD Abdomen/Pelvis CT 09/22/17 1130 Signed Impressions: Service Date/Time: September 11:48 - CONCLUSION: 1. Acute fractures involving the left ischium, left inferior pubic ramus, and left intertrochanteric hip with small left pelvic hematoma. 2. Retroperitoneal adenopathy worrisome for a myeloproliferative disorder. 3. Tiny low-density lesions involving the liver likely related to cysts. Yaniv Alvarez Jr., MD Hip X-Ray 09/22/17 0000 Signed Impressions: Service Date/Time: September 18:15 - CONCLUSION: ORIF of left proximal femur fracture with hardware in good position. Steve Teague MD Femur X-Ray 09/22/17 0000 Signed Impressions: Service Date/Time: September 11:30 - CONCLUSION: 1. Comminuted left femoral intertrochanteric fracture. 2. Nondisplaced left inferior pubic ramus fracture. Vaughn Beltre MD Objective Remarks GENERAL: This is a well-nourished, well-developed patient, in no apparent distress. CARDIOVASCULAR: Regular rate and regular rhythm without murmurs, gallops, or rubs. RESPIRATORY: Clear to auscultation. Breath sounds equal bilaterally. No wheezes , rales, or rhonchi. GASTROINTESTINAL: Abdomen soft, non-tender, nondistended. Normal, active bowel sounds MUSCULOSKELETAL: Extremities without clubbing, cyanosis, or edema. NEURO: Alert & Oriented x4 to person, place, time, situation. Moves all ext x4 Procedures VANESSA SOARES DATE OF SURGERY: 09/22/2017 PREOPERATIVE DIAGNOSIS: Left intertrochanteric hip fracture. POSTOPERATIVE DIAGNOSIS: Left intertrochanteric hip fracture. OPERATIVE PROCEDURE PERFORMED: Trochanteric femoral nailing left intertrochanteric hip fracture. SURGEON: Dr. Vanessa Soares. FRENCH FOLDER: Chidi Lo ANESTHESIA General. ESTIMATED BLOOD LOSS: 100 cc. COMPLICATIONS: None. IMPLANTS USED: Synthes. JUSTIFICATION FOR THE PROCEDURE: This patient is a 62-year-old male who fell from a tree sustaining a left comminuted intertrochanteric femur fracture as well as left-sided pelvic rami fractures. He was taken to the [facility] Emergency Room. Orthopedic surgery was consulted. The patient was counselled as to the risks, benefits and alternatives to the above-named proposed surgical procedure and did wish to proceed with surgery. DESCRIPTION OF THE PROCEDURE IN DETAIL: Written consent was obtained. The patient was identified by name and taken to the operating room and placed in the supine position. General endotracheal anesthesia was administered as well as 2 grams of IV Ancef and 1 gram of IV Vancomycin. The left foot was placed in a padded traction boot. The right leg was placed in a padded well-leg askew. All bony prominences and pressure points were well-padded. The left hip and left lower extremity were prepped and draped using isopropyl alcohol, Hibiclens solution and Chloraprep solution. After a time out was performed, a longitudinal incision was made over the lateral aspect of the left hip. The fascial layer was incised. The guidewire was used to gain entrance into the intramedullary canal of the femur. This was followed by a cannulated entry reamer. Subsequently a Synthes trochanteric femoral nail was inserted into the intramedullary canal of the femur. The 130 degree locking jig was used to place a guide pin centered into the femoral head on the AP and lateral fluoroscopic projections. This was followed by placement of a 110 mm spiral blade. The top locking screw was secured to create a single sliding construct. Distally the locking jig was used to place a single lateral to medial transverse static locking screw. Fluoroscopic imaging again confirmed hardware placement and fracture reduction. The surgical wound was thoroughly irrigated with sterile saline solution. Fascial layer was closed with #1 Vicryl suture, the subcutaneous layer with 2-0 Vicryl suture. The skin was closed with Dermabond. Sterile dressing applied. The patient tolerated the procedure well. No intraoperative complications were noted. NOTE Dereck Urban, physician physical therapy assistant certified was present during the entire procedure to include patient positioning and the procedure itself. The medical necessity of a physician physical therapy assistant was indicated in this case due to the complexity of the procedure itself. He assisted with appropriate manipulation of the leg and also retraction of muscle, tendon, bone and neurovascular structures. He assisted with preparation of bone and also implantation of the prosthetic replacement. Vanessa Soares MD colonoscopy. Medications and IVs Inpatient Medications Acetaminophen (Tylenol) 500 mg Q6H PRN PO PAIN SCALE 1 TO 2 Last administered on 09/28/17at 07:58; Start 09/23/17 at 10:00 Acetaminophen/ Hydrocodone Bitart ([place] 7.5-325 Mg) 2 tab Q6H PRN PO PAIN GREATER THAN Last administered on 09/28/17at 10:14; Start 09/22/17 at 17:45 Ascorbic Acid (Vitamin C) 500 mg DAILY PO Last administered on 09/28/17 07:57; Start 09/26/17 at 12:15 Cefazolin Sodium 1000 mg/Sodium Chloride 100 ml @ 200 mls/hr Q8H IV Last administered on 09/28/17at 11:13; Start 09/23/17 at 02:00 Cefazolin Sodium/ Dextrose 50 ml @ 100 mls/hr ORDER CLERK IV Last administered on 09/25/17at 11:34; Start 09/24/17 at 11:00; Stop 09/27/17 at 10:59; Status DC Chlorhexidine Gluconate (Chlorhexidine 2% Cloth) 3 pack ORDER CLERK PRN TOPICAL SEE LABEL COMMENTS; Start 09/25/17 at 04:00; Stop 09/27/17 at 17:16; Status DC Dextrose/Sodium Chloride 1,000 ml @ 100 mls/hr Q10H IV Last administered on 09/24/17at 22:42; Start 09/22/17 at 17:35; Stop 09/27/17 at 17:16; Status DC Diphenhydramine HCl (Benadryl) 25 mg Q6H PRN PO ITCHING; Start 09/22/17 at 17:45 Docusate Sodium (Colace) 100 mg BID PO ; Start 09/22/17 at 21:00; Stop 09/23/17 at 07:44; Status DC Enalaprilat (Vasotec Inj) 1.25 mg Q8H PRN IV PUSH SBP>180, DBP>95; Start at 15:30 Enoxaparin Sodium (Lovenox Inj) 40 mg Q24H SQ Last administered on 09/27/17at 17: 44; Start 09/23/17 at 18:00; Stop 10/02/17 at 18:01 Famotidine (Pepcid) 20 mg BID PO Last administered on 09/28/17at 07:57; Start 09/22/17 at 21:00 Lactated Ringer's 1,000 ml @ 30 mls/hr Q24H PRN IV SEE LABEL COMMENTS; Start at 04:00; Stop 09/27/17 at 17:16; Status DC Lactulose (Lactulose Liq) 30 ml DAILY PO Last administered on 09/28/17at 07:57; Start 09/25/17 at 09:00 Lidocaine HCl (Lidoderm 5% Patch.12 Hr) 1 patch DAILY T-DERMAL Last administered on 09/28/17at 07:58; Start 09/22/17 at 15:30 Magnesium Hydroxide (Milk Of Magnesia Liq) 10 ml Q12H PRN PO CONSTIPATION; Start 09/22/17 at 17:45; Stop 09/23/17 at 07:44; Status DC Methocarbamol (Robaxin) 500 mg Q8H PO Last administered on 09/28/17at 07:57; Start 09/22/17 at 16:00 Metoprolol Tartrate (Lopressor) 25 mg ORDER CLERK PRN PO SEE LABEL COMMENTS; Start 09/25/17 at 04:00; Stop 09/28/17 at 03:59; Status DC Miscellaneous Information ALL NURSING DEPARTME... UNSCH PRN .XX SEE LABEL COMMENTS; Start 09/25/17 at 12:30; Stop 09/26/17 at 12:29; Status DC Miscellaneous Information (Post-op Orders (for Pharmacy)) STAT ONCE XX ; Start 09/22/17 at 17:45; Stop 09/22/17 at 19:35; Status DC Miscellaneous Medication ([facility] [place] [facility] Information) ONCE ONCE XX ; Start 09/22 at 17:45; Stop 09/22/17 at 19:35; Status DC Morphine Sulfate (Morphine Inj) 5 mg Q3H PRN IV PUSH Pain after LAMINATION SPINNER discontinued Last administered on 09/26/17 21:27; Start 09/22/17 at 17:45 Multivitamins/ Minerals Therapeutic (Theragran M Tab) 1 tab DAILY PO Last administered on 09/28/17 07:57; Start 09/23/17 at 09:00 Ondansetron HCl (Zofran Inj) 4 mg Q4H PRN IVP NAUSEA OR VOMITING Last administered on 09/28/17 03:11; Start 09/22/17 at 17:45 Oxycodone HCl (Roxicodone) 10 mg Q4H PRN PO PAIN SCALE 6 TO 10 Last administered on 09/22/17 16:32; Start 09/22/17 at 15:30; Stop 09/22/17 at 19:31; Status DC Polyethylene Glycol/ Electrolytes (Colyte Liq) 4,000 ml ONCE ONCE PO Last administered on 09/26/17 14:39; Start 09/26/17 at 16:00; Stop 09/26/17 at 16:01; Status DC Povidone Iodine (Betadine 5% Antisepsis Kit) 1 applic ORDER CLERK PRN EACH NARE SEE LABEL COMMENTS; Start 09/25/17 at 04:00; Stop 09/28/17 at 03:59; Status DC Senna/Docusate Sodium (Ileana-Colace) 1 tab BID PO Last administered on 09/28/17at 07:57; Start 09/22/17 at 21:00 Sodium Chloride 500 ml @ 30 mls/hr [id number] PRN IV SEE LABEL COMMENTS; Start 09/25/17 at 04:00; Stop 09/27/17 at 17:16; Status DC Sodium Chloride (NS Flush) 2 ml UNSCH PRN IV FLUSH FLUSH AFTER USING IV ACCESS Last administered on 09/26/17at 16:44; Start 09/22/17 at 15:30 A/P Assessment and Plan 1. Status post traumatic fall with left hip fracture and left pubic ramus fracture status post op day #3 for left troch nail- continue postoperative care , pain control and physical therapy per orthopedic surgery 2. Abnormal CT of the chest and abdomen with findings of Enlarged bilateral axillary adenopathy and adenopathy in the upper abdomen concerning for lymphoma/ leukemia versus metastatic disease. -Patient has a insignificant past history with no recent abnormal review of systems symptoms. s/p left axillary note excisional biopsy- awaiting the pathology-f/u as outpatient with oncology. s/p EGD and colonoscopy with gastritis, hiatal hernia, diverticulosis and internal and external hemorrhoids. 3. questionable psych history with suicidal attempt in the past; psych consulted and cleared for discharge. 4. Tobacco abuse- cessation counseling 5. DVT prophylaxis- Lovenox/ aspirin upon discharge. Discharge Planning d/w the case management today; patient is currently homeless- [facility] and no [facility] benefits. the patient is planning to stay at a [facility]; will try to provide home PT upon discharge. dc planning within the next 24 hrs. Pete Caputo MD Sep 28, 2017 13:22
--- NOTE | 2017-09-28 17:00 | HHI.DS ---
Discharge Summary Admission Date Sep 22, 2017 at 13:19 Discharge Date: Sep 28, 2017 Admitting Diagnosis hip fracture, fall (1) Fracture, intertrochanteric, left femur ICD Codes: S72.142A - Displaced intertrochanteric fracture of left femur, initial encounter for closed fracture Status: Acute (2) Fracture of left ischium ICD Codes: S32.602A - Unspecified fracture of left ischium, initial encounter for closed fracture Status: Acute (3) Pelvic hematoma in male ICD Codes: N50.1 - Vascular disorders of male genital organs Status: Acute (4) Fracture of left inferior pubic ramus ICD Codes: S32.592A - Other specified fracture of left pubis, initial encounter for closed fracture Status: Acute (5) Fall, initial encounter ICD Codes: W19.XXXA - Unspecified fall, initial encounter Diagnosis: Principal Brief History S/P Trauma: Fall CBC/BMP: 09/26/17 0708 09/26/17 0708 Significant Findings Laboratory Tests Test 09/25/17 17:30 09/26/17 07:08 Urine Turbidity HAZY (CLEAR) Urine Glucose (UA) 150 mg/dL (NEG) Urine Mucus FEW /lpf (OCC) Red Blood Count 3.61 MIL/MM3 (4.50-5.90) Hemoglobin 10.4 GM/DL (13.0-17.0) Hematocrit 30.5 % (39.0-51.0) Neutrophils (%) (Auto) 75.0 % (16.0-70.0) Monocytes (%) (Auto) 10.4 % (0.0-8.0) Monocytes # (Auto) 1.0 TH/MM3 (0-0.9) Total Protein 6.1 GM/DL (6.4-8.2) Albumin 2.7 GM/DL (3.4-5.0) Calcium Level 8.2 MG/DL (8.5-10.1) Anion Gap 4 MEQ/L (5-15) Imaging Last Impressions Chest X-Ray 09/25/17 0600 Signed Impressions: Service Date/Time: Monday, September 25, 2017 04:43 - CONCLUSION: No significant change has occurred. Kendall Borges MD Pelvis X-Ray 09/22/17 1130 Signed Impressions: Service Date/Time: September 11:30 - CONCLUSION: Nondisplaced fractures suspected involving the pelvis as detailed above. Consider CT to further evaluate. Yaniv Alvarez Jr., MD Head CT 09/22/171129 Signed Impressions: Service Date/Time: September 11:42 - CONCLUSION: 1. No acute hemorrhage or mass effect. 2. Remote postsurgical changes with screw-plate fixation devices anterior maxilla. There is an apparent old left nasal bone fracture. Lalo Danielson MD Chest CT 09/22/171129 Signed Impressions: Service Date/Time: September 11:50 - CONCLUSION: 1. Enlarged bilateral axillary adenopathy and adenopathy in the upper abdomen concerning for lymphoma/leukemia versus metastatic disease. 2. No acute thoracic injury. 3. Large hiatal hernia. 4. Right lower lateral rib fracture appear subacute to chronic. Hong Damian MD Cervical Spine CT 09/22/171129 Signed Impressions: Service Date/Time: September 11:44 - CONCLUSION: 1. No fracture or dislocation. 2. Mild degenerative changes. Yaniv Alvarez Jr., MD Abdomen/Pelvis CT 09/22/171129 Signed Impressions: Service Date/Time: September 11:48 - CONCLUSION: 1. Acute fractures involving the left ischium, left inferior pubic ramus, and left intertrochanteric hip with small left pelvic hematoma. 2. Retroperitoneal adenopathy worrisome for a myeloproliferative disorder. 3. Tiny low-density lesions involving the liver likely related to cysts. Yaniv Alvarez Jr., MD Hip X-Ray 09/22/17 0000 Signed Impressions: Service Date/Time: September 18:15 - CONCLUSION: ORIF of left proximal femur fracture with hardware in good position. Steve Teague MD Femur X-Ray 09/22/17 0000 Signed Impressions: Service Date/Time: September 11:30 - CONCLUSION: 1. Comminuted left femoral intertrochanteric fracture. 2. Nondisplaced left inferior pubic ramus fracture. Vaughn Beltre MD PE at Discharge GENERAL: 62-year-old well-nourished male OOB in chair. SKIN: Warm and dry. HEAD: Normocephalic. NECK: Trachea midline. No JVD. CARDIOVASCULAR: Regular rate and rhythm. RESPIRATORY: No accessory muscle use. Lungs are clear to auscultation. Breath sounds equal bilaterally. GASTROINTESTINAL: BS + x 4 quads. Abdomen soft, non-tender, nondistended. MUSCULOSKELETAL: Extremities without cyanosis, or edema. + Perfused. MAEW. NEUROLOGICAL: Awake and alert. Normal speech. Hospital Course [place]: Fell approximately 10 feet from a tree landing on his left hip. No LOC. INJURIES: RIGHT rib fx (sub acute vs. chronic) LEFT ischium fx LEFT inferior pubic ramus fx (non-op) LEFT femoral intertrochanteric fx Small pelvic hematoma PMHx: Tobacco use 09/22: LEFT troch nail 09/25: Biopsy LEFT axilla 09/27: Colonoscopy with biopsy. RIGHT rib fx Pulmonary toileting Pain control OOB -PT and OT ordered LEFT ischium fx, LEFT inferior pubic ramus fx, LEFT femoral intertrochanteric fx ,Small pelvic hematoma Orthopedics consulted 09/22: Left troch nail Pain control OOB - PT and OT ordered TTWB LLE Lovenox Dressings per orthopedics H&H stable Adenopathy Hospitalist consulted Hematology consulted GI consulted 09/25: Lymph node biopsy 09/27: Colonoscopy with biopsy Follow-up with hematology as outpatient for biopsy results Schizoaffective disorder Psychiatrist consulted Supportive care Plan of care discussed with patient at bedside. Patient is clear from trauma surgery standpoint to safely discharged home with home health care. Pt Condition on Discharge: Stable Discharge Disposition: Disch w/ Home Health Serv Discharge Instructions DIET: Follow Instructions for: As Tolerated, No Restrictions Activities you can perform: See Additionl Instruction Activities to Avoid: Concussion Sports, Contact Sports, Strenuous Activity Other Activity Instructions: Toe touch weight bearing to left leg Chana López Sep 28, 2017 17:00
== END 2017-09-28 17:43 | disposition home or self-care (01) | DRG 956 ==
LOC: NEPI 11:28 → EDBD 13:19 → NEDA 13:19 → MERGE 13:19 → N06B 15:06
PROVIDERS: ADMIT Surgery; ATTEND Surgery
PROC: 0QS706Z Reposition Left Upper Femur with Intramedullary Internal Fixation Device, Open Approach (ICD-10-PCS; principal; 2017-09-22 17:40)
PROC: 07B60ZX Excision of Left Axillary Lymphatic, Open Approach, Diagnostic (ICD-10-PCS; 2017-09-25)
PROC: 0DBP8ZX Excision of Rectum, Via Natural or Artificial Opening Endoscopic, Diagnostic (ICD-10-PCS; 2017-09-27)
PROC: 0DB98ZX Excision of Duodenum, Via Natural or Artificial Opening Endoscopic, Diagnostic (ICD-10-PCS; 2017-09-27)
PROC: 0DB68ZX Excision of Stomach, Via Natural or Artificial Opening Endoscopic, Diagnostic (ICD-10-PCS; 2017-09-27)
DX: S72.142A Displaced intertrochanteric fracture of left femur, initial encounter for closed fracture (principal); S32.602A Unspecified fracture of left ischium, initial encounter for closed fracture; S32.592A Other specified fracture of left pubis, initial encounter for closed fracture; C85.90 Non-Hodgkin lymphoma, unspecified, unspecified site; K76.89 Other specified diseases of liver; S22.31XA Fracture of one rib, right side, initial encounter for closed fracture; W14.XXXA Fall from tree, initial encounter; W17.89XA Other fall from one level to another, initial encounter; F17.210 Nicotine dependence, cigarettes, uncomplicated; Z59.0 Homelessness; Z80.42 Family history of malignant neoplasm of prostate; Z80.1 Family history of malignant neoplasm of trachea, bronchus and lung; K57.30 Diverticulosis of large intestine without perforation or abscess without bleeding; K64.4 Residual hemorrhoidal skin tags; K64.8 Other hemorrhoids; K62.1 Rectal polyp; K44.9 Diaphragmatic hernia without obstruction or gangrene; K29.70 Gastritis, unspecified, without bleeding; F31.9 Bipolar disorder, unspecified; F25.9 Schizoaffective disorder, unspecified
CPT/HCPCS: 70450; 71045; 71260; 72125; 72170; 73501; 73551; 74177; 76000; 80048; 80053; 81001; 83036; 83615; 83735; 84100; 84439; 84443; 85025; 85027; 85610; 85730; 86703; 86850; 86900; 86901; 88305; 88312; 88341; 88342; 93005; 94150; 94667; 94668; C1713; J0131; J0690; J1100; J1580; J1650; J2250; J2270; J2405; J2710; J3010; J3370; J7030; J7050; Q9967